=== PATIENT | male | born 1950 | race Caucasian/White ===

== ENCOUNTER → 2017-07-09 | Day surgery (SDC) | payer BC, MEDICARE ==
[2017-07-08 11:39] VITALS: BMI 29.1
[~2017-07-09] MED LIST: FLU VACC QS2017-18 36 mo. & older 0.5 ML SYRINGE IM ONE
[2017-07-09 10:12] LABS: #Basophils 0.1 thou/uL (0.0-0.2); #Monocytes 0.8 thou/uL (0.11-0.59); #Neutrophils 4.2 thou/uL (1.40-6.50); %Basophils 1.2 % (0.0-1.0); %Eosinophils 0.6 % (0.0-10.0); %Lymphocytes 15.6 % (21.0-51.0); %Monocytes 13.7 % (0.0-10.0); Hematocrit 40.1 % (42.0-52.0); Mean Platelet Volume 8.8 fL (7.4-10.4); Red Blood Cell (RBC) Count 4.39 mill/uL (4.70-6.10); White Blood Cell (WBC) Count 6.1 thou/uL (4.8-10.8)
[2017-07-09 10:17] LABS: Prothrombin Time 15.8 SEC (12.0-14.7)
[2017-07-09 10:18] LABS: PTT 50.3 SEC (22.9-36.1)
--- NOTE | 2017-07-09 11:54 | ULT ---
ULTRASOUND GUIDED PARACENTESIS: Date: 07-09-17 History: Symptomatic ascites. FINDINGS: Informed consent was obtained prior to the procedure. Pre-procedural imaging demonstrates irregular peripheral contour of the liver, suspicious for cirrho sis. There is significant ascites throughout the abdomen/pelvis. Skin overlying the mid right abdome n was prepped and draped in normal sterile fashion. With direct sonographic guidance, a 5 Icelandic Lila h catheter is advanced into the ascites and removal of the stylet yields clear yellow fluid. 5 L wer e removed. Significant fluid is seen within the abdomen and pelvis following removal of 5 L. The pat ient tolerated to procedure well. IMPRESSION: Successful ultrasound guided paracentesis. 5 L of clear/yellow ascites obtained. POS: [facility]
[2017-07-10 00:02] VITALS: TEMP 97.7
== END | disposition home or self-care (01) ==
LOC: ULT 08:30
PROVIDERS: ATTEND Internal Medicine
PROC: BW40ZZZ Ultrasonography of Abdomen (ICD-10-PCS; principal; 2017-07-09)
PROC: 0W9G3ZZ Drainage of Peritoneal Cavity, Percutaneous Approach (ICD-10-PCS; principal; 2017-07-09)
DX: R18.8 Other ascites (principal); F17.210 Nicotine dependence, cigarettes, uncomplicated; E78.5 Hyperlipidemia, unspecified; I10 Essential (primary) hypertension; Z79.82 Long term (current) use of aspirin; Z79.899 Other long term (current) drug therapy; Z91.041 Radiographic dye allergy status; Z88.5 Allergy status to narcotic agent; Z98.890 Other specified postprocedural states; Z80.0 Family history of malignant neoplasm of digestive organs
CPT/HCPCS: 36415; 49083; 85025; 85610; 85730; 90471; 90682; G0008; Q2036

== ENCOUNTER 2017-08-07 10:56 | Day surgery (SDC) | payer BC, MEDICARE ==
[2017-08-06 10:10] VITALS: BMI 29.0
[~2017-08-07 10:56] MED LIST changes: -FLU VACC QS2017-18 36 mo. & older 0.5 ML SYRINGE IM ONE; +FLU VACC TS2017-18 (>65YR) 0.5 ML SYRINGE IM ONE
[2017-08-07] MEDS ORDERED: Albumin 25% 200 ML ONE (11:10)
[2017-08-07] MEDS ORDERED: Sodium Chloride 0.9% 10 ML ONE (11:11)
[2017-08-07 12:58] VITALS: BP 138/79; TEMP 97.8
--- NOTE | 2017-08-07 13:41 | ULT ---
SONOGRAPHIC GUIDED PARACENTESIS: HISTORY: Recurrent ascites. FINDINGS: After explaining the procedure and answering all questions, the right lower quadrant was prepped and draped in the usual sterile fashion. Sterile technique, buffered local anesthesia, sonographic raisa nce, and an anterior right lower quadrant approach were used to carefully advance the tip of a 19-gau Mebelrama needle and catheter into the free fluid. The catheter was left to drain a total volume of 6. 0 L clear yellow liquid. The catheter was removed. Postprocedure imaging shows improvement but a mo derate amount of residual liquid. The patient tolerated the procedure well and was dismissed in good condition. IMPRESSION: Technically successful sonographic-guided paracentesis. [facility]: [facility]
== END 2017-08-07 12:00 | disposition home or self-care (01) ==
LOC: ULT 10:56
PROVIDERS: ATTEND Internal Medicine
PROC: BW40ZZZ Ultrasonography of Abdomen (ICD-10-PCS; principal; 2017-08-07)
PROC: 0W9G3ZZ Drainage of Peritoneal Cavity, Percutaneous Approach (ICD-10-PCS; principal; 2017-08-07)
DX: R18.8 Other ascites (principal); K76.6 Portal hypertension; K74.60 Unspecified cirrhosis of liver; I10 Essential (primary) hypertension; E78.5 Hyperlipidemia, unspecified; F17.210 Nicotine dependence, cigarettes, uncomplicated; Z88.5 Allergy status to narcotic agent; Z79.899 Other long term (current) drug therapy; Z98.890 Other specified postprocedural states; Z79.82 Long term (current) use of aspirin; Z88.8 Allergy status to other drugs, medicaments and biological substances
CPT/HCPCS: 49083; A4216; P9047

== ENCOUNTER 2017-08-28 12:11 | Day surgery (SDC) | payer BC, MEDICARE ==
[2017-08-28 11:17] VITALS: BMI 28.3
[2017-08-28 12:27] LABS: #Basophils 0.1 thou/uL (0.0-0.2); #Lymphocytes 0.8 thou/uL (1.20-3.40); #Monocytes 0.7 thou/uL (0.11-0.59); #Neutrophils 5.4 thou/uL (1.40-6.50); %Eosinophils 0.5 % (0.0-10.0); %Lymphocytes 11.5 % (21.0-51.0); %Monocytes 10.5 % (0.0-10.0); Hematocrit 40.1 % (42.0-52.0); Mean Platelet Volume 8.5 fL (7.4-10.4); Red Blood Cell (RBC) Count 4.42 mill/uL (4.70-6.10)
[2017-08-28 12:50] LABS: PTT 40.2 SEC (22.9-36.1); Prothrombin Time 15.7 SEC (12.0-14.7)
[2017-08-28] MEDS ORDERED: Lidocaine 1% PF 5 ML VIAL ONE (13:24)
--- NOTE | 2017-08-28 16:03 | ULT ---
ULTRASOUND GUIDED PARACENTESIS: Date: 08-28-17 History: Ascites. Technique: Informed consent was obtained. The patient was placed on the sonography table in the supine position. Patient was administered albumin intravenously (75 grams) as requested. Limited sonographic evaluati on of the abdomen was performed. An area in the mid axillary line right upper quadrant was marked and then meticulously prepped and draped in the usual sterile fashion. Skin and subcutaneous tissues were infiltrated with buffered 1% Lidocaine for local anesthesia. A sma ll skin incision was made. Utilizing concurrent real-time ultrasound guidance, a 19 gauge Yueh needle with 5 Czech sheath was advanced into the abdomen. After the return of fluid, the sheath was advanc ed and needle was removed. Approximately 8 L of clear straw colored fluid was aspirated. Introducer sheath was removed and hemostatis was achieved with direct pressure. Dry sterile dressing was placed. Patient tolerated procedure well and without immediate complication. Patient was briefly monitored in Radiology Nurses Holding Area prior to discharged. IMPRESSION: Technically successful ultrasound guided paracentesis. [facility]: [facility]
[2017-08-28 16:19] VITALS: BP 128/89; TEMP 98.2
== END 2017-08-28 15:00 | disposition home or self-care (01) ==
LOC: ULT 12:11
PROVIDERS: ATTEND Internal Medicine
PROC: BW40ZZZ Ultrasonography of Abdomen (ICD-10-PCS; principal; 2017-08-28)
PROC: 0W9G3ZX Drainage of Peritoneal Cavity, Percutaneous Approach, Diagnostic (ICD-10-PCS; principal; 2017-08-28)
DX: K74.60 Unspecified cirrhosis of liver (principal); R18.8 Other ascites; I10 Essential (primary) hypertension; E78.5 Hyperlipidemia, unspecified; F17.210 Nicotine dependence, cigarettes, uncomplicated; Z88.5 Allergy status to narcotic agent; Z91.041 Radiographic dye allergy status; Z79.899 Other long term (current) drug therapy; Z80.0 Family history of malignant neoplasm of digestive organs
CPT/HCPCS: 36415; 49083; 85025; 85610; 85730; J2001; P9047

== ENCOUNTER → 2017-09-19 | Day surgery (SDC) | payer BC, MEDICARE ==
[2017-09-18 08:59] VITALS: BMI 30.4
[~2017-09-19] MED LIST changes: +Sodium Chloride 0.9% 10 ML ONE
--- NOTE | 2017-09-19 15:24 | ULT ---
ULTRASOUND GUIDED PARACENTESIS: Date: 09-19-17 History: 67-year-old male with symptomatic ascites. FINDINGS: Informed consent was obtained prior to the procedure. Pre procedural ultrasound demonstrates significant ascites throughout the abdomen/pelvis. The lateral aspect of the mid right abdomen is prepped and draped in normal sterile fashion and anest hetized with 1% buffered Lidocaine. With direct sonographic guidance, a 5 Turks And Caicos Islander [employer]h catheter was advanced into the ascites and removal of the stylet yields yellow fluid. 8 L were removed. The patient tolerated the procedure well. IMPRESSION: Successful ultrasound guided paracentesis yielding 8 L of yellow fluid. POS: [facility]
== END ==
LOC: ULT 12:37
PROVIDERS: ATTEND Internal Medicine
PROC: 0W9G3ZX Drainage of Peritoneal Cavity, Percutaneous Approach, Diagnostic (ICD-10-PCS; principal; 2017-09-19)
DX: K74.60 Unspecified cirrhosis of liver (principal); R18.8 Other ascites; E78.5 Hyperlipidemia, unspecified; I10 Essential (primary) hypertension; F17.200 Nicotine dependence, unspecified, uncomplicated; Z88.5 Allergy status to narcotic agent; Z91.041 Radiographic dye allergy status; Z79.899 Other long term (current) drug therapy
CPT/HCPCS: 49083; A4216; P9047

== ENCOUNTER 2017-10-03 08:06 | Day surgery (SDC) | payer BC, MEDICARE ==
[2017-10-02 10:50] VITALS: BMI 30.4
[~2017-10-03 08:06] MED LIST changes: -Sodium Chloride 0.9% 10 ML ONE
[2017-10-03] MEDS ORDERED: Sodium Bicarbonate 2.4 MEQ/5 ML ONE (08:11)
[2017-10-03 08:35] LABS: #Lymphocytes 0.6 thou/uL (1.20-3.40); #Monocytes 0.7 thou/uL (0.11-0.59); #Neutrophils 5.1 thou/uL (1.40-6.50); %Basophils 0.5 % (0.0-1.0); %Eosinophils 0.7 % (0.0-10.0); %Lymphocytes 9.6 % (21.0-51.0); %Monocytes 10.7 % (0.0-10.0); %Neutrophils 78.5 % (42.0-75.0); Mean Corpuscular Hemoglobin 27.7 pg (27.0-31.0); Mean Corpuscular Volume 86.6 fl (80.0-94.0); Mean Platelet Volume 8.5 fL (7.4-10.4); Platelet Count 145 thou/uL (130-400); RBC Distribution Width 13.8 % (11.5-14.5); Red Blood Cell (RBC) Count 4.68 mill/uL (4.70-6.10); White Blood Cell (WBC) Count 6.5 thou/uL (4.8-10.8)
[2017-10-03 08:36] LABS: INR-International Normal Ratio 1.2; PTT 41.4 SEC (22.9-36.1); Prothrombin Time 15.8 SEC (12.0-14.7)
[2017-10-03 10:43] VITALS: BP 130/74; TEMP 98
--- NOTE | 2017-10-03 11:40 | ULT ---
ULTRASOUND-GUIDED PARACENTESIS: CLINICAL INDICATION: Ascites. PROCEDURE: After informed consent had been obtained, the patient was escorted to the ultrasound suite and placed in a supine position. The abdomen was imaged which revealed adequate ascites for the procedure. Th e skin of the abdomen was then prepped and draped in the standard sterile fashion and the skin surfac e, subcutaneous tissues, and peritoneal lining of the abdomen were anesthetized with 1% Lidocaine buf fered with sodium bicarbonate. A right lower quadrant approach was selected. A small skin incision was made at the site of topical anesthesia. Subsequently, under real-time ultrasound guidance a VHX catheter was advanced through the incision site into the peritoneal cavity. Ascites was present at the catheter hub. The catheter was then secured to vacuum sealed sterile containers, via sterile tub ing and subsequently 10 L of clear yellow ascites was drained from the patient. The patient was then removed from the patient. The patient tolerated the procedure well without evidence of complication . Postprocedure imaging revealed no complication and interval reduction in volume of ascites. The p atient was monitored by a radiology nurse and was stable in condition. IMPRESSION: Technically successful ultrasound-guided paracentesis, as above. POS: [facility]
== END 2017-10-03 10:18 | disposition home or self-care (01) ==
LOC: ULT 08:06
PROVIDERS: ATTEND Internal Medicine
PROC: 0W9G3ZX Drainage of Peritoneal Cavity, Percutaneous Approach, Diagnostic (ICD-10-PCS; principal; 2017-10-03)
DX: K74.60 Unspecified cirrhosis of liver (principal); R18.8 Other ascites; F17.200 Nicotine dependence, unspecified, uncomplicated; Z88.5 Allergy status to narcotic agent; Z91.041 Radiographic dye allergy status; Z79.899 Other long term (current) drug therapy
CPT/HCPCS: 36415; 49083; 85025; 85610; 85730; P9047

== ENCOUNTER 2017-10-24 10:09 | Day surgery (SDC) | payer BC, MEDICARE ==
[2017-10-24] MEDS ORDERED: Sodium Bicarbonate 2.4 MEQ/5 ML ONE (11:16)
[2017-10-24 12:56] VITALS: BMI 22.9
[2017-10-24 12:57] VITALS: BP 130/75; TEMP 98
--- NOTE | 2017-10-24 13:51 | ULT ---
EXAM: ULTRASOUND GUIDED PARACENTESIS: COMPARISON: 10/03/17. HISTORY: Ascites. FINDINGS: Technically successful ultrasound-guided paracentesis. A total of 10 L of yellow-color ascites was a spirated. Post procedure image does demonstrate ascites to still be present. TECHNIQUE: Consent is perform an ultrasound-guided paracentesis. The patient's right lower quadrant was deemed appropriate. The skin was prepped and draped in sterile fashion. 1% Lidocaine, buffered with sodium bicarbonate was used for local anesthesia. Under ultrasound guidance, a 5 Bulgarian 7 cm [employer]eh catheter was advanced into the peritoneal space. Via vacuum bottles, a total 10 L of yellow-color ascites wa s aspirated. The patient tolerated the procedure well. No immediate or post procedure complication. IMPRESSION: Technically successful ultrasound-guided paracentesis. POS: [facility]
== END 2017-10-24 12:15 | disposition home or self-care (01) ==
LOC: ULT 10:09
PROVIDERS: ATTEND Internal Medicine
PROC: 0W9G3ZX Drainage of Peritoneal Cavity, Percutaneous Approach, Diagnostic (ICD-10-PCS; principal; 2017-10-24)
DX: K74.60 Unspecified cirrhosis of liver (principal); R18.8 Other ascites; F17.200 Nicotine dependence, unspecified, uncomplicated; Z88.5 Allergy status to narcotic agent; Z91.041 Radiographic dye allergy status
CPT/HCPCS: 49083; P9047

== ENCOUNTER 2017-10-30 18:25 | Emergency (ER) | payer BC, MEDICARE ==
[2017-10-30 18:54] LABS: #Lymphocytes 0.6 thou/uL (1.20-3.40); #Monocytes 0.6 thou/uL (0.11-0.59); #Neutrophils 4.8 thou/uL (1.40-6.50); %Basophils 0.6 % (0.0-1.0); %Eosinophils 0.4 % (0.0-10.0); %Lymphocytes 9.2 % (21.0-51.0); %Monocytes 9.4 % (0.0-10.0); %Neutrophils 80.4 % (42.0-75.0); Hemoglobin 12.8 g/dL (14.0-18.0); Mean Corpuscular Hemoglobin 28.5 pg (27.0-31.0); Mean Corpuscular Volume 86.2 fl (80.0-94.0); Mean Platelet Volume 8.9 fL (7.4-10.4); Platelet Count 130 thou/uL (130-400); RBC Distribution Width 15.4 % (11.5-14.5); Red Blood Cell (RBC) Count 4.49 mill/uL (4.70-6.10)
[2017-10-30 19:15] LABS: ALT (SGPT) 21 U/L (8-55); AST (SGOT) 29 U/L (5-34); Albumin 3.9 g/dL (3.4-4.8); Alkaline Phosphatase 224 U/L (40-150); Anion Gap 13 mmol/L (10-20); BUN (Urea Nitrogen) 48 mg/dL (8.4-25.7); Bilirubin, Total 0.6 mg/dL (0.2-1.2); Calc. Creatinine Clearance 0 mL/min (70-130); Calcium 9.6 mg/dL (7.8-10.44); Carbon Dioxide 24 mmol/L (23-31); Chloride 103 mmol/L (98-107); Estimated GFR-MDRD 40; Globulin 3.1 g/dL (2.4-3.5); Glucose 86 mg/dL (80-115); Potassium 4.5 mmol/L (3.5-5.1); Sodium 135 mmol/L (136-145)
[2017-10-30 19:51] LABS: INR-International Normal Ratio 1.3; PTT 38.4 SEC (22.9-36.1); Prothrombin Time 16.5 SEC (12.0-14.7)
[2017-10-30 21:59] LABS: Bilirubin Negative (Negative); Blood, Urine Negative (Negative); Clarity CLEAR (Clear); Glucose, Urine (Dipstick) Negative (Negative); Leukocyte Negative (Negative); Nitrite Negative (Negative); Protein, Urine (Dipstick) Negative (Neg-Trace); Specific Gravity, Urine 1.011 (1.002-1.036); Urobilinogen 0.2 mg/dL (0.2-1.0)
--- NOTE | 2017-10-30 23:09 | CT ---
CT ABDOMEN AND PELVIS WITHOUT IV CONTRAST 10/30/17 HISTORY: Alcoholic cirrhosis. Abdominal distention and penile edema. Patient complains of right lower quadrant tenderness to touch. COMPARISON: None available. FINDINGS: There is atelectasis at the left lung base. The right lung base is clear. Vascular calcifications are seen in the abdominal aorta and iliac arteries. There is a moderate amount of intraperitoneal free fluid. Liver demonstrates a nodular peripheral contour suggesting cirrhosis. The spleen is enlarged measurin g 17 cm in craniocaudal dimensions. A 2 cm left adrenal nodule is seen which does not demonstrate an attenuation coefficient consistent with an adrenal adenoma. The pancreas right adrenal gland, bilateral kidneys, and urinary bladder demonstrate a normal CT appe arance. The opacified small bowel is normal in caliber. The appendix is visualized and normal in caliber. Colonic diverticulosis is noted. There is edema within the mesentery. The main portal vein is mildly dilated measuring 1.8 cm suggesting element of portal hypertension. There is subcutaneous edema present. Degenerative changes are noted in the spine. IMPRESSION: 1. Cirrhosis and splenomegaly with findings suggestive of an element of portal hypertension. 2. Moderate amount of ascites. 3. Left adrenal nodule which cannot be characterized as an adrenal adenoma. 4. Colonic diverticulosis. 5. Small fat containing left inguinal hernia. 6. Vascular calcifications. 7. The appendix is visualized and surrounded by intraperitoneal free fluid, but the appendix is partially opacified and filled with gas and is normal in caliber. No definitive findings are seen to suggest appendicitis. POS: [facility]
[2017-10-31 01:05] LABS: BF Color Yellow; Body Fluid Source PARACENTESIS FLD; Clarity Hazy (Clear); Tube # 1
[2017-10-31 01:06] LABS: RBC Background Count 0.003
[2017-10-31 01:11] LABS: BF RBC Count - Manual 723 /cumm; BF WBC/Nonhematics Ct. - Manua 5 /cumm
== END 2017-10-31 01:50 | disposition home or self-care (01) ==
LOC: ERS 18:25
DX: R18.8 Other ascites (principal); F17.210 Nicotine dependence, cigarettes, uncomplicated
CPT/HCPCS: 36415; 49082; 74176; 80053; 81003; 83605; 83690; 85025; 85610; 85730; 89051

== ENCOUNTER 2017-11-14 10:05 | Day surgery (SDC) | payer BC, MEDICARE ==
[2017-11-13 09:35] VITALS: BMI 30.4
[2017-11-14 11:56] VITALS: TEMP 98.4
[2017-11-14 11:59] VITALS: BP 140/80
--- NOTE | 2017-11-14 13:51 | ULT ---
ULTRASOUND GUIDED PARACENTESIS: 11/14/2017 HISTORY: Cirrhosis and ascites. TECHNIQUE: After informed consent was obtained, the patient was placed on the sonography table in the supine pos ition. An appropriate access site was determined with ultrasound guidance. An area in the mid axill khloe line, right upper quadrant, was marked and then meticulously prepped and draped in the usual ster ile fashion. The skin and subcutaneous tissues were infiltrated with buffered 1% Lidocaine for local anesthesia. A small skin incision was made. Utilizing concurrent real-time ultrasound guidance, a 19 gauge needle with 5 Northern Irish sheath was advanc ed into the abdomen. Approximately 10 L of clear, straw-colored fluid was aspirated. The introducer sheath was removed, and hemostasis was achieved with direct pressure. A dry, sterile dressing was p laced. Albumin was administered intravenously during the procedure, as requested. The patient tolerated the procedure well and without immediate complication. IMPRESSION: Technically successful ultrasound guided paracentesis. POS: [facility]
== END 2017-11-14 11:45 | disposition home or self-care (01) ==
LOC: ULT 10:05
PROVIDERS: ATTEND Internal Medicine
PROC: BW40ZZZ Ultrasonography of Abdomen (ICD-10-PCS; principal; 2017-11-14)
PROC: 0W9G3ZZ Drainage of Peritoneal Cavity, Percutaneous Approach (ICD-10-PCS; principal; 2017-11-14)
DX: R18.8 Other ascites (principal); K74.60 Unspecified cirrhosis of liver; I10 Essential (primary) hypertension; E78.5 Hyperlipidemia, unspecified; F17.210 Nicotine dependence, cigarettes, uncomplicated; Z88.5 Allergy status to narcotic agent; Z91.041 Radiographic dye allergy status; Z79.82 Long term (current) use of aspirin; Z79.899 Other long term (current) drug therapy
CPT/HCPCS: 49083

== ENCOUNTER 2017-12-05 09:47 | Day surgery (SDC) | payer MEDICARE, BC ==
[2017-12-04 13:05] VITALS: BMI 30.4
[2017-12-05 10:12] LABS: #Lymphocytes 0.6 thou/uL (1.20-3.40); #Monocytes 0.7 thou/uL (0.11-0.59); #Neutrophils 4.9 thou/uL (1.40-6.50); %Eosinophils 0.5 % (0.0-10.0); %Lymphocytes 9.9 % (21.0-51.0); %Monocytes 10.6 % (0.0-10.0); Hemoglobin 13.6 g/dL (14.0-18.0); Mean Corpuscular HGB CONC 32.9 g/dL (32.0-36.0); Mean Corpuscular Hemoglobin 27.9 pg (27.0-31.0); Mean Platelet Volume 8.7 fL (7.4-10.4); Platelet Count 119 thou/uL (130-400); RBC Distribution Width 15.8 % (11.5-14.5); Red Blood Cell (RBC) Count 4.86 mill/uL (4.70-6.10); White Blood Cell (WBC) Count 6.1 thou/uL (4.8-10.8)
[2017-12-05 10:15] LABS: INR-International Normal Ratio 1.3; PTT 37.7 SEC (22.9-36.1)
[2017-12-05] MEDS ORDERED: Sodium Chloride 0.9% 20 ML ONE (11:08)
[2017-12-05 12:42] VITALS: BP 125/63; TEMP 98.3
--- NOTE | 2017-12-05 15:38 | ULT ---
ULTRASOUND GUIDED PARACENTESIS 12/05/17 Informed consent was obtained from the patient. A large pocket of fluid was localized in the right mi d abdomen. The overlying skin was prepped and draped in the usual sterile manner. A 1% lidocaine solu tion was used to anesthetize overlying soft tissues. A small dermatotomy was made. A 5 Moroccan Yueh ne edle was placed at the peritoneal cavity after localization by sonography. A total of 10 liters of pe ritoneal fluid was removed without difficulty. Some fluid remained after the 10 liters was obtained. IMPRESSION: Successful ultrasound guided paracentesis. POS: [facility]
== END 2017-12-05 12:25 | disposition home or self-care (01) ==
LOC: ULT 09:47
PROVIDERS: ATTEND Internal Medicine
PROC: 0W9G3ZZ Drainage of Peritoneal Cavity, Percutaneous Approach (ICD-10-PCS; principal; 2017-12-05)
DX: R18.8 Other ascites (principal); K74.60 Unspecified cirrhosis of liver; I10 Essential (primary) hypertension; E78.5 Hyperlipidemia, unspecified; F17.210 Nicotine dependence, cigarettes, uncomplicated; Z79.82 Long term (current) use of aspirin; Z79.899 Other long term (current) drug therapy; Z88.5 Allergy status to narcotic agent; Z91.041 Radiographic dye allergy status
CPT/HCPCS: 49083; 85025; 85610; 85730; P9047; 36415; A4216

== ENCOUNTER 2017-12-26 09:50 | Day surgery (SDC) | payer MEDICARE, BC ==
[2017-12-25 13:40] VITALS: BMI 30.4
[2017-12-26] MEDS ORDERED: Lidocaine 1% PF 5 ML VIAL ONE (10:05)
[2017-12-26] MEDS ORDERED: Sodium Bicarbonate 2.5 MEQ/5 ML VIAL ONE (10:05)
[2017-12-26] MEDS ORDERED: Albumin 25% 0 ML ONE (10:05)
[2017-12-26] MEDS ORDERED: Albumin 25% 200 ML ONE ×2 (10:19→10:48)
[2017-12-26 11:57] VITALS: BP 133/87; TEMP 98.6
--- NOTE | 2017-12-26 12:35 | ULT ---
PROCEDURE NOTE: PREPROCEDURE DIAGNOSIS: Ascites. POSTPROCEDURE DIAGNOSIS: Ascites. PROCEDURE: Ultrasound-guided paracentesis. DITCH TENDER: Dr. Rahman. COMMPLIATIONS: None. SPECIMEN: 10 liters of straw-colored fluid. TECHNIQUE: Prior to the procedure, the risks and benefits of an ultrasound-guided paracentesis were explained wi th the patient and he consented fully to the procedure. The area of largest fluid collection in the right lower quadrant of the abdomen was identified. This area of the abdominal wall was prepped and draped in the usual sterile fashion. Lidocaine was used to anesthetize the skin and soft tissues down towards the peritoneal cavity. A [place] eh needle and catheter were placed using ultrasound guidance into the peritoneal cavity. The needle was removed and the catheter left in place. This was connected to multiple vacutainer bottles. A to tyra of 10 liters of fluid was removed. After removal of the fluid, there was a moderate amount of re sidual fluid in the abdomen. IMPRESSION: Status post successful ultrasound-guided paracentesis. POS: [facility]
== END 2017-12-26 11:35 | disposition home or self-care (01) ==
LOC: ULT 09:50
PROVIDERS: ATTEND Internal Medicine
PROC: 0W9G3ZX Drainage of Peritoneal Cavity, Percutaneous Approach, Diagnostic (ICD-10-PCS; principal; 2017-12-26)
PROC: BW40ZZZ Ultrasonography of Abdomen (ICD-10-PCS; 2017-12-26)
DX: K74.60 Unspecified cirrhosis of liver (principal); R18.8 Other ascites; I10 Essential (primary) hypertension; E78.5 Hyperlipidemia, unspecified; F17.210 Nicotine dependence, cigarettes, uncomplicated; Z88.5 Allergy status to narcotic agent; Z91.041 Radiographic dye allergy status; Z79.899 Other long term (current) drug therapy; Z72.89 Other problems related to lifestyle; Z98.890 Other specified postprocedural states; Z80.0 Family history of malignant neoplasm of digestive organs
CPT/HCPCS: 49083; P9047; J2001

== ENCOUNTER 2018-01-16 09:29 | Day surgery (SDC) | payer MEDICARE, BC ==
[2018-01-16 09:50] LABS: #Lymphocytes 0.6 thou/uL (1.20-3.40); #Monocytes 0.5 thou/uL (0.11-0.59); %Basophils 0.8 % (0.0-1.0); %Eosinophils 0.4 % (0.0-10.0); %Lymphocytes 8.9 % (21.0-51.0); %Monocytes 8.1 % (0.0-10.0); %Neutrophils 81.8 % (42.0-75.0); Hemoglobin 12.8 g/dL (14.0-18.0); Mean Corpuscular HGB CONC 33.9 g/dL (32.0-36.0); Mean Corpuscular Hemoglobin 28.8 pg (27.0-31.0); Mean Corpuscular Volume 84.9 fl (80.0-94.0); Mean Platelet Volume 9.1 fL (7.4-10.4); Platelet Count 120 thou/uL (130-400); RBC Distribution Width 14.7 % (11.5-14.5); Red Blood Cell (RBC) Count 4.46 mill/uL (4.70-6.10); White Blood Cell (WBC) Count 6.2 thou/uL (4.8-10.8)
[2018-01-16] MEDS ORDERED: Sodium Bicarbonate 2.5 MEQ/5 ML VIAL ONE (09:56)
[2018-01-16 09:57] LABS: INR-International Normal Ratio 1.3; Prothrombin Time 16.4 SEC (12.0-14.7)
[2018-01-16 09:58] LABS: PTT 33.4 SEC (22.9-36.1)
--- NOTE | 2018-01-16 12:44 | ULT ---
SONOGRAPHIC GUIDED PARACENTESIS: History: Recurrent ascites. FINDINGS: After explaining the procedure and answering all questions, sonographic survey of the abdomen shows a large amount of free fluid. Sterile technique, buffered local anesthesia, sonographic guidance and a n anterior right lower quadrant approach were used to carefully advance a 19 gauge Yueh needle and ca theter into the free fluid. Catheter was left to drain a total volume of 10.0 L clear yellow liquid. Post procedure imaging shows a small amount of residual fluid. The patient tolerated the procedure we ll and was eventually discharged in good condition. IMPRESSION: Technically successful sonographic guided paracentesis. POS: [facility]
[2018-01-16 13:00] VITALS: BP 95/41; TEMP 97.7
== END 2018-01-16 11:45 | disposition home or self-care (01) ==
LOC: ULT 09:29
PROVIDERS: ATTEND Internal Medicine
PROC: 0W9G3ZZ Drainage of Peritoneal Cavity, Percutaneous Approach (ICD-10-PCS; principal; 2018-01-16)
PROC: BW40ZZZ Ultrasonography of Abdomen (ICD-10-PCS; 2018-01-16)
DX: R18.8 Other ascites (principal); K74.60 Unspecified cirrhosis of liver; I10 Essential (primary) hypertension; E78.5 Hyperlipidemia, unspecified; F17.210 Nicotine dependence, cigarettes, uncomplicated; Z79.82 Long term (current) use of aspirin; Z79.899 Other long term (current) drug therapy; Z88.5 Allergy status to narcotic agent; Z91.041 Radiographic dye allergy status
CPT/HCPCS: 49083; 85025; 85610; 85730; P9047; 36415

== ENCOUNTER 2018-02-06 10:11 | Day surgery (SDC) | payer MEDICARE, BC ==
[2018-02-05 11:44] VITALS: BMI 30.4
[2018-02-06 13:04] VITALS: BP 136/79; TEMP 97.9
--- NOTE | 2018-02-06 15:55 | ULT ---
ULTRASOUND GUIDED PARACENTESIS: HISTORY: Ascites. COMPARISON: 01/16/2018 FINDINGS: Successful ultrasound guided paracentesis. A total of 10 L of yellow-colored ascites was aspirated. There were no immediate or post procedure complications. TECHNIQUE: Consent obtained to perform an ultrasound guided paracentesis. The right lower quadrant was deemed a ppropriate. The skin was prepped and draped in a sterile fashion, and 1% Lidocaine, buffered with so dium bicarbonate, was used for local anesthesia. Under ultrasound guidance, a 5 Algerian, 7 cm cathete r was advanced into the peritoneal space. Via vacuum bottles, a total of 10 L of yellow-colored asci valdemar was aspirated. There were no immediate or post procedure complications. IMPRESSION: Technically successful ultrasound guided paracentesis. POS: [facility]
== END 2018-02-06 11:55 | disposition home or self-care (01) ==
LOC: ULT 10:11
PROVIDERS: ATTEND Internal Medicine
PROC: 0W9G3ZZ Drainage of Peritoneal Cavity, Percutaneous Approach (ICD-10-PCS; principal; 2018-02-06)
DX: R18.8 Other ascites (principal); K74.60 Unspecified cirrhosis of liver
CPT/HCPCS: 49083

== ENCOUNTER 2018-02-27 09:57 | Day surgery (SDC) | payer MEDICARE, BC ==
[2018-02-26 12:29] VITALS: BMI 24.1
[2018-02-27 10:18] LABS: #Lymphocytes 0.6 thou/uL (1.20-3.40); #Monocytes 0.6 thou/uL (0.11-0.59); #Neutrophils 5.1 thou/uL (1.40-6.50); %Basophils 0.4 % (0.0-1.0); %Eosinophils 0.3 % (0.0-10.0); %Lymphocytes 8.9 % (21.0-51.0); %Monocytes 9.5 % (0.0-10.0); %Neutrophils 80.9 % (42.0-75.0); Hemoglobin 12.4 g/dL (14.0-18.0); Mean Corpuscular HGB CONC 32.3 g/dL (32.0-36.0); Mean Corpuscular Hemoglobin 27.7 pg (27.0-31.0); Mean Corpuscular Volume 85.7 fl (80.0-94.0); Mean Platelet Volume 8.4 fL (7.4-10.4); Platelet Count 105 thou/uL (130-400); Red Blood Cell (RBC) Count 4.47 mill/uL (4.70-6.10); White Blood Cell (WBC) Count 6.3 thou/uL (4.8-10.8)
[2018-02-27 10:20] LABS: INR-International Normal Ratio 1.3; PTT 41.8 SEC (22.9-36.1); Prothrombin Time 16.5 SEC (12.0-14.7)
[2018-02-27] MEDS ORDERED: Sodium Chloride 0.9% 20 ML ONE (11:04)
[2018-02-27 12:24] VITALS: BP 107/60; TEMP 98.2
--- NOTE | 2018-02-27 13:12 | ULT ---
ULTRASOUND GUIDED PARACENTESIS: DATE: 02/27/18. COMPARISON: None. HISTORY: A 68-year-old male with symptomatic ascites. FINDINGS: Informed consent obtained prior to the procedure. Preprocedural imaging demonstrates large-volume ascites throughout the abdomen/pelvis. Mid right abdomen is prepped and draped in normal sterile fashion and the skin is anesthetized with 1 % buffered Lidocaine. With direct sonographic guidance, a 5 Cymro ArQuleeh catheter is advanced into th e ascites and removal of stylette yields yellow fluid. Ten liters were removed. The patient tolerat ed the procedure well. Significant ascites is left following removal of 10 liters. IMPRESSION: Successful ultrasound-guided paracentesis as above. POS: [facility]
== END 2018-02-27 12:00 | disposition home or self-care (01) ==
LOC: ULT 09:57
PROVIDERS: ATTEND Internal Medicine
PROC: 0W9G3ZZ Drainage of Peritoneal Cavity, Percutaneous Approach (ICD-10-PCS; principal; 2018-02-27)
DX: R18.8 Other ascites (principal); F17.200 Nicotine dependence, unspecified, uncomplicated; K74.60 Unspecified cirrhosis of liver; I10 Essential (primary) hypertension; K21.9 Gastro-esophageal reflux disease without esophagitis; D64.9 Anemia, unspecified; Z88.5 Allergy status to narcotic agent; Z79.899 Other long term (current) drug therapy; Z91.041 Radiographic dye allergy status
CPT/HCPCS: 49083; 85025; 85610; 85730; P9047; 36415; A4216

== ENCOUNTER 2018-03-13 12:39 | Day surgery (SDC) | payer MEDICARE, BC ==
[2018-03-12 14:14] VITALS: BMI 16.2
[2018-03-13] MEDS ORDERED: Sodium Chloride 0.9% 20 ML ONE (13:28)
[2018-03-13 15:58] VITALS: BP 119/49; TEMP 98.2
== END 2018-03-13 14:15 | disposition home or self-care (01) ==
LOC: ULT 12:39
PROVIDERS: ATTEND Internal Medicine
PROC: 0W9G3ZZ Drainage of Peritoneal Cavity, Percutaneous Approach (ICD-10-PCS; principal; 2018-03-13)
DX: K70.31 Alcoholic cirrhosis of liver with ascites (principal); I10 Essential (primary) hypertension; E78.5 Hyperlipidemia, unspecified; F17.210 Nicotine dependence, cigarettes, uncomplicated; Z79.899 Other long term (current) drug therapy; Z88.5 Allergy status to narcotic agent; Z91.041 Radiographic dye allergy status
CPT/HCPCS: 49083; P9047; A4216

== ENCOUNTER 2018-03-27 10:35 | Day surgery (SDC) | payer MEDICARE, BC ==
[2018-03-27 11:26] LABS: #Lymphocytes 0.5 thou/uL (1.20-3.40); #Monocytes 0.5 thou/uL (0.11-0.59); #Neutrophils 5.5 thou/uL (1.40-6.50); %Basophils 0.4 % (0.0-1.0); %Eosinophils 0.3 % (0.0-10.0); %Lymphocytes 7.2 % (21.0-51.0); %Monocytes 8.2 % (0.0-10.0); %Neutrophils 83.8 % (42.0-75.0); Mean Corpuscular HGB CONC 33.5 g/dL (32.0-36.0); Mean Corpuscular Volume 83.5 fL (78.0-98.0); Mean Platelet Volume 8.3 fL (7.4-10.4); Platelet Count 139 thou/uL (130-400); RBC Distribution Width 14.8 % (11.5-14.5); White Blood Cell (WBC) Count 6.5 thou/uL (4.8-10.8)
[2018-03-27 11:31] LABS: INR-International Normal Ratio 1.3; PTT 39.8 SEC (22.9-36.1)
[2018-03-27 11:46] LABS: ALT (SGPT) 17 U/L (8-55); AST (SGOT) 18 U/L (5-34); Albumin 4.1 g/dL (3.4-4.8); Alkaline Phosphatase 252 U/L (40-150); Anion Gap 15 mmol/L (10-20); BUN (Urea Nitrogen) 37 mg/dL (8.4-25.7); Bilirubin, Total 0.6 mg/dL (0.2-1.2); Calc. Creatinine Clearance 47 mL/min (70-130); Calcium 9.4 mg/dL (7.8-10.44); Carbon Dioxide 20 mmol/L (23-31); Chloride 104 mmol/L (98-107); Estimated GFR-MDRD 41; Globulin 2.9 g/dL (2.4-3.5); Glucose 87 mg/dL (80-115); Potassium 4.3 mmol/L (3.5-5.1); Sodium 135 mmol/L (136-145)
[2018-03-27 12:39] VITALS: BP 136/67; TEMP 98.1; BMI 27.3
--- NOTE | 2018-03-27 14:49 | ULT ---
ULTRASOUND GUIDED PARACENTESIS: HISTORY: Ascites. COMPARISON: 03/13/2018 TECHNIQUE: Consent obtained for an ultrasound guided paracentesis. The right lower quadrant was deemed appropri ate. The skin was prepped and draped in a sterile fashion, and 1% Lidocaine, buffered with sodium bi carbonate, was used for local anesthesia. Under sonographic guidance, a 5 Welsh, 7 cm Yueh catheter was advanced into the peritoneal space. Via vacuum bottles, a total of 10 L of yellow-colored ascit es was aspirated. The patient tolerated the procedure well. No immediate or post procedure complica tions. FINDINGS: Technically successful ultrasound guided paracentesis. A total of 10 L of yellow colored ascites was aspirated. There were no immediate post procedure complications. Post procedure images demonstrate ascites to still be present. IMPRESSION: Successful ultrasound-guided paracentesis. POS: [facility]
== END 2018-03-27 12:25 | disposition home or self-care (01) ==
LOC: ULT 10:35
PROVIDERS: ATTEND Internal Medicine
PROC: 0W9G3ZZ Drainage of Peritoneal Cavity, Percutaneous Approach (ICD-10-PCS; principal; 2018-03-27)
DX: R18.8 Other ascites (principal); K74.60 Unspecified cirrhosis of liver; I10 Essential (primary) hypertension; F17.200 Nicotine dependence, unspecified, uncomplicated; D64.9 Anemia, unspecified; K21.9 Gastro-esophageal reflux disease without esophagitis; E78.00 Pure hypercholesterolemia, unspecified; Z79.899 Other long term (current) drug therapy; Z88.5 Allergy status to narcotic agent; Z91.041 Radiographic dye allergy status
CPT/HCPCS: 49083; 80053; 85025; 85610; 85730

== ENCOUNTER 2018-04-10 09:56 | Day surgery (SDC) | payer MEDICARE, BC ==
[2018-04-10] MEDS ORDERED: Lidocaine 1% PF 5 ML VIAL ONE (10:04)
[2018-04-10] MEDS ORDERED: Sodium Bicarbonate 2.5 MEQ/5 ML VIAL ONE (10:04)
[2018-04-10] MEDS ORDERED: Sodium Chloride 0.9% 10 ML ONE (10:04)
[2018-04-10] MEDS ORDERED: Albumin 25% 100 ML ONE (10:25)
[2018-04-10 11:38] VITALS: BP 125/69; TEMP 98.6
--- NOTE | 2018-04-10 12:34 | ULT ---
ULTRASOUND GUIDED PARACENTESIS: 04/10/2018 HISTORY: Cirrhosis and recurrent ascites. TECHNIQUE: After informed consent was obtained, the patient as placed on the angiography table in the supine pos ition. Limited sonographic evaluation of the abdomen was performed. An area in the mid axillary mara e right upper quadrant was marked and then meticulously prepped and draped in the usual sterile fashi on. The skin and subcutaneous tissues were infiltrated with buffered 1% Lidocaine for local anesthes ia, at the intended puncture site. A small skin incision was made. Utilizing concurrent real-time ultrasound guidance, a 19 gauge V[employer] needle with a 5 Vincentian sheath was advanced into the abdomen. After the return of fluid, the catheter was advanced and the needle was removed. Approximately 10 L of clear, straw-colored fluid was aspir ated. Albumin 100 g was administered intravenously during the procedure, as requested. After 10 L of fluid was aspirated, the catheter was removed, and hemostasis was achieved with direct pressure. Follow-up sonogram demonstrates a small to moderate amount of intraperitoneal free fluid r emaining within the abdomen. A dry, sterile dressing was placed at the puncture site. The patient tolerated the procedure well an d without immediate complication. IMPRESSION: Technically successful ultrasound guided paracentesis. POS: [facility]
== END 2018-04-10 11:30 | disposition home or self-care (01) ==
LOC: ULT 09:56
PROVIDERS: ATTEND Internal Medicine
PROC: 0W9G3ZZ Drainage of Peritoneal Cavity, Percutaneous Approach (ICD-10-PCS; principal; 2018-04-10)
DX: R18.8 Other ascites (principal); K74.60 Unspecified cirrhosis of liver; F17.200 Nicotine dependence, unspecified, uncomplicated; I10 Essential (primary) hypertension; D64.9 Anemia, unspecified; K21.9 Gastro-esophageal reflux disease without esophagitis; Z88.5 Allergy status to narcotic agent; Z91.041 Radiographic dye allergy status; Z79.899 Other long term (current) drug therapy
CPT/HCPCS: 49083; P9047; A4216; J2001

== ENCOUNTER → 2018-04-24 | Day surgery (SDC) | payer MEDICARE, BC ==
[2018-04-23 12:44] VITALS: BMI 24.8
[~2018-04-24] MED LIST changes: -FLU VACC TS2017-18 (>65YR) 0.5 ML SYRINGE IM ONE; +Prevnar 13-Val Conj/PF 0.5 ML SYRINGE IM ONE
[2018-04-24 14:16] VITALS: TEMP 97.8
--- NOTE | 2018-04-24 14:21 | ULT ---
PROCEDURE ULTRASOUND GUIDED ABDOMINAL PARACENTESIS: Date: 04/24/18 INDICATION: Cirrhosis with recurrent ascites. FINDINGS: 10 liters of yellowish clear ascitic fluid remoted from the right lower quadrant. PROCEDURE NOTE: Four quadrant ultrasound shows large volume ascites in all quadrants. Right lower quadrant chosen for puncture. Overlying skin was prepped and draped in the sterile manner. Local anesthesia administered with lidocaine and bicarb. Tiny skin incision made with scalpel. A 5 Nepali Pulse catheter with needl e in place was inserted under ultrasound guidance into the ascites of the right lower quadrant. Ashley ter was advanced as needle was removed. The catheter was attached to suction drainage. 10 liters kaet orin. Postprocedure shows mild residual ascites. There were no problems or complications. POS: [facility]
== END ==
LOC: ULT 12:39
PROVIDERS: ATTEND Radiology Diagnostic Radiology
PROC: 0W9G3ZZ Drainage of Peritoneal Cavity, Percutaneous Approach (ICD-10-PCS; principal; 2018-04-24)
DX: R18.8 Other ascites (principal); K74.60 Unspecified cirrhosis of liver; R93.8 Abnormal findings on diagnostic imaging of other specified body structures
CPT/HCPCS: 49083; P9047

== ENCOUNTER 2018-05-08 09:56 | Day surgery (SDC) | payer MEDICARE, BC ==
[2018-05-07 13:14] VITALS: BMI 24.8
[2018-05-08 10:15] LABS: #Lymphocytes 0.5 thou/uL (1.20-3.40); #Monocytes 0.6 thou/uL (0.11-0.59); #Neutrophils 4.4 thou/uL (1.40-6.50); %Basophils 0.6 % (0.0-1.0); %Eosinophils 0.6 % (0.0-10.0); %Lymphocytes 9.5 % (21.0-51.0); %Monocytes 10.6 % (0.0-10.0); %Neutrophils 78.7 % (42.0-75.0); Hemoglobin 12.1 g/dL (14.0-18.0); Mean Corpuscular HGB CONC 31.6 g/dL (32.0-36.0); Mean Corpuscular Hemoglobin 26.8 pg (27.0-31.0); Mean Corpuscular Volume 84.7 fL (78.0-98.0); Mean Platelet Volume 9.5 fL (7.4-10.4); Platelet Count 112 thou/uL (130-400); RBC Distribution Width 15.5 % (11.5-14.5); Red Blood Cell (RBC) Count 4.54 mill/uL (4.70-6.10); White Blood Cell (WBC) Count 5.6 thou/uL (4.8-10.8)
[2018-05-08 10:22] LABS: INR-International Normal Ratio 1.2; PTT 40.1 SEC (22.9-36.1); Prothrombin Time 15.6 SEC (12.0-14.7)
[2018-05-08] MEDS ORDERED: Sodium Bicarbonate 2.5 MEQ/5 ML VIAL ONE (10:22)
[2018-05-08] MEDS ORDERED: Lidocaine 1% PF 5 ML VIAL ONE (10:23)
[2018-05-08 12:07] VITALS: BP 137/76; TEMP 98.1
--- NOTE | 2018-05-08 12:35 | ULT ---
ULTRASOUND GUIDED PARACENTESIS: Date: 05-08-18 History: Recurrent ascites in a patient with cirrhosis. Technique: After informed consent was obtained, patient was placed on the sonography table in the supine positio n. Limited sonographic evaluation of the abdomen was performed. An area in the midaxillary line right upper quadrant was marked and the area was meticulously prepped and draped in the usual sterile fash ion. Skin and subcutaneous tissues were infiltrated with buffered 1% Lidocaine for local anesthesia. Small skin incision was made. A 19 gauge [employer] needle with 5 Georgian catheter was advanced into the abdomen. After the return of fluid, the catheter was advanced and needle was removed. Approximately 10 L of c lear straw colored fluid was aspirated. Patient was administered of 100 grams of Albumin during the s tudy as requested. After 10 L of fluid was drained, follow up sonographic imaging demonstrates a mode rately large amount of intraperitoneal free fluid persisting in the abdomen. Dry sterile dressing was placed at the catheter entry site. Patient tolerated the procedure well and without immediate compli cation. IMPRESSION: Technically successful ultrasound guided paracentesis. [facility]: [facility]
== END 2018-05-08 11:55 | disposition home or self-care (01) ==
LOC: ULT 09:56
PROVIDERS: ATTEND Internal Medicine
PROC: 0W9G3ZZ Drainage of Peritoneal Cavity, Percutaneous Approach (ICD-10-PCS; principal; 2018-05-08)
DX: K74.60 Unspecified cirrhosis of liver (principal); R18.8 Other ascites; Z88.5 Allergy status to narcotic agent; Z91.041 Radiographic dye allergy status; Z79.82 Long term (current) use of aspirin; Z79.899 Other long term (current) drug therapy
CPT/HCPCS: 49083; 85025; 85610; 85730; P9047; 36415; J2001

== ENCOUNTER → 2018-05-22 | Day surgery (SDC) | payer MEDICARE, BC ==
[2018-05-21 12:43] VITALS: BMI 27.9
[~2018-05-22] MED LIST changes: +Lidocaine 1% PF 5 ML VIAL ONE
[2018-05-22 12:30] VITALS: TEMP 97.6
--- NOTE | 2018-05-22 14:44 | ULT ---
SONOGRAPHIC GUIDED PARACENTESIS: HISTORY: Recurrent ascites. FINDINGS: After explaining the procedure and answering all questions, sonographic survey shows a large amount o f free fluid. Sterile technique, buffered local anesthesia, sonographic guidance, and a right latera l approach were used to carefully advance a 19 gauge Yueh needle and catheter into the free fluid. T he catheter was left to drain a total volume of 10 L of clear yellow liquid. The catheter was remove d. A large amount of liquid remained within the abdomen. The patient tolerated the procedure well a nd was dismissed in good condition. IMPRESSION: Technically successful sonographic guided paracentesis. POS: [facility]
== END ==
LOC: ULT 10:38
PROVIDERS: ATTEND Internal Medicine
PROC: 0W9G3ZZ Drainage of Peritoneal Cavity, Percutaneous Approach (ICD-10-PCS; principal; 2018-05-22)
DX: R18.8 Other ascites (principal); K74.60 Unspecified cirrhosis of liver; Z88.5 Allergy status to narcotic agent; Z79.899 Other long term (current) drug therapy
CPT/HCPCS: 49083; J2001

== ENCOUNTER 2018-06-05 12:36 | Day surgery (SDC) | payer MEDICARE, BC ==
[2018-06-05 15:45] VITALS: BMI 27.9
[2018-06-05 15:55] VITALS: BP 129/71; TEMP 97.7
--- NOTE | 2018-06-05 15:55 | ULT ---
ULTRASOUND GUIDED PARACENTESIS: HISTORY: Ascites. COMPARISON: 05/22/18. FINDINGS: Technically successful ultrasound-guided paracentesis. A total of 10 L of yellow-color ascites was a spirated. The patient tolerated the procedure well. No immediate or postprocedure complications. TECHNIQUE: Consent was obtained to perform ultrasound-guided paracentesis. The patient's abdomen was evaluated. The right lower quadrant was deemed appropriate. The skin was prepped and draped in sterile fashio n. 1% Lidocaine, buffered with sodium bicarbonate, was used for local anesthesia. Under ultrasound guidance, a 5 Surinamese 7 cm Rundowneh catheter was advanced into the peritoneal space. Via vacuum bottles, a total of 10 L of dark yellow-colored ascites was aspirated. The patient tolerated the procedure we ll. No immediate or postprocedure complications. IMPRESSION: Technically successful ultrasound-guided paracentesis. POS: [facility]
== END 2018-06-05 14:20 | disposition home or self-care (01) ==
LOC: ULT 12:36
PROVIDERS: ATTEND Internal Medicine
PROC: 0W9G3ZZ Drainage of Peritoneal Cavity, Percutaneous Approach (ICD-10-PCS; principal; 2018-06-05)
DX: K70.31 Alcoholic cirrhosis of liver with ascites (principal); I10 Essential (primary) hypertension; E78.5 Hyperlipidemia, unspecified; F17.210 Nicotine dependence, cigarettes, uncomplicated; Z79.82 Long term (current) use of aspirin; Z79.899 Other long term (current) drug therapy; Z88.5 Allergy status to narcotic agent; Z91.041 Radiographic dye allergy status
CPT/HCPCS: 49083

== ENCOUNTER 2018-06-19 09:37 | Day surgery (SDC) | payer MEDICARE, BC ==
[2018-06-19 09:58] LABS: #Lymphocytes 0.6 thou/uL (1.20-3.40); #Monocytes 0.8 thou/uL (0.11-0.59); %Basophils 0.6 % (0.0-1.0); %Eosinophils 0.4 % (0.0-10.0); %Lymphocytes 11.4 % (21.0-51.0); %Neutrophils 73.6 % (42.0-75.0); Hemoglobin 12.8 g/dL (14.0-18.0); Mean Corpuscular HGB CONC 32.7 g/dL (32.0-36.0); Mean Corpuscular Hemoglobin 27.4 pg (27.0-31.0); Mean Corpuscular Volume 83.8 fL (78.0-98.0); Mean Platelet Volume 9.6 fL (7.4-10.4); Platelet Count 121 thou/uL (130-400); RBC Distribution Width 15.2 % (11.5-14.5); Red Blood Cell (RBC) Count 4.67 mill/uL (4.70-6.10); White Blood Cell (WBC) Count 5.4 thou/uL (4.8-10.8)
[2018-06-19] MEDS ORDERED: Lidocaine 1% PF 5 ML VIAL ONE (10:03)
[2018-06-19 10:04] LABS: INR-International Normal Ratio 1.3; PTT 40.6 SEC (22.9-36.1); Prothrombin Time 16.4 SEC (12.0-14.7)
[2018-06-19 10:15] LABS: ALT (SGPT) 12 U/L (8-55); AST (SGOT) 21 U/L (5-34); Albumin 3.8 g/dL (3.4-4.8); Alkaline Phosphatase 169 U/L (40-150); Anion Gap 11 mmol/L (10-20); BUN (Urea Nitrogen) 42 mg/dL (8.4-25.7); Bilirubin, Total 0.8 mg/dL (0.2-1.2); Calc. Creatinine Clearance 0 mL/min (70-130); Calcium 9.6 mg/dL (7.8-10.44); Carbon Dioxide 25 mmol/L (23-31); Chloride 102 mmol/L (98-107); Estimated GFR-MDRD 34; Globulin 3.2 g/dL (2.4-3.5); Glucose 90 mg/dL (80-115); Potassium 4.2 mmol/L (3.5-5.1); Sodium 134 mmol/L (136-145)
[2018-06-19 13:30] VITALS: BP 129/83; TEMP 98.6
--- NOTE | 2018-06-19 14:24 | ULT ---
ULTRASOUND GUIDED PARACENTESIS: COMPARISON: 06/13/2018. HISTORY: Ascites. FINDINGS: Successful ultrasound-guided paracentesis. A total of 10 liters of yellow-color ascites was aspirate d. No immediate or post-procedure complication. TECHNIQUE: Consent was obtained to perform an ultrasound-guided paracentesis. Right lower quadrant was deemed a ppropriate. The skin was prepped and draped in a sterile fashion. 1% Lidocaine, buffered with sodiu m bicarbonate, was used for local anesthesia. Under ultrasound guidance, a 7 cm 5 Malay Tweetwall cathet er was advanced into the peritoneal space. Via vacuum bottles, a total of 10 liters of yellow-colore d ascites was aspirated. The patient tolerated the procedure well. No immediate or post-procedure c omplication. IMPRESSION: Successful ultrasound-guided paracentesis. [facility]: [facility]
== END 2018-06-19 11:50 | disposition home or self-care (01) ==
LOC: ULT 09:37
PROVIDERS: ATTEND Internal Medicine
PROC: 0W9G3ZZ Drainage of Peritoneal Cavity, Percutaneous Approach (ICD-10-PCS; principal; 2018-06-19)
DX: R18.8 Other ascites (principal); K74.60 Unspecified cirrhosis of liver; Z91.041 Radiographic dye allergy status; Z88.5 Allergy status to narcotic agent; Z88.8 Allergy status to other drugs, medicaments and biological substances
CPT/HCPCS: 49083; 80053; 85025; 85610; 85730; P9047; 36415; J2001

== ENCOUNTER 2018-07-03 10:02 | Day surgery (SDC) | payer MEDICARE, BC ==
[2018-07-02 14:57] VITALS: BMI 27.9
[2018-07-03] MEDS ORDERED: Lidocaine 1% PF 5 ML VIAL ONE (10:28)
[2018-07-03] MEDS ORDERED: Sodium Bicarbonate 2.5 MEQ/5 ML VIAL ONE (10:28)
--- NOTE | 2018-07-03 13:16 | ULT ---
ULTRASOUND-GUIDED PARACENTESIS: CLINICAL INDICATION: Ascites. PROCEDURE: After informed consent had been obtained, the patient was escorted to the ultrasound suite and placed in a supine position. The abdomen was imaged which revealed adequate ascites for the procedure. Th e skin of the abdomen was then prepped and draped in the standard sterile fashion and the skin surfac e, subcutaneous tissues, and peritoneal lining of the abdomen were anesthetized with 1% Lidocaine buf fered with sodium bicarbonate. A right lower quadrant approach was selected. A small skin incision was made at the site of topical anesthesia. Subsequently, under real-time ultrasound guidance a [employer] catheter was advanced through the incision site into the peritoneal cavity. Ascites was present at the catheter hub. The catheter was then secured to vacuum sealed sterile containers, via sterile tub ing and subsequently 10 L of clear yellow ascites was drained from the patient. The patient was then removed from the patient. The patient tolerated the procedure well without evidence of complication . Post procedure imaging revealed no complication and interval reduction in volume of ascites. The patient was monitored by a radiology nurse and was stable in condition. IMPRESSION: Technically successful ultrasound-guided paracentesis, as above. POS: [facility]
[2018-07-03 13:35] VITALS: BP 134/77; TEMP 98.6
== END 2018-07-03 12:15 | disposition home or self-care (01) ==
LOC: ULT 10:02
PROVIDERS: ATTEND Internal Medicine
PROC: 0W9G3ZZ Drainage of Peritoneal Cavity, Percutaneous Approach (ICD-10-PCS; principal; 2018-07-03)
DX: R18.8 Other ascites (principal); K74.60 Unspecified cirrhosis of liver; Z88.5 Allergy status to narcotic agent; Z91.041 Radiographic dye allergy status; Z88.8 Allergy status to other drugs, medicaments and biological substances
CPT/HCPCS: 49083; P9047; J2001

== ENCOUNTER → 2018-07-11 | Day surgery (SDC) | payer MEDICARE, BC ==
[2018-07-10 12:07] VITALS: BMI 26.2
[~2018-07-11] MED LIST changes: -Lidocaine 1% PF 5 ML VIAL ONE
[2018-07-11 12:40] VITALS: BP 140/68; TEMP 96
--- NOTE | 2018-07-11 18:52 | ULT ---
DATE: 07/11/18 PROCEDURE: Ultrasound guided abdominal paracentesis. INDICATIONS: Cirrhosis with recurrent ascites. FINDINGS: 10 liters of yellowish clear ascitic fluid removed from the right lower quadrant. PROCEDURE NOTE: Four quadrant ultrasound showed large volume ascites. Right lower quadrant was chosen for puncture. The overlying skin was prepped and draped in the sterile manner. Local anesthesia was administered w ith lidocaine and bicarb. A 5 Malay [employer] catheter was introduced into the fluid in the right lower q uadrant under ultrasound guidance. The catheter was advanced as the needle was removed. The catheter was then attached to suction drainage. 10 liters of ascitic fluid removed. Postprocedure ultrasound r evealed residual small volume ascites. There were no problems or complications. POS: [facility]
== END ==
LOC: ULT 10:32
PROVIDERS: ATTEND Internal Medicine
PROC: 0W9G3ZZ Drainage of Peritoneal Cavity, Percutaneous Approach (ICD-10-PCS; principal; 2018-07-11)
DX: K70.31 Alcoholic cirrhosis of liver with ascites (principal); I10 Essential (primary) hypertension; E78.5 Hyperlipidemia, unspecified; F17.210 Nicotine dependence, cigarettes, uncomplicated; Z79.82 Long term (current) use of aspirin; Z79.899 Other long term (current) drug therapy; Z88.5 Allergy status to narcotic agent; Z91.041 Radiographic dye allergy status
CPT/HCPCS: 49083

== ENCOUNTER 2018-07-17 10:00 | Day surgery (SDC) | payer MEDICARE, BC ==
[2018-07-17] MEDS ORDERED: Lidocaine 1% PF 5 ML VIAL ONE (10:05)
[2018-07-17] MEDS ORDERED: Sodium Bicarbonate 2.5 MEQ/5 ML VIAL ONE (10:05)
[2018-07-17 12:15] VITALS: BP 145/75; TEMP 97.4
--- NOTE | 2018-07-17 13:34 | ULT ---
ULTRASOUND GUIDED PARACENTESIS: HISTORY: Ascites. TECHNIQUE: Informed consent was obtained from the patient. A large amount of intraperitoneal fluid was located in the right peritoneal cavity. The overlying skin was prepped and draped in the usual sterile yonis r. A 1% Lidocaine solution was used to anesthetize the overlying soft tissues. A small dermatotomy was made. A 5 Slovak Yueh needle was placed into the peritoneal cavity, and 7250 mL of peritoneal fl uid was removed without difficulty. IMPRESSION: Successful ultrasound guided paracentesis. [facility]: [facility]
== END 2018-07-17 11:45 | disposition home or self-care (01) ==
LOC: ULT 10:00
PROVIDERS: ATTEND Internal Medicine
PROC: 0W9G3ZZ Drainage of Peritoneal Cavity, Percutaneous Approach (ICD-10-PCS; principal; 2018-07-17)
DX: R18.8 Other ascites (principal); K74.60 Unspecified cirrhosis of liver
CPT/HCPCS: 49083; P9047; J2001

== ENCOUNTER 2018-07-24 09:29 | Day surgery (SDC) | payer MEDICARE, BC ==
[2018-07-23 13:09] VITALS: BMI 26.2
[2018-07-24 09:49] LABS: INR-International Normal Ratio 1.3; Prothrombin Time 15.8 SEC (12.0-14.7)
[2018-07-24 09:50] LABS: PTT 42.1 SEC (22.9-36.1)
[2018-07-24 09:56] LABS: #Lymphocytes 0.4 thou/uL (1.20-3.40); #Monocytes 0.6 thou/uL (0.11-0.59); %Basophils 0.6 % (0.0-1.0); %Eosinophils 0.4 % (0.0-10.0); %Lymphocytes 6.8 % (21.0-51.0); %Monocytes 9.4 % (0.0-10.0); %Neutrophils 82.8 % (42.0-75.0); Hemoglobin 12.2 g/dL (14.0-18.0); Mean Corpuscular HGB CONC 31.9 g/dL (32.0-36.0); Mean Corpuscular Hemoglobin 26.6 pg (27.0-31.0); Mean Corpuscular Volume 83.2 fL (78.0-98.0); Mean Platelet Volume 9.9 fL (7.4-10.4); Platelet Count 86 thou/uL (130-400); RBC Distribution Width 15.3 % (11.5-14.5); Red Blood Cell (RBC) Count 4.57 mill/uL (4.70-6.10); White Blood Cell (WBC) Count 6.1 thou/uL (4.8-10.8)
[2018-07-24] MEDS ORDERED: Albumin 25% 200 ML ONE (10:12)
[2018-07-24] MEDS ORDERED: Sodium Bicarbonate 2.5 MEQ/5 ML VIAL ONE (10:12)
[2018-07-24] MEDS ORDERED: Lidocaine 1% PF 5 ML VIAL ONE (10:13)
--- NOTE | 2018-07-24 16:47 | ULT ---
ULTRASOUND GUIDED PARACENTESIS: 07/24/18 HISTORY: Cirrhosis and refractory ascites. TECHNIQUE: After informed consent was obtained, the patient was placed on the sonography table in the supine pos ition. Appropriate access site was determined with ultrasound guidance. The area was meticulously pre pped and draped in the usual sterile fashion. Skin and subcutaneous tissues were infiltrated with buf fered 1% lidocaine for local anesthesia. Small skin incision was made. Utilizing concurrent real time ultrasound guidance, a 19 gauge Yueh needle with 5 Bengali sheath was advanced into the abdomen and m id axillary line right upper quadrant. After the return of fluid, the catheter was advanced and the n eedle was removed. Approximately 6.8 liters of clear straw color fluid was aspirated. Patient was ad ministered 50 mg of albumin intravenously during the exam as requested. After the needle was removed, hemostasis was achieved with direct pressure and dry sterile dressing was placed. IMPRESSION: Technically successful ultrasound guided paracentesis. POS: [facility]
== END 2018-07-24 11:50 | disposition home or self-care (01) ==
LOC: ULT 09:29
PROVIDERS: ATTEND Internal Medicine
PROC: 0W9G3ZZ Drainage of Peritoneal Cavity, Percutaneous Approach (ICD-10-PCS; principal; 2018-07-24)
DX: K70.31 Alcoholic cirrhosis of liver with ascites (principal)
CPT/HCPCS: 49083; 85025; 85610; 85730; P9047; 36415; J2001

== ENCOUNTER 2018-07-31 10:11 | Day surgery (SDC) | payer MEDICARE, BC ==
[2018-07-31] MEDS ORDERED: Albumin 25% 200 ML ONE (12:25)
[2018-07-31 13:21] VITALS: BMI 26.2
[2018-07-31 13:32] VITALS: BP 124/68; TEMP 97.9
--- NOTE | 2018-07-31 15:48 | ULT ---
ULTRASOUND GUIDED PARACENTESIS: INDICATION: Ascites. TECHNIQUE: Informed consent was obtained. Preprocedure ultrasound was performed. A site overlying the right lo wer quadrant was prepped and draped in the usual sterile fashion. Buffered 1% Lidocaine was administ ered to the overlying subcutaneous tissues. Under ultrasound guidance, a 5 Spanish Yueh catheter was guided down into the largest collection in the right lower quadrant. 8.3 liters of normal-appearing peritoneal fluid was removed. The patient tolerated the procedure without difficulty. No significan t residual was noted. IMPRESSION: Successful ultrasound-guided paracentesis removal of 8.3 liters of normal-appearing peritoneal fluid. POS: [facility]
== END 2018-07-31 12:20 | disposition home or self-care (01) ==
LOC: ULT 10:11
PROVIDERS: ATTEND Internal Medicine
PROC: 0W9G3ZZ Drainage of Peritoneal Cavity, Percutaneous Approach (ICD-10-PCS; principal; 2018-07-31)
DX: K70.31 Alcoholic cirrhosis of liver with ascites (principal)
CPT/HCPCS: 49083; P9047

== ENCOUNTER 2018-08-06 10:07 | Day surgery (SDC) | payer MEDICARE, BC ==
[2018-08-05 10:03] VITALS: BMI 26.2
[2018-08-06] MEDS ORDERED: Sodium Bicarbonate 2.5 MEQ/5 ML VIAL ONE (10:26)
[2018-08-06] MEDS ORDERED: Lidocaine 1% PF 5 ML VIAL ONE (10:26)
[2018-08-06 11:54] VITALS: BP 136/76; TEMP 98
--- NOTE | 2018-08-06 13:44 | ULT ---
SONOGRAPHIC GUIDED PARACENTESIS: HISTORY: Recurrent ascites. FINDINGS: After explaining the procedure and answering all questions, sonographic survey shows a large amount o f free fluid throughout the abdomen. Sterile technique, buffered local anesthesia, sonographic raisa nce, and a lateral right lower quadrant approach were used to carefully advance a 19-gauge Yueh needl e and catheter into the free fluid. The catheter was left to drain a total volume of 7.2 liter cloud y yellow liquid. The catheter was removed. Minimal fluid remained. The patient tolerated the proce dure well and was dismissed in good condition. IMPRESSION: Technically successful sonographic-guided paracentesis. POS: [facility]
== END 2018-08-06 11:36 | disposition home or self-care (01) ==
LOC: ULT 10:07
PROVIDERS: ATTEND Internal Medicine
PROC: 0W9G3ZZ Drainage of Peritoneal Cavity, Percutaneous Approach (ICD-10-PCS; principal; 2018-08-06)
DX: K70.31 Alcoholic cirrhosis of liver with ascites (principal); Z91.041 Radiographic dye allergy status; Z88.5 Allergy status to narcotic agent
CPT/HCPCS: 49083; J2001

== ENCOUNTER 2018-08-14 10:45 | Day surgery (SDC) | payer MEDICARE, BC ==
[2018-08-13 08:47] VITALS: BMI 26.2
[2018-08-14] MEDS ORDERED: Lidocaine 1% PF 5 ML VIAL ONE (11:06)
[2018-08-14] MEDS ORDERED: Sodium Bicarbonate 2.5 MEQ/5 ML VIAL ONE (11:06)
[2018-08-14] MEDS ORDERED: Sodium Chloride 0.9% 10 ML ONE (11:06)
--- NOTE | 2018-08-14 14:42 | ULT ---
ULTRASOUND GUIDED PARACENTESIS: Date: 08/14/18 HISTORY: Recurrent ascites. FINDINGS: After informed consent was obtained, the right lower quadrant was prepped and draped in the normal st erile fashion. Local anesthesia was obtained with 1% Xylocaine mixed with sodium bicarb. A small skin incision was made with a #11 scalpel blade. A 6 Dominican Yueh catheter was introduced under ultrasound guidance. 7.75 liters of typical straw-colored ascites were obtained. The patient tolerated the proc edure well. There were no immediate complications. IMPRESSION: Ultrasound guided paracentesis of 7.75 liters of fluid. No immediate complications of the procedure. POS: [facility]
== END 2018-08-14 12:30 | disposition home or self-care (01) ==
LOC: ULT 10:45
PROVIDERS: ATTEND Internal Medicine
PROC: 0W9G3ZZ Drainage of Peritoneal Cavity, Percutaneous Approach (ICD-10-PCS; principal; 2018-08-14)
DX: K70.31 Alcoholic cirrhosis of liver with ascites (principal)
CPT/HCPCS: 49083; J2001

== ENCOUNTER 2018-08-21 10:26 | Day surgery (SDC) | payer MEDICARE, BC ==
[2018-08-20 15:11] VITALS: BMI 26.2
[2018-08-21] MEDS ORDERED: Albumin 25% 200 ML ONE (10:43)
[2018-08-21] MEDS ORDERED: Sodium Bicarbonate 2.5 MEQ/5 ML VIAL ONE (10:43)
[2018-08-21 12:35] VITALS: BP 119/67; TEMP 98.4
--- NOTE | 2018-08-21 14:05 | ULT ---
ULTRASOUND GUIDED PARACENTESIS: Date: 08/21/18 COMPARISON: 08/14/18. HISTORY: Ascites. FINDINGS: Successful ultrasound guided paracentesis. A total of 8 liters of yellow-colored ascites was aspirate d. The patient tolerated the procedure well. No immediate or postprocedure complication. TECHNIQUE: Consent obtained to perform an ultrasound guided paracentesis. Right lower quadrant was deemed approp riate. Skin was prepped and draped in the sterile fashion. 1% lidocaine, buffered with sodium bicarbo lety, was used for local anesthesia. Under sonographic guidance, a 7 cm 5 Khmer OMGPOP catheter was ad vanced into the peritoneal space. Via a short tubing catheter, a total of 8 liters of yellow-colored ascites was aspirated. The patient tolerated the procedure well. No immediate or postprocedural comp lication. IMPRESSION: Successful ultrasound guided paracentesis. POS: [facility]
== END 2018-08-21 12:10 | disposition home or self-care (01) ==
LOC: ULT 10:26
PROVIDERS: ATTEND Internal Medicine
PROC: 0W9G3ZZ Drainage of Peritoneal Cavity, Percutaneous Approach (ICD-10-PCS; principal; 2018-08-21)
DX: R18.8 Other ascites (principal); K70.30 Alcoholic cirrhosis of liver without ascites
CPT/HCPCS: 49083; P9047

== ENCOUNTER 2018-08-28 10:17 | Day surgery (SDC) | payer MEDICARE, BC ==
[2018-08-27 09:08] VITALS: BMI 26.2
[2018-08-28 10:37] LABS: #Lymphocytes 0.4 thou/uL (1.20-3.40); #Monocytes 0.8 thou/uL (0.11-0.59); #Neutrophils 8.7 thou/uL (1.40-6.50); %Eosinophils 0.1 % (0.0-10.0); %Lymphocytes 3.7 % (21.0-51.0); %Monocytes 8.3 % (0.0-10.0); %Neutrophils 87.9 % (42.0-75.0); Hemoglobin 11.8 g/dL (14.0-18.0); Mean Corpuscular HGB CONC 32.9 g/dL (32.0-36.0); Mean Corpuscular Hemoglobin 27.2 pg (27.0-31.0); Mean Corpuscular Volume 82.6 fL (78.0-98.0); Mean Platelet Volume 9.4 fL (7.4-10.4); Platelet Count 104 thou/uL (130-400); RBC Distribution Width 15.8 % (11.5-14.5); Red Blood Cell (RBC) Count 4.32 mill/uL (4.70-6.10); White Blood Cell (WBC) Count 9.9 thou/uL (4.8-10.8)
[2018-08-28 10:40] LABS: INR-International Normal Ratio 1.3; Prothrombin Time 16.4 SEC (12.0-14.7)
[2018-08-28 10:41] LABS: PTT 38.7 SEC (22.9-36.1)
[2018-08-28] MEDS ORDERED: Albumin 25% 200 ML ONE (11:02)
[2018-08-28] MEDS ORDERED: Sodium Bicarbonate 2.5 MEQ/5 ML VIAL ONE (11:02)
--- NOTE | 2018-08-28 12:58 | ULT ---
SONOGRAPHIC GUIDED PARACENTESIS: HISTORY: Recurrent ascites. FINDINGS: After explaining the procedure and answering all questions, sonographic survey shows a large amount o f free fluid throughout the abdomen. Sterile technique, buffered local anesthesia, sonographic raisa nce, and a right lateral approach were used to carefully advance a 19 gauge Yueh needle and catheter into the free fluid. Catheter was left to drain a total volume of 7.9 liters dark yellow liquid. Th e catheter was removed with minimal fluid remaining. The patient tolerated the procedure well and wa s dismissed in good condition. IMPRESSION: Technically successful sonographic-guided paracentesis. POS: [facility]
[2018-08-28 13:00] VITALS: BP 139/84; TEMP 97.9
== END 2018-08-28 12:10 | disposition home or self-care (01) ==
LOC: ULT 10:17
PROVIDERS: ATTEND Internal Medicine
PROC: 0W9G3ZZ Drainage of Peritoneal Cavity, Percutaneous Approach (ICD-10-PCS; principal; 2018-08-28)
DX: K70.31 Alcoholic cirrhosis of liver with ascites (principal); F17.200 Nicotine dependence, unspecified, uncomplicated; Z79.899 Other long term (current) drug therapy; Z88.5 Allergy status to narcotic agent; Z91.041 Radiographic dye allergy status
CPT/HCPCS: 49083; 85025; 85610; 85730; P9047; 36415

== ENCOUNTER 2018-09-05 09:42 | Day surgery (SDC) | payer MEDICARE, BC ==
[2018-09-03 10:54] VITALS: BMI 26.2
[2018-09-05] MEDS ORDERED: Albumin 25% 200 ML ONE (09:47)
[2018-09-05] MEDS ORDERED: Sodium Bicarbonate 2.5 MEQ/5 ML VIAL ONE (09:47)
[2018-09-05 12:32] VITALS: BP 121/72; TEMP 97.9
--- NOTE | 2018-09-05 13:17 | ULT ---
ULTRASOUND GUIDED PARACENTESIS: HISTORY: Ascites. COMPARISON: 08/28/2018 TECHNIQUE: Consent obtained to perform an ultrasound guided paracentesis. The patient's abdomen was evaluated. The right lower quadrant was deemed appropriate. The skin was prepped and draped in a sterile fashi on. Lidocaine 1% buffered with sodium bicarbonate was used for local anesthesia. Under ultrasound g uidance, a 5 Czech Yueh catheter was advanced into the peritoneal space. Via vacuum bottles, a tota l of 10 L of yellow-colored ascites was aspirated. The patient tolerated the procedure well. No imm ediate or post procedure complications. FINDINGS: Technically successful ultrasound-guided paracentesis. A total of 10 L of yellow-colored ascites was aspirated. The patient tolerated the procedure well. No immediate or post procedure complications. IMPRESSION: Successful ultrasound-guided paracentesis. POS: [facility]
== END 2018-09-05 11:38 | disposition home or self-care (01) ==
LOC: ULT 09:42
PROVIDERS: ATTEND Radiology Diagnostic Radiology
PROC: 0W9G3ZZ Drainage of Peritoneal Cavity, Percutaneous Approach (ICD-10-PCS; principal; 2018-09-05)
DX: R18.8 Other ascites (principal); Z79.899 Other long term (current) drug therapy; Z88.5 Allergy status to narcotic agent; Z91.041 Radiographic dye allergy status
CPT/HCPCS: 49083; P9047

== ENCOUNTER 2018-09-11 10:14 | Day surgery (SDC) | payer MEDICARE, BC ==
[2018-09-11] MEDS ORDERED: Sodium Bicarbonate 2.5 MEQ/5 ML VIAL ONE (10:26)
[2018-09-11] MEDS ORDERED: Albumin 25% 200 ML ONE (10:26)
[2018-09-11 12:12] VITALS: BP 142/81; TEMP 98.1
--- NOTE | 2018-09-11 12:46 | ULT ---
SONOGRAPHIC GUIDED PARACENTESIS: HISTORY: Recurrent ascites. FINDINGS: After explaining the procedure and answering all questions, sonographic survey shows a large amount o f free fluid. Sterile technique, buffered local anesthesia, sonographic guidance, and a right lower quadrant lateral approach was used to carefully advance a 19 gauge Yueh needle and catheter into the free fluid. The catheter was left to drain a total volume of 9 L of slightly cloudy yellow liquid. Minimal fluid remained. The catheter was removed. The patient tolerated the procedure well and was dismissed in good condition. IMPRESSION: Technically successful sonographic guided paracentesis. POS: [facility]
== END 2018-09-11 12:00 | disposition home or self-care (01) ==
LOC: ULT 10:14
PROVIDERS: ATTEND Internal Medicine
PROC: 0W9G3ZZ Drainage of Peritoneal Cavity, Percutaneous Approach (ICD-10-PCS; principal; 2018-09-11)
PROC: BW40ZZZ Ultrasonography of Abdomen (ICD-10-PCS; 2018-09-11)
DX: K70.31 Alcoholic cirrhosis of liver with ascites (principal)
CPT/HCPCS: 49083; P9047

== ENCOUNTER 2018-09-18 11:04 | Day surgery (SDC) | payer MEDICARE, BC ==
[2018-09-18] MEDS ORDERED: Sodium Bicarbonate 2.5 MEQ/5 ML VIAL ONE (11:17)
[2018-09-18] MEDS ORDERED: Albumin 25% 100 ML ONE ×2 (11:17→11:36)
--- NOTE | 2018-09-18 14:29 | ULT ---
ULTRASOUND GUIDED PARACENTESIS: Date: 09-18-18 History: Cirrhosis and ascites. Technique: After informed consent was obtained, patient was placed on the angiography table in the supine positi on. Limited sonographic evaluation of the abdomen was performed. An area in the mid axillary line rig ht mid abdomen marked and the area of meticulously prepped and draped in usual sterile fashion. Skin and subcutaneous tissues were infiltrated with buffered 1% Lidocaine for local anesthesia. Small skin incision was made. Utilizing concurrent real-time ultrasound guidance a 19 gauge HipGeo needle wi th 5 English sheath was advanced into the abdomen. After return of fluid, the catheter was advanced an d the needle was removed. Approximately 9 L of cloudy, straw colored fluid was aspirated. Catheter wa s removed and hemostatis was achieved with direct pressure. Dry sterile dressing was placed. Follow u p sonographic imaging demonstrates only a tiny amount of remaining free fluid within the right abdome n. IMPRESSION: Technically successful ultrasound guided paracentesis. POS: [facility]
[2018-09-18 14:47] VITALS: BP 114/79; TEMP 98.1
== END 2018-09-18 12:50 | disposition home or self-care (01) ==
LOC: ULT 11:04
PROVIDERS: ATTEND Internal Medicine
PROC: 0W9G3ZZ Drainage of Peritoneal Cavity, Percutaneous Approach (ICD-10-PCS; principal; 2018-09-18)
DX: K70.31 Alcoholic cirrhosis of liver with ascites (principal); Z91.041 Radiographic dye allergy status
CPT/HCPCS: 49083; P9047

== ENCOUNTER 2018-09-25 10:21 | Day surgery (SDC) | payer MEDICARE, BC ==
[2018-09-24 12:28] VITALS: BMI 26.2
[2018-09-25] MEDS ORDERED: Lidocaine 1% PF 5 ML VIAL ONE (11:19)
[2018-09-25] MEDS ORDERED: Sodium Bicarbonate 2.5 MEQ/5 ML VIAL ONE (11:19)
[2018-09-25 14:17] VITALS: BP 126/68; TEMP 98
--- NOTE | 2018-09-25 14:27 | ULT ---
ULTRASOUND GUIDED PARACENTESIS: INDICATION: Ascites. TECHNIQUE: Informed consent was obtained. Preprocedural ultrasound images were performed. A site overlying the right lower quadrant was prepped and draped in the usual sterile fashion. The site overlying the ri t lower quadrant was anesthetized utilizing buffered 1% Lidocaine. Under ultrasound guidance, a 5 Croatian Loaded Pocketeh catheter was guided down into the collection in the right lower quadrant. There was kate alannah of 8900 cc of normal-appearing peritoneal fluid. The patient tolerated the procedure without dif ficulty. IMPRESSION: Successful ultrasound-guided paracentesis with removal of 8900 cc of normal-appearing peritoneal flui d. POS: [facility]
== END 2018-09-25 13:05 | disposition home or self-care (01) ==
LOC: ULT 10:21
PROVIDERS: ATTEND Internal Medicine
PROC: 0W9G3ZZ Drainage of Peritoneal Cavity, Percutaneous Approach (ICD-10-PCS; principal; 2018-09-25)
DX: R18.8 Other ascites (principal); Z88.5 Allergy status to narcotic agent; Z91.048 Other nonmedicinal substance allergy status
CPT/HCPCS: 49083; P9047; J2001

== ENCOUNTER 2018-10-02 10:14 | Day surgery (SDC) | payer MEDICARE, BC ==
[2018-10-02] MEDS ORDERED: Sodium Bicarbonate 2.5 MEQ/5 ML VIAL ONE (10:43)
[2018-10-02 13:53] VITALS: BP 109/64; TEMP 98.2; BMI 25.1
--- NOTE | 2018-10-02 13:59 | ULT ---
SONOGRAPHIC GUIDED PARACENTESIS: History: Recurrent ascites. FINDINGS: After explaining the procedure and answering all questions, sonographic survey shows a large amount o f free fluid. Sterile technique, buffered local anesthesia, sonographic guidance and a right lateral approach were used to carefully advance a 19 gauge Yueh needle and catheter into the free fluid. Cath eter was left to drain a total volume of 9.0 L cloudy yellow liquid. Catheter was removed. A small am ount of free fluid remains. Patient tolerated the procedure well and was dismissed in good condition. IMPRESSION: Technically successful sonographic guided paracentesis. POS: [facility]
== END 2018-10-02 12:20 | disposition home or self-care (01) ==
LOC: ULT 10:14
PROVIDERS: ATTEND Family Medicine
PROC: 0W9G3ZZ Drainage of Peritoneal Cavity, Percutaneous Approach (ICD-10-PCS; principal; 2018-10-02)
DX: K70.31 Alcoholic cirrhosis of liver with ascites (principal); F17.200 Nicotine dependence, unspecified, uncomplicated; K40.90 Unilateral inguinal hernia, without obstruction or gangrene, not specified as recurrent; E78.00 Pure hypercholesterolemia, unspecified; I10 Essential (primary) hypertension; Z79.899 Other long term (current) drug therapy; Z88.5 Allergy status to narcotic agent; Z91.041 Radiographic dye allergy status
CPT/HCPCS: 49083; P9047

== ENCOUNTER 2018-10-14 10:37 | Day surgery (SDC) | payer MEDICARE, BC ==
[2018-10-14] MEDS ORDERED: Sodium Bicarbonate 2.5 MEQ/5 ML VIAL ONE (10:39)
[2018-10-14] MEDS ORDERED: Lidocaine 1% PF 5 ML VIAL ONE (11:06)
[2018-10-14 12:14] VITALS: BMI 25.8
[2018-10-14 12:16] VITALS: BP 129/83; TEMP 97.8
--- NOTE | 2018-10-14 13:39 | ULT ---
ULTRASOUND GUIDED PARACENTESIS: Date: 10/14/18 HISTORY: Cirrhosis and refractory large volume ascites. TECHNIQUE: The procedure, including risks and complications, were explained to the patient and informed consent was obtained. The patient was placed on the sonography table in the supine position. An area in the m id axillary line right upper quadrant was marked and the area was meticulously prepped and draped in the usual sterile fashion. Skin and subcutaneous tissues were infiltrated with buffered 1% lidocaine for local anesthesia at the intended puncture site. A small skin incision was made. Utilizing [facility] ent real-time ultrasound guidance, a 19 gauge Yueh needle with 5 Sami sheath was advanced into the abdomen utilizing concurrent real-time ultrasound guidance. A total of 5 liters of cloudy, yellow-col ored fluid was aspirated. The patient was administered albumin during the exam intravenously as reque sted. After 5 liters of fluid was aspirated, the introducer sheath was removed, and hemostasis was achieved with direct pressure. Follow-up imaging demonstrated a large amount of intraperitoneal free fluid wi thin the abdomen, only 5 liters of fluid was requested to be withdrawn. The patient tolerated the procedure well and without immediate complication. The patient was briefly monitored in the radiology nurse's holding area prior to discharge. IMPRESSION: Technically successful ultrasound guided paracentesis. POS: [facility]
== END 2018-10-14 11:40 | disposition home or self-care (01) ==
LOC: ULT 10:37
PROVIDERS: ATTEND Internal Medicine
PROC: 0W9G3ZZ Drainage of Peritoneal Cavity, Percutaneous Approach (ICD-10-PCS; principal; 2018-10-14)
DX: K70.31 Alcoholic cirrhosis of liver with ascites (principal); K40.90 Unilateral inguinal hernia, without obstruction or gangrene, not specified as recurrent; E78.00 Pure hypercholesterolemia, unspecified; F17.200 Nicotine dependence, unspecified, uncomplicated; I10 Essential (primary) hypertension; Z79.899 Other long term (current) drug therapy; Z88.5 Allergy status to narcotic agent; Z91.041 Radiographic dye allergy status
CPT/HCPCS: 49083; P9047; J2001

== ENCOUNTER 2018-10-23 10:22 | Day surgery (SDC) | payer MEDICARE, BC ==
[2018-10-22 10:56] VITALS: BMI 26.9
[2018-10-23] MEDS ORDERED: Albumin 25% 200 ML ONE (12:17)
[2018-10-23 13:28] VITALS: BP 130/81; TEMP 98.6
--- NOTE | 2018-10-23 13:56 | ULT ---
ULTRASOUND GUIDED PARACENTESIS: COMPARISON: 10/14/2018. HISTORY: Ascites. FINDINGS: Successful ultrasound-guided paracentesis. A total of 5 liters of yellow-colored ascites was aspirat ed. There are no immediate or postprocedure complications. TECHNIQUE: Consent was obtained to perform an ultrasound-guided paracentesis. The patient's abdomen was evaluat ed. Right lower quadrant was deemed appropriate. The skin was prepped and draped in sterile fashion . 1% Lidocaine, buffered with sodium bicarbonate, was used for local anesthesia. Under ultrasound gu idance, a 5 Portuguese Yueh catheter was advanced into the peritoneal space. A total of 5 liters of yell ow-colored ascites was aspirated. There are no immediate or postprocedure complications. There is s till ascites present. Additional volume was not removed as per the ordering doctor's request. IMPRESSION: Successful ultrasound-guided paracentesis. POS: [facility]
[2018-10-23 14:25] LABS: BF Color Yellow; BF RBC Count - Manual 4 /cumm; BF WBC/Nonhematics Ct. - Manua 29 /cumm; Body Fluid Source Ascites Body Fluid; Clarity Hazy (Clear); Tube # EDTA
[2018-10-23 14:52] LABS: Cell Count Non Hematic 81 %; Lymphocytes 19 %
== END 2018-10-23 12:00 | disposition home or self-care (01) ==
LOC: ULT 10:22
PROVIDERS: ATTEND Internal Medicine
PROC: 0W9G3ZX Drainage of Peritoneal Cavity, Percutaneous Approach, Diagnostic (ICD-10-PCS; principal; 2018-10-23)
DX: K70.31 Alcoholic cirrhosis of liver with ascites (principal); E78.00 Pure hypercholesterolemia, unspecified; I10 Essential (primary) hypertension; F17.200 Nicotine dependence, unspecified, uncomplicated; Z79.899 Other long term (current) drug therapy; Z88.5 Allergy status to narcotic agent; Z91.041 Radiographic dye allergy status
CPT/HCPCS: 49083; 84157; 87070; 87205; 89051; P9047; 85060

== ENCOUNTER 2018-10-30 10:25 | Day surgery (SDC) | payer MEDICARE, BC ==
[2018-10-29 12:34] VITALS: BMI 26.9
[2018-10-30] MEDS ORDERED: Sodium Bicarbonate 2.5 MEQ/5 ML VIAL ONE (10:31)
[2018-10-30] MEDS ORDERED: Lidocaine 1% PF 5 ML VIAL ONE (10:31)
--- NOTE | 2018-10-30 14:18 | ULT ---
ULTRASOUND GUIDED PARACENTESIS: DATE: 10/30/2018. HISTORY: Cirrhosis and refractory ascites. TECHNIQUE: The procedure including the risks and complications were explained to the patient and informed consen t was obtained. The patient was placed on the sonography table in the supine position. Limited sono graphic evaluation of the abdomen was performed. An area in the mid axillary line right upper quadra nt was marked, and the area was then meticulously prepped and draped in the usual sterile fashion. The skin and subcutaneous tissues were infiltrated with buffered 1% Lidocaine for local anesthesia at the intended puncture site. A small skin incision was made. Utilizing concurrent real-time ultrasound guidance, a 19-gauge needle Uni-Power Groupeh needle with a 5 Guinean she ath was advanced into the abdomen. After the return of fluid, the catheter advanced, and the needle was removed. Approximately 5 liters of cloudy yellow fluid was aspirated. The patient was administe red 62.5 gm of albumin during the exam as requested. The patient tolerated the procedure well and without immediate complication. The patient was briefly monitored in the radiology nurse's holding area prior to discharge. IMPRESSION: Technically successful ultrasound-guided paracentesis with 5 liters of fluid aspirated as requested. A large amount of intraperitoneal free fluid persists after paracentesis. POS: [facility]
[2018-10-30 15:32] VITALS: BP 137/71; TEMP 97.8
== END 2018-10-30 11:50 | disposition home or self-care (01) ==
LOC: ULT 10:25
PROVIDERS: ATTEND Internal Medicine
PROC: 0W9G3ZZ Drainage of Peritoneal Cavity, Percutaneous Approach (ICD-10-PCS; principal; 2018-10-30)
DX: K70.31 Alcoholic cirrhosis of liver with ascites (principal); M10.9 Gout, unspecified; K21.9 Gastro-esophageal reflux disease without esophagitis; I10 Essential (primary) hypertension; F17.200 Nicotine dependence, unspecified, uncomplicated; Z79.899 Other long term (current) drug therapy; Z88.5 Allergy status to narcotic agent; Z91.041 Radiographic dye allergy status
CPT/HCPCS: 49083; P9047; 51102; 77002; C2627; J2001

== ENCOUNTER 2018-11-05 13:08 | Day surgery (SDC) | payer MEDICARE, BC ==
[2018-11-05 15:02] VITALS: BMI 29.8
[2018-11-05] MEDS ORDERED: Lidocaine 1% PF 5 ML VIAL ONE (15:05)
[2018-11-05] MEDS ORDERED: Sodium Bicarbonate 2.5 MEQ/5 ML VIAL ONE (15:05)
[2018-11-05 15:16] VITALS: BP 130/76; TEMP 97.5
--- NOTE | 2018-11-05 16:11 | ULT ---
ULTRASOUND GUIDED PARACENTESIS: 11/05/18 COMPARISON: 10/30/18. HISTORY: Ascites. FINDINGS: Successful ultrasound guided paracentesis. A total of five liters of yellow colored ascites was aspir ated. No immediate or postprocedure complication. TECHNIQUE: Consent obtained to perform an ultrasound guided paracentesis. Right lower quadrant is deemed appropr iate. The skin was prepped and draped in the sterile fashion. 1% lidocaine, buffered with sodium bica rbonate used for local anesthesia. Under ultrasound guidance, a 7 cm 5 Mosotho Sovicelleh catheter was advan ricco into the peritoneal space. Total of 5 liters of yellow colored ascites was aspirated. The patien t tolerated the procedure well. No immediate or postprocedure complications. IMPRESSION: Successful ultrasound guided paracentesis. POS: [facility]
[2018-11-05 16:15] LABS: BF Color Yellow; BF RBC Count - Manual 9 /cumm; BF WBC/Nonhematics Ct. - Manua 36 /cumm; Body Fluid Source Ascites Body Fluid; Clarity Hazy (Clear); Tube # EDTA
[2018-11-05 16:16] LABS: BF Segmented Neutrophils 1 %; Cell Count Non Hematic 91 %; Lymphocytes 8 %
== END 2018-11-05 14:55 | disposition home or self-care (01) ==
LOC: ULT 13:08
PROVIDERS: ATTEND Internal Medicine
PROC: 0W9G3ZZ Drainage of Peritoneal Cavity, Percutaneous Approach (ICD-10-PCS; principal; 2018-11-05)
DX: K70.31 Alcoholic cirrhosis of liver with ascites (principal); K21.9 Gastro-esophageal reflux disease without esophagitis; I10 Essential (primary) hypertension; M10.9 Gout, unspecified; F17.210 Nicotine dependence, cigarettes, uncomplicated; Z79.899 Other long term (current) drug therapy; Z88.5 Allergy status to narcotic agent; Z91.041 Radiographic dye allergy status
CPT/HCPCS: 49083; 84157; 87070; 87205; 89051; P9047; 85060; J2001

== ENCOUNTER 2018-11-20 10:56 | Day surgery (SDC) | payer MEDICARE, BC ==
[2018-11-19 13:26] VITALS: BMI 26.9
[2018-11-20] MEDS ORDERED: Sodium Bicarbonate 2.5 MEQ/5 ML VIAL ONE (11:13)
[2018-11-20] MEDS ORDERED: Albumin 25% 200 ML ONE (11:13)
[2018-11-20 13:36] VITALS: BP 124/62; TEMP 97.7
[2018-11-20 13:41] LABS: Body Fluid Source Ascites Body Fluid
[2018-11-20 13:42] LABS: BF Color Yellow; BF RBC Count - Manual 894 /cumm; BF WBC/Nonhematics Ct. - Manua 53 /cumm; Clarity Hazy (Clear); Tube # EDTA
[2018-11-20 13:56] LABS: BF Segmented Neutrophils 4 %; Cell Count Non Hematic 78 %; Lymphocytes 18 %
--- NOTE | 2018-11-20 14:16 | ULT ---
ULTRASOUND GUIDED PARACENTESIS: Date: 11-20-18 History: Ascites. Technique: Multiple longitudinal and transverse images of the abdomen obtained. FINDINGS: A large amount of ascites was noted. The right upper quadrant was localized using ultrasound guidance . The overlying skin was prepped and draped in the usual sterile manner. A 1% Lidocaine solution was used to anesthetize the overlying soft tissues. A small dermatotomy was made. A Lao Yueh needle wa s placed into the peritoneal cavity. A total of 4 L of peritoneal fluid was removed without difficult y. IMPRESSION: Successful ultrasound guided paracentesis. POS: [facility]
== END 2018-11-20 12:35 | disposition home or self-care (01) ==
LOC: ULT 10:56
PROVIDERS: ATTEND Internal Medicine
PROC: 0W9G3ZZ Drainage of Peritoneal Cavity, Percutaneous Approach (ICD-10-PCS; principal; 2018-11-20)
DX: K74.60 Unspecified cirrhosis of liver (principal); R18.8 Other ascites; I10 Essential (primary) hypertension; F10.10 Alcohol abuse, uncomplicated; K21.9 Gastro-esophageal reflux disease without esophagitis; E78.00 Pure hypercholesterolemia, unspecified; F17.200 Nicotine dependence, unspecified, uncomplicated; Z88.5 Allergy status to narcotic agent; Z91.041 Radiographic dye allergy status; Z79.82 Long term (current) use of aspirin
CPT/HCPCS: 49083; 84155; 87070; 87205; 89051; P9047; 85060

== ENCOUNTER 2018-11-27 10:17 | Day surgery (SDC) | payer MEDICARE, BC ==
[2018-11-26 12:09] VITALS: BMI 27.1
[2018-11-27] MEDS ORDERED: Albumin 25% 200 ML ONE (13:16)
[2018-11-27] MEDS ORDERED: Sodium Bicarbonate 2.5 MEQ/5 ML VIAL ONE (13:16)
[2018-11-27] MEDS ORDERED: Lidocaine 1% PF 5 ML VIAL ONE (13:16)
[2018-11-27 13:38] VITALS: BP 124/66; TEMP 98.4
--- NOTE | 2018-11-27 13:48 | ULT ---
ULTRASOUND-GUIDED PARACENTESIS: CLINICAL INDICATION: Ascites. PROCEDURE: After informed consent had been obtained, the patient was escorted to the ultrasound suite and placed in a supine position. The abdomen was imaged which revealed adequate ascites for the procedure. Th e skin of the abdomen was then prepped and draped in the standard sterile fashion and the skin surfac e, subcutaneous tissues, and peritoneal lining of the abdomen were anesthetized with 1% Lidocaine buf fered with sodium bicarbonate. A right lower quadrant approach was selected. A small skin incision was made at the site of topical anesthesia. Subsequently, under real-time ultrasound guidance a OOTU catheter was advanced through the incision site into the peritoneal cavity. Ascites was present at the catheter hub. The catheter was then secured to vacuum sealed sterile containers, via sterile tub ing and subsequently 4 L of clear yellow ascites was drained from the patient. The patient was then removed from the patient. The patient tolerated the procedure well without evidence of complication. Postprocedure imaging revealed no complication and interval reduction in volume of ascites. The pa tient was monitored by a radiology nurse and was stable in condition. IMPRESSION: Technically successful ultrasound-guided paracentesis, as above. POS: [facility]
[2018-11-27 14:03] LABS: BF Color Yellow; Body Fluid Source Peritoneal Fluid; Clarity Hazy (Clear); RBC Background Count 0.006; Tube # EDTA; WBC Background Count 0.01; WBC/NonHematic-Auto 211 /cumm
[2018-11-27 14:04] LABS: BF RBC Count - Manual 218 /cumm
[2018-11-27 15:02] LABS: Cell Count Non Hematic 94 %; Lymphocytes 6 %
== END 2018-11-27 12:15 | disposition home or self-care (01) ==
LOC: ULT 10:17
PROVIDERS: ATTEND Internal Medicine
PROC: 0W9G3ZZ Drainage of Peritoneal Cavity, Percutaneous Approach (ICD-10-PCS; principal; 2018-11-27)
DX: K70.31 Alcoholic cirrhosis of liver with ascites (principal); K21.9 Gastro-esophageal reflux disease without esophagitis; E78.00 Pure hypercholesterolemia, unspecified; I10 Essential (primary) hypertension; F10.10 Alcohol abuse, uncomplicated; F17.210 Nicotine dependence, cigarettes, uncomplicated; M10.9 Gout, unspecified; Z79.899 Other long term (current) drug therapy; Z88.5 Allergy status to narcotic agent; Z91.041 Radiographic dye allergy status
CPT/HCPCS: 49083; 84157; 87070; 87205; 89051; P9047; 85060; J2001

== ENCOUNTER 2018-12-04 10:47 | Day surgery (SDC) | payer MEDICARE, BC ==
[2018-12-03 13:59] VITALS: BMI 26.9
[2018-12-04] MEDS ORDERED: Sodium Bicarbonate 2.5 MEQ/5 ML VIAL ONE (10:56)
[2018-12-04] MEDS ORDERED: Albumin 25% 200 ML ONE (10:56)
[2018-12-04 11:15] LABS: INR-International Normal Ratio 1.4; PTT 38.7 SEC (22.9-36.1); Prothrombin Time 17.7 SEC (12.0-14.7)
[2018-12-04] MEDS ORDERED: Albumin 25% 100 ML ONE (12:02)
--- NOTE | 2018-12-04 14:16 | ULT ---
SONOGRAPHIC GUIDED PARACENTESIS: HISTORY: Recurrent ascites. FINDINGS: After explaining the procedure and answering all questions, a sonographic survey showed a large amoun t of free fluid throughout the abdomen. Sterile technique, buffered local anesthesia, sonographic gu idance, and a right lateral approach were used to carefully advance a 19 gauge Yueh needle and cathet er into the free fluid. The catheter was left to drain a total volume of 5 L of dark yellow cloudy l iquid. The catheter was removed with a moderate to large amount of fluid remaining. The patient farrah erated the procedure well and was dismissed in good condition. IMPRESSION: Technically successful sonographic guided paracentesis. POS: [facility]
[2018-12-04 14:56] LABS: BF Color Yellow; Body Fluid Source Peritoneal Fluid; Clarity Hazy (Clear); Tube # EDTA
[2018-12-04 15:09] LABS: BF RBC Count - Manual 54 /cumm; BF WBC/Nonhematics Ct. - Manua 44 /cumm
[2018-12-04 15:14] LABS: BF Segmented Neutrophils 2 %; Cell Count Non Hematic 78 %; Lymphocytes 20 %
== END 2018-12-04 12:35 | disposition home or self-care (01) ==
LOC: ULT 10:47
PROVIDERS: ATTEND Internal Medicine
PROC: 0W9G3ZZ Drainage of Peritoneal Cavity, Percutaneous Approach (ICD-10-PCS; principal; 2018-12-04)
DX: K70.31 Alcoholic cirrhosis of liver with ascites (principal); K72.90 Hepatic failure, unspecified without coma; F17.200 Nicotine dependence, unspecified, uncomplicated; I10 Essential (primary) hypertension; M10.9 Gout, unspecified; F10.10 Alcohol abuse, uncomplicated; Z79.899 Other long term (current) drug therapy; Z88.5 Allergy status to narcotic agent; Z91.041 Radiographic dye allergy status
CPT/HCPCS: 49083; 84157; 85610; 85730; 87070; 87205; 89051; P9047; 84155; 85060

== ENCOUNTER 2018-12-11 10:41 | Day surgery (SDC) | payer MEDICARE, BC ==
[2018-12-11 12:43] VITALS: BP 135/66; TEMP 98.1; BMI 27.9
--- NOTE | 2018-12-11 13:50 | ULT ---
FUltrasound-guided therapeutic paracentesis: 12/11/2018 HISTORY: 68-year-old male with abdominal distention due to ascites. TECHNIQUE: Signed informed consent obtained. Four-quadrant ultrasound survey of the abdominal cavity. Right lowe r quadrant selected. Overlying skin prepared and draped in usual sterile fashion. 25-gauge needle use d to apply buffered lidocaine. A 5 North Korean Yueh catheter advanced into right lower quadrant pocket of free fluid. Stylette removed. 5 North Korean Yueh catheter connected to a series of evacuated bottles via p lastic tubing. After drainage, catheter was removed. Patient tolerated the procedure well. No complic ations. FINDINGS: Prior to the procedure, images demonstrated large volume of free fluid. A total of 5000 mL of nonhemo rrhagic ascites fluid was drained. 5 L is the maximum allowed drainage for this patient. Post procedu re image of right lower quadrant was taken by the hand filer balance wheel, but was lost due to technical issues. IMPRESSION: Successful therapeutic paracentesis, with drainage of 5 L of ascites fluid, the maximum allowed for t his patient.
[2018-12-11 14:38] LABS: BF Color Yellow; BF RBC Count - Manual 43 /cumm; BF WBC/Nonhematics Ct. - Manua 38 /cumm; Body Fluid Source Ascites Body Fluid; Clarity Hazy (Clear); Tube # EDTA
[2018-12-11 14:40] LABS: Cell Count Non Hematic 85 %; Lymphocytes 15 %
== END 2018-12-11 12:30 | disposition home or self-care (01) ==
LOC: ULT 10:41
PROVIDERS: ATTEND Radiology Neuroradiology
PROC: 0W9G3ZZ Drainage of Peritoneal Cavity, Percutaneous Approach (ICD-10-PCS; principal; 2018-12-11)
DX: K70.31 Alcoholic cirrhosis of liver with ascites (principal); K72.90 Hepatic failure, unspecified without coma; I10 Essential (primary) hypertension; E78.00 Pure hypercholesterolemia, unspecified; M10.9 Gout, unspecified; K21.9 Gastro-esophageal reflux disease without esophagitis; K29.70 Gastritis, unspecified, without bleeding; Z88.5 Allergy status to narcotic agent; Z91.041 Radiographic dye allergy status; Z79.899 Other long term (current) drug therapy; Z98.890 Other specified postprocedural states
CPT/HCPCS: 49083; 84157; 87070; 87205; 89051; P9047; 85060

== ENCOUNTER 2018-12-18 10:37 | Day surgery (SDC) | payer MEDICARE, BC ==
[2018-12-17 09:41] VITALS: BMI 26.6
--- NOTE | 2018-12-18 12:45 | ULT ---
FExam: Ultrasound guided paracentesis HISTORY: Ascites COMPARISON: December 11, 2018 FINDINGS: Successful ultrasound-guided paracentesis. Total of 5 L of normal-appearingascites was aspi rated. TECHNIQUE: Consent obtained reformatory ultrasound-guided paracentesis. Right lower quadrant was deem ed appropriate. Skin was prepped and draped in a sterile fashion. 1% lidocaine, buffered with sodium bicarbonate was used for local anesthesia. Under ultrasound guidance, a 5 [place] Islander 7 cm DropThoughteh catheter i s advanced in the peritoneal space. A total of 5 L of normal-appearingascites was aspirated. No immed iate or postprocedural complications IMPRESSION: Successful ultrasound-guided paracentesis.
[2018-12-18 13:28] LABS: BF Color Yellow; BF RBC Count - Manual 138 /cumm; BF WBC/Nonhematics Ct. - Manua 61 /cumm; Body Fluid Source Ascites Body Fluid; Clarity Hazy (Clear); Tube # EDTA
[2018-12-18 13:34] LABS: BF Segmented Neutrophils 5 %; Cell Count Non Hematic 79 %; Lymphocytes 16 %
[2018-12-18 13:37] VITALS: BP 133/73; TEMP 97.9
== END 2018-12-18 12:25 | disposition home or self-care (01) ==
LOC: ULT 10:37
PROVIDERS: ATTEND Internal Medicine
PROC: 0W9G3ZX Drainage of Peritoneal Cavity, Percutaneous Approach, Diagnostic (ICD-10-PCS; principal; 2018-12-18)
DX: K74.60 Unspecified cirrhosis of liver (principal); R18.8 Other ascites; K21.9 Gastro-esophageal reflux disease without esophagitis; K72.90 Hepatic failure, unspecified without coma; M10.9 Gout, unspecified; I10 Essential (primary) hypertension; E78.00 Pure hypercholesterolemia, unspecified; Z79.899 Other long term (current) drug therapy; Z88.5 Allergy status to narcotic agent; Z91.041 Radiographic dye allergy status
CPT/HCPCS: 49083; 84157; 87070; 87205; 89051; P9047; 85060

== ENCOUNTER 2018-12-25 10:42 | Day surgery (SDC) | payer MEDICARE, BC ==
[2018-12-25] MEDS ORDERED: Lidocaine 1% PF 5 ML VIAL ONE (10:52)
[2018-12-25] MEDS ORDERED: Sodium Bicarbonate 2.5 MEQ/5 ML VIAL ONE (10:52)
[2018-12-25] MEDS ORDERED: Albumin 25% 200 ML ONE (10:52)
--- NOTE | 2018-12-25 13:06 | ULT ---
Ultrasound-guided paracentesis: 12/25/2018 HISTORY: Symptomatic ascites FINDINGS: Informed consent obtained prior to the procedure. Preprocedural imaging demonstrated signif icant ascites throughout the abdomen and pelvis. Right lower quadrant prepped and draped in normal sterile fashion and anesthetized with 1% buffered l idocaine. With direct sonographic guidance, 5 [place] Yueh catheter is advanced into the ascites and removal of the stylet yielded yellow fluid. 5 L were removed. The patient tolerated the procedure well. No postprocedural complications. IMPRESSION: Successful ultrasound-guided paracentesis yielding 5 L of yellow fluid.
[2018-12-25 13:10] VITALS: BP 149/59; TEMP 98.6
[2018-12-25 14:36] LABS: BF Color Yellow; BF RBC Count - Manual 493 /cumm; BF WBC/Nonhematics Ct. - Manua 38 /cumm; Body Fluid Source Ascites Body Fluid; Clarity Hazy (Clear); Tube # EDTA
[2018-12-25 14:38] LABS: Cell Count Non Hematic 100 %
== END 2018-12-25 12:30 | disposition home or self-care (01) ==
LOC: ULT 10:42
PROVIDERS: ATTEND Internal Medicine
PROC: 0W9G3ZX Drainage of Peritoneal Cavity, Percutaneous Approach, Diagnostic (ICD-10-PCS; principal; 2018-12-25)
DX: K74.60 Unspecified cirrhosis of liver (principal); R18.8 Other ascites; I10 Essential (primary) hypertension; E78.00 Pure hypercholesterolemia, unspecified; K72.90 Hepatic failure, unspecified without coma; M10.9 Gout, unspecified; Z79.899 Other long term (current) drug therapy; Z88.5 Allergy status to narcotic agent; Z91.041 Radiographic dye allergy status
CPT/HCPCS: 49083; 84157; 87070; 87205; 89051; P9047; 85060; J2001

== ENCOUNTER 2019-01-01 08:37 | Day surgery (SDC) | payer MEDICARE, BC ==
[2018-12-31 11:56] VITALS: BMI 27.2
[2019-01-01] MEDS ORDERED: Albumin 25% 200 ML ONE (08:54)
[2019-01-01] MEDS ORDERED: Sodium Bicarbonate 2.5 MEQ/5 ML VIAL ONE (08:54)
--- NOTE | 2019-01-01 11:35 | ULT ---
Exam: Ultrasound guided paracentesis HISTORY: Ascites COMPARISON: Prior exam dated December 25, 2018 FINDINGS: Successful ultrasound-guided paracentesis. Total of 5 L of normal-appearingascites was aspi rated. TECHNIQUE: Consent obtained reformatory ultrasound-guided paracentesis. Right lower quadrant was deem ed appropriate. Skin was prepped and draped in a sterile fashion. 1% lidocaine, buffered with sodium bicarbonate was used for local anesthesia. Under ultrasound guidance, a 5 Estonian 7 cm Yueh cat heter is advanced in the peritoneal space. A total of 5 L of normal-appearingascites was aspirated. No immediate or postprocedural complications IMPRESSION: Successful ultrasound-guided paracentesis.
[2019-01-01 11:52] LABS: BF Color Yellow; Body Fluid Source Ascites Body Fluid; Clarity Hazy (Clear); Tube # EDTA
[2019-01-01 12:06] LABS: BF RBC Count - Manual 2050 /cumm; BF WBC/Nonhematics Ct. - Manua 11 /cumm
[2019-01-01 12:34] LABS: BF Segmented Neutrophils 1 %; Cell Count Non Hematic 91 %; Lymphocytes 8 %
[2019-01-01 14:33] VITALS: BP 130/72; TEMP 98.6
== END 2019-01-01 10:20 | disposition home or self-care (01) ==
LOC: ULT 08:37
PROVIDERS: ATTEND Internal Medicine
PROC: 0W9G3ZX Drainage of Peritoneal Cavity, Percutaneous Approach, Diagnostic (ICD-10-PCS; principal; 2019-01-01)
DX: K70.31 Alcoholic cirrhosis of liver with ascites (principal); K72.90 Hepatic failure, unspecified without coma; I10 Essential (primary) hypertension; E78.00 Pure hypercholesterolemia, unspecified; F17.200 Nicotine dependence, unspecified, uncomplicated; K21.9 Gastro-esophageal reflux disease without esophagitis; F10.10 Alcohol abuse, uncomplicated; M10.9 Gout, unspecified; Z79.899 Other long term (current) drug therapy; Z88.5 Allergy status to narcotic agent; Z91.041 Radiographic dye allergy status
CPT/HCPCS: 49083; 84157; 87070; 87205; 89051; 90670; G0009; P9047; 85060; 90471

== ENCOUNTER 2019-01-08 10:43 | Day surgery (SDC) | payer MEDICARE, BC ==
[2019-01-08] MEDS ORDERED: Albumin 25% 200 ML ONE (11:17)
[2019-01-08] MEDS ORDERED: Sodium Bicarbonate 2.5 MEQ/5 ML VIAL ONE (11:17)
[2019-01-08] MEDS ORDERED: Albumin 25% 100 ML ONE (11:36)
[2019-01-08 13:14] VITALS: BP 143/65; TEMP 97.8; BMI 30.4
--- NOTE | 2019-01-08 13:30 | ULT ---
Ultrasound-guided paracentesis: HISTORY: Recurrent ascites post TIPS procedure. FINDINGS: Informed consent obtained prior to the procedure. Preprocedural imaging demonstrated intrap eritoneal free fluid. An area was marked in the midaxillary line right mid abdomen, and then meticulously prepped and drape d in normal sterile fashion and anesthetized with 1% buffered lidocaine. With direct sonographic guidance, a 19-gauge needle and 5 Nigerien Yueh catheter were advanced into the abdomen. After the return of fluid, the catheter was advanced, and the needle was removed. Approximately 5 L of brownish cloudy fluid was aspirated. The patient tolerated the procedure well an d without immediate complication. IMPRESSION: Technically successful ultrasound-guided paracentesis.
[2019-01-08 14:05] LABS: BF Color Yellow; Body Fluid Source Ascites Body Fluid; Clarity Hazy (Clear); Tube # EDTA
[2019-01-08 14:50] LABS: BF RBC Count - Manual 3809 /cumm; BF WBC/Nonhematics Ct. - Manua 38 /cumm
[2019-01-08 14:54] LABS: Cell Count Non Hematic 100 %
== END 2019-01-08 12:30 | disposition home or self-care (01) ==
LOC: ULT 10:43
PROVIDERS: ATTEND Internal Medicine
PROC: 0W9G3ZZ Drainage of Peritoneal Cavity, Percutaneous Approach (ICD-10-PCS; principal; 2019-01-08)
DX: R18.8 Other ascites (principal); K74.60 Unspecified cirrhosis of liver; I10 Essential (primary) hypertension; E78.00 Pure hypercholesterolemia, unspecified; K21.9 Gastro-esophageal reflux disease without esophagitis; F17.200 Nicotine dependence, unspecified, uncomplicated; Z88.5 Allergy status to narcotic agent; Z91.041 Radiographic dye allergy status
CPT/HCPCS: 49083; 84157; 87070; 87205; 89051; P9047; 85060

== ENCOUNTER 2019-01-15 09:28 | Day surgery (SDC) | payer MEDICARE, BC ==
[2019-01-14 11:35] VITALS: BMI 31.5
[2019-01-15] MEDS ORDERED: Sodium Bicarbonate 2.5 MEQ/5 ML VIAL ONE (09:35)
--- NOTE | 2019-01-15 11:34 | ULT ---
ULTRASOUND GUIDED PARACENTESIS: Date: 01/15/19 HISTORY: Recurrent ascites. TECHNIQUE/FINDINGS: After informed consent was obtained, the patient was prepped and draped in the normal sterile fashion . Local anesthesia obtained with 1% Xylocaine mixed with sodium bicarb. A small skin incision was mad e with a #11 scalpel blade. A 6 Luxembourger Yueh catheter was introduced into the largest fluid collection , which was in the right lower quadrant. 5 liters of typical straw-colored ascites was obtained. No i mmediate complications of the procedure. IMPRESSION: Ultrasound guided paracentesis of 5 liters of fluid. POS: [facility]
[2019-01-15 11:57] VITALS: BP 131/63; TEMP 98.3
[2019-01-15 13:33] LABS: BF Color Yellow; BF RBC Count - Manual 1050 /cumm; BF WBC/Nonhematics Ct. - Manua 38 /cumm; Body Fluid Source Ascites Body Fluid; Clarity Hazy (Clear); Tube # EDTA
[2019-01-15 15:04] LABS: BF Segmented Neutrophils 5 %; Cell Count Non Hematic 84 %; Lymphocytes 11 %
== END 2019-01-15 11:00 | disposition home or self-care (01) ==
LOC: ULT 09:28
PROVIDERS: ATTEND Internal Medicine
PROC: 0W9G3ZZ Drainage of Peritoneal Cavity, Percutaneous Approach (ICD-10-PCS; principal; 2019-01-15)
DX: K74.60 Unspecified cirrhosis of liver (principal); R18.8 Other ascites; K21.9 Gastro-esophageal reflux disease without esophagitis; I10 Essential (primary) hypertension; E78.00 Pure hypercholesterolemia, unspecified; F17.200 Nicotine dependence, unspecified, uncomplicated; Z79.899 Other long term (current) drug therapy; Z88.5 Allergy status to narcotic agent; Z91.041 Radiographic dye allergy status
CPT/HCPCS: 49083; 84157; 87070; 87205; 89051; P9047; 85060

== ENCOUNTER 2019-01-22 10:38 | Day surgery (SDC) | payer MEDICARE, BC ==
[2019-01-22] MEDS ORDERED: Lidocaine 1% PF 5 ML VIAL ONE (10:40)
[2019-01-22] MEDS ORDERED: Sodium Bicarbonate 2.5 MEQ/5 ML VIAL ONE (10:40)
[2019-01-22 12:16] VITALS: BMI 25.8
[2019-01-22 13:27] VITALS: BP 131/59; TEMP 98.1
--- NOTE | 2019-01-22 13:31 | ULT ---
Sonographic guided paracentesis HISTORY: Recurrent ascites. FINDINGS: After explaining the procedure and answering all questions, sonographic survey shows large amount of free fluid throughout the abdomen. Sterile technique, buffered local anesthesia, sonographic guidance, and the right lower quadrant approach were used to carefully advance a 19-gauge Yueh needle and catheter into the free fluid. Catheter was left to drain a total volume of 5.0 L slightly cloudy yellow liquid. Catheter was removed. Moderate amount of free fluid remains. Patient t olerated the procedure well and was dismissed in good condition. IMPRESSION: Technically successful sonographic guided paracentesis.
[2019-01-22 15:32] LABS: BF Color Yellow; BF RBC Count - Manual 173 /cumm; BF WBC/Nonhematics Ct. - Manua 15 /cumm; Body Fluid Source Ascites Body Fluid; Clarity Hazy (Clear); Tube # EDTA
[2019-01-22 15:33] LABS: Cell Count Non Hematic 88 %; Lymphocytes 12 %
== END 2019-01-22 11:50 | disposition home or self-care (01) ==
LOC: ULT 10:38
PROVIDERS: ATTEND Internal Medicine
PROC: 0W9G3ZZ Drainage of Peritoneal Cavity, Percutaneous Approach (ICD-10-PCS; principal; 2019-01-22)
DX: K74.60 Unspecified cirrhosis of liver (principal); R18.8 Other ascites; K72.90 Hepatic failure, unspecified without coma; F17.200 Nicotine dependence, unspecified, uncomplicated; I10 Essential (primary) hypertension; E78.00 Pure hypercholesterolemia, unspecified; K21.9 Gastro-esophageal reflux disease without esophagitis; Z88.5 Allergy status to narcotic agent; Z91.041 Radiographic dye allergy status; Z79.2 Long term (current) use of antibiotics
CPT/HCPCS: 49083; 87070; 87205; 89051; P9047; 85060; J2001

== ENCOUNTER 2019-01-29 10:53 | Day surgery (SDC) | payer MEDICARE, BC ==
[2019-01-28 08:37] VITALS: BMI 25.8
[~2019-01-29 10:53] MED LIST changes: +Albumin 25% 25 GM/100 ML BOT ONE; -Prevnar 13-Val Conj/PF 0.5 ML SYRINGE IM ONE
[2019-01-29] MEDS ORDERED: Sodium Chloride 0.9% 20 ML ONE (11:41)
[2019-01-29 12:49] VITALS: BP 118/63; TEMP 97.2
[2019-01-29 13:07] LABS: BF Color Yellow; Body Fluid Source Ascites Body Fluid; Clarity Hazy (Clear); Tube # EDTA
[2019-01-29 13:08] LABS: BF RBC Count - Manual 2575 /cumm; BF WBC/Nonhematics Ct. - Manua 46 /cumm
[2019-01-29 13:11] LABS: BF Segmented Neutrophils 1 %; Cell Count Non Hematic 89 %; Lymphocytes 10 %
--- NOTE | 2019-01-29 14:10 | ULT ---
Ultrasound-guided paracentesis: HISTORY: Symptomatic ascites FINDINGS: Informed consent obtained prior to the procedure. Preprocedural imaging demonstrated intrap eritoneal free fluid. An area was marked in the left lower quadrant, and then meticulously prepped and draped in normal sarah rile fashion and anesthetized with 1% buffered lidocaine. With direct sonographic guidance, a 19-gauge needle and 5 Peruvian Yueh catheter were advanced into the abdomen. After the return of fluid, the catheter was advanced, and the needle was removed. Approximately 5 L of orange cloudy fluid was aspirated. The patient tolerated the procedure well and without immediate complication. IMPRESSION: Technically successful ultrasound-guided paracentesis.
== END 2019-01-29 12:25 | disposition home or self-care (01) ==
LOC: ULT 10:53
PROVIDERS: ATTEND Internal Medicine
PROC: 0W9G3ZZ Drainage of Peritoneal Cavity, Percutaneous Approach (ICD-10-PCS; principal; 2019-01-29)
DX: K70.31 Alcoholic cirrhosis of liver with ascites (principal); K72.90 Hepatic failure, unspecified without coma; R79.89 Other specified abnormal findings of blood chemistry; F17.200 Nicotine dependence, unspecified, uncomplicated; I10 Essential (primary) hypertension; K21.9 Gastro-esophageal reflux disease without esophagitis; E78.00 Pure hypercholesterolemia, unspecified; Z96.89 Presence of other specified functional implants; Z88.5 Allergy status to narcotic agent; Z88.8 Allergy status to other drugs, medicaments and biological substances; Z79.2 Long term (current) use of antibiotics; Z79.899 Other long term (current) drug therapy
CPT/HCPCS: 49083; 84157; 87070; 87205; 89051; P9047; 85060

== ENCOUNTER 2019-02-05 10:39 | Day surgery (SDC) | payer MEDICARE, BC ==
[2019-02-05] MEDS ORDERED: Sodium Bicarbonate 2.5 MEQ/5 ML VIAL ONE (11:04)
--- NOTE | 2019-02-05 12:23 | ULT ---
Ultrasound-guided paracentesis: HISTORY: Symptomatic ascites FINDINGS: Informed consent obtained prior to the procedure. Preprocedural imaging demonstrated intrap eritoneal free fluid. An area was marked in the left lower quadrant, and then meticulously prepped and draped in normal sarah rile fashion and anesthetized with 1% buffered lidocaine. With direct sonographic guidance, a 19-gauge needle and 5 Macanese Yueh catheter were advanced into the abdomen. After the return of fluid, the catheter was advanced, and the needle was removed. Approximately 5 L of cloudy yellow-colored fluid was aspirated. The patient tolerated the procedure w ell and without immediate complication. IMPRESSION: Technically successful ultrasound-guided paracentesis.
[2019-02-05 13:01] VITALS: BMI 25.8
[2019-02-05 13:04] VITALS: BP 127/60; TEMP 98.3
[2019-02-05 14:25] LABS: BF Color Yellow; BF RBC Count - Manual 490 /cumm; BF WBC/Nonhematics Ct. - Manua 29 /cumm; Body Fluid Source Ascites Body Fluid; Clarity Cloudy/Turbid (Clear); Tube # EDTA
[2019-02-05 14:26] LABS: Cell Count Non Hematic 92 %; Lymphocytes 8 %
== END 2019-02-05 12:15 | disposition home or self-care (01) ==
LOC: ULT 10:39
PROVIDERS: ATTEND Internal Medicine
DX: K74.60 Unspecified cirrhosis of liver (principal); R18.8 Other ascites; I10 Essential (primary) hypertension; E78.00 Pure hypercholesterolemia, unspecified; K21.9 Gastro-esophageal reflux disease without esophagitis; F17.200 Nicotine dependence, unspecified, uncomplicated; Z79.899 Other long term (current) drug therapy; Z91.041 Radiographic dye allergy status; Z88.5 Allergy status to narcotic agent
CPT/HCPCS: 49083; 87070; 87205; 89051; P9047; 85060

== ENCOUNTER 2019-02-12 10:34 | Day surgery (SDC) | payer MEDICARE, BC ==
[~2019-02-12 10:34] MED LIST changes: -Albumin 25% 25 GM/100 ML BOT ONE; +Prevnar 13-Val Conj/PF 0.5 ML SYRINGE IM ONE
[2019-02-12] MEDS ORDERED: Sodium Bicarbonate 2.5 MEQ/5 ML VIAL ONE (10:45)
[2019-02-12 13:42] LABS: BF Color Yellow; BF RBC Count - Manual 171 /cumm; BF WBC/Nonhematics Ct. - Manua 68 /cumm; Body Fluid Source Ascites Body Fluid; Clarity Hazy (Clear); Tube # EDTA
[2019-02-12 13:58] LABS: BF Segmented Neutrophils 9 %; Cell Count Non Hematic 75 %; Lymphocytes 15 %
--- NOTE | 2019-02-12 15:20 | ULT ---
ULTRASOUND GUIDED PARACENTESIS: COMPARISON: 02/05/2019. HISTORY: Ascites. FINDINGS: Successful ultrasound-guided paracentesis. A total of 4,900 mL of yellow-colored ascites was aspirat ed. No immediate or postprocedure complication. TECHNIQUE: Consent was obtained to perform an ultrasound-guided paracentesis. The patient's abdomen was evaluat ed. The right lower quadrant was deemed appropriate. The skin was prepped and draped in sterile fas hion. 1% Lidocaine, buffered with sodium bicarbonate was used for local anesthesia. Under ultrasoun d guidance, a 5 Portuguese 7 cm Yueh catheter was advanced into the peritoneal space. A total of 4,900 m L of yellow-colored ascites was aspirated. No immediate or postprocedure complication. IMPRESSION: Successful ultrasound-guided paracentesis. POS: OFF
[2019-02-12 16:42] VITALS: BP 142/66; TEMP 98.6
== END 2019-02-12 12:30 | disposition home or self-care (01) ==
LOC: ULT 10:34
PROVIDERS: ATTEND Internal Medicine
PROC: 0W9G3ZX Drainage of Peritoneal Cavity, Percutaneous Approach, Diagnostic (ICD-10-PCS; principal; 2019-02-12)
DX: K70.31 Alcoholic cirrhosis of liver with ascites (principal); K72.90 Hepatic failure, unspecified without coma; I10 Essential (primary) hypertension; E78.00 Pure hypercholesterolemia, unspecified; K21.9 Gastro-esophageal reflux disease without esophagitis; F17.200 Nicotine dependence, unspecified, uncomplicated; F10.11 Alcohol abuse, in remission; Z88.5 Allergy status to narcotic agent; Z91.041 Radiographic dye allergy status
CPT/HCPCS: 49083; 84157; 87070; 87205; 89051; P9047; 85060

== ENCOUNTER 2019-02-19 10:33 | Day surgery (SDC) | payer MEDICARE, BC ==
[2019-02-19 12:46] VITALS: BP 129/73; TEMP 98.1
--- NOTE | 2019-02-19 14:30 | ULT ---
Exam: Ultrasound guided paracentesis HISTORY: Ascites COMPARISON: 02/12/2019 FINDINGS: Successful ultrasound-guided paracentesis. Total of 4900 mL of yellow color ascites was asp irated. TECHNIQUE: Consent obtained reformatory ultrasound-guided paracentesis. Left lower quadrantwas deemed appropriate. Skin was prepped and draped in a sterile fashion. 1% lidocaine, buffered with sodium bicarbonate was used for local anesthesia. Under ultrasound guidance, a 5 English 7 cm Optisenseeh catheter i s advanced in the peritoneal space. A total of 4900 mL of yellow color ascites was aspirated. No immediate or postprocedural complications IMPRESSION: Successful ultrasound-guided paracentesis.
== END 2019-02-19 12:25 | disposition home or self-care (01) ==
LOC: ULT 10:33
PROVIDERS: ATTEND Internal Medicine
DX: K74.60 Unspecified cirrhosis of liver (principal); R18.8 Other ascites; I10 Essential (primary) hypertension; E78.00 Pure hypercholesterolemia, unspecified; F17.200 Nicotine dependence, unspecified, uncomplicated; K21.9 Gastro-esophageal reflux disease without esophagitis; K76.6 Portal hypertension; R79.89 Other specified abnormal findings of blood chemistry; Z79.899 Other long term (current) drug therapy; Z88.6 Allergy status to analgesic agent; Z91.041 Radiographic dye allergy status
CPT/HCPCS: 49083

== ENCOUNTER 2019-03-02 22:57 | Inpatient (IN) | payer MEDICARE, BC ==
[~2019-03-02 22:57] MED LIST changes: +ISOVUE-370 76%-LOCM 1 ML ONE; -Prevnar 13-Val Conj/PF 0.5 ML SYRINGE IM ONE
[2019-03-02] MEDS ORDERED: methylPREDNISolone Sod Succ/PF 125 MG/2 ML VIAL ONE (23:45)
[2019-03-02] MEDS ORDERED: Furosemide 40 MG/4 ML VIAL ONE (23:45)
[2019-03-02] MEDS ORDERED: Famotidine/PF 20 mg/2ml Vial ONE (23:45)
[2019-03-02] MEDS ORDERED: diphenhydrAMINE 50 MG/ML VIAL ONE (23:45)
--- NOTE | 2019-03-02 23:47 | RAD ---
XR Chest 1 View Portable HISTORY: Shortness of breath COMPARISON: None. FINDINGS: There are bibasilar lung changes and findings that would suggest a left-sided effusion and a smaller right effusion. The changes could represent bibasilar atelectasis versus infiltrate. The heart size appears borderline no interstitial edema change seen. IMPRESSION: Bibasilar pleural and parenchymal lung changes greater within the left base suggestive of the presence of effusions with bibasilar atelectasis versus infiltrate
[2019-03-02 23:55] LABS: ALT (SGPT) 12 U/L (8-55); AST (SGOT) 24 U/L (5-34); Albumin 2.8 g/dL (3.4-4.8); Alkaline Phosphatase 176 U/L (40-150); Anion Gap 11 mmol/L (10-20); BUN (Urea Nitrogen) 16 mg/dL (8.4-25.7); Bilirubin, Total 1.6 mg/dL (0.2-1.2); Calc. Creatinine Clearance 0 mL/min (70-130); Calcium 8.4 mg/dL (7.8-10.44); Carbon Dioxide 21 mmol/L (23-31); Chloride 108 mmol/L (98-107); Estimated GFR-MDRD 55; Globulin 2.3 g/dL (2.4-3.5); Glucose 101 mg/dL (80-115); Potassium 3.4 mmol/L (3.5-5.1); Protein, Total 5.1 g/dL (5.8-8.1); Sodium 137 mmol/L (136-145)
[2019-03-03 00:17] LABS: CKMB 2.2 ng/mL (0-6.6)
[2019-03-03] MEDS ORDERED: Aspirin Chewable 81 MG TAB ONE (01:38)
[2019-03-03 03:24] VITALS: BMI 29.8
[2019-03-03 03:51] LABS: Troponin I 0.072 ng/mL (< 0.028)
[2019-03-03 06:29] LABS: Troponin I 0.054 ng/mL (< 0.028)
--- NOTE | 2019-03-03 07:43 | CT ---
PRELIMINARY REPORTS/[facility]/AFTER HOURS PROCEDURE EXAM: CT Angiography Chest With Contrast EXAM DATE/TIME: 03/03/2019 12:25 AM CLINICAL HISTORY: 69 years old, male; Signs and symptoms; Shortness of breath; Patient HX: 69 yo m presents to ED with C/O SOB. PT reports sudden onset SOB that started earlier tonight after laying down for bed, with some associated left upper chest pain. PT also reports gradually worsening cough with clear sputum and wheezing that started Saturday night. PT admits to smoking x1 pack/day but denies HX copd. PT reports HX of cirrhosis. PT currently receives paracentesis every week. TECHNIQUE: Imaging protocol: Axial computed tomographic angiography images of the chest with intravenous contrast using CT angiography protocol. 3D rendering: MIP reconstructed images were created and reviewed. COMPARISON: No relevant prior studies available. FINDINGS: Pulmonary arteries: No evidence of pulmonary embolism. Aorta: Atherosclerotic calcifications and plaques of the aorta and branches. No aortic aneurysm or dissection. Lungs: Bilateral large pleural effusions and adjacent atelectasis. Right upper lobe 6 mm pulmonary nodule. Pleural space: See above. No pneumothorax. Heart: No cardiomegaly. Coronary calcifications. Mild aortic valve calcifications. Trace pericardial effusion. Upper abdomen: Partially visualized cirrhotic liver and splenomegaly. Ascites. TIPS in place. Left adrenal nodule measuring about 2 cm; the density of this nodule does not allow definitive diagnosis o f a benign adrenal adenoma on this CTA chest. Lymph nodes: No significant adenopathy. Bones/joints: No acute fracture. Soft tissues: Gynecomastia. IMPRESSION: 1. No evidence of pulmonary embolism. 2. Bilateral large pleural effusions and adjacent atelectasis. 3. Indeterminate right upper lobe pulmonary nodule. Recommend clinical correlation, comparison with prior studies if available and followup as indicated. 4. Cirrhotic liver. 5. Splenomegaly. 6. Ascites. 7. Left adrenal nodule and other findings above. Thank you for allowing us to participate in the care of your patient. Dictated and Authenticated by: Alec Godinez MD 03/03/2019 1:10 AM Central Time ([place] & [place]) FINAL REPORT EMERGENCY AFTER HOURS CT ANGIOGRAM THORAX WITH IV CONTRAST AND 3D RECONSTRUCTIONS: HISTORY: Shortness of breath. Left upper chest pain. Worsening cough. COMPARISON: None available. IMPRESSION: 1. No CT evidence of a pulmonary embolus. 2. Vascular calcifications in the coronary arteries as well as involving the thoracic aorta and visu alized upper abdominal aorta. 3. Large bilateral pleural effusions and associated passive atelectasis. 4. Approximately 6 mm right upper lobe pulmonary nodule. 5. Left adrenal nodule, measuring 2.3 cm. This cannot be further characterized on this CTA examinat ion of the chest. This nodule was seen on prior noncontrasted CT abdomen on 10/30/2017 as well as noncontrasted study in 2017. 6. Cirrhotic morphology of the liver with portal systemic shunt (TIPS) in place. The visualized patrizia n portal vein, as well as splenic vein, do appear dilated. 7. Splenomegaly. 8. Evidence of ascites in the visualized upper abdomen. 9. Trace pericardial effusion. 10. Evidence of gynecomastia. 11. Findings are in agreement with the preliminary report by [facility]. Transcribed Date/Time: 03/03/2019 9:04 AM
[2019-03-03] MEDS ORDERED: Lactulose 10 GM/15 ML Oral Solution PO SCH (09:00)
[2019-03-03] MEDS ORDERED: traMADol HCl 50 MG TAB PO PRN (09:00)
[2019-03-03] MEDS ORDERED: Furosemide 40 MG/4 ML VIAL SLOW IVP SCH ×2 (09:00→09:15)
[2019-03-03] MEDS: Cetirizine HCl 10 MG TAB PO SCH (09:10)
[2019-03-03] MEDS: Multivit, Therapeutic 1 TAB PO SCH (09:10)
[2019-03-03] MEDS: Allopurinol 300 MG TAB PO SCH (09:10)
[2019-03-03] MEDS: Pantoprazole 40 MG GRANULES PACKET PO SCH (09:11)
[2019-03-03] MEDS: Lisinopril 5 MG TAB PO SCH (09:11)
--- NOTE | 2019-03-03 09:26 | PDOC.CTH ---
Cardiology Progress Note - Objective Vital Signs Temp Pulse Resp BP BP Pulse Ox 03/03/19 09:11 87 03/03/19 07:33 97.9 F 87 24 H 129/66 90 L 03/03/19 02:44 98.1 F 101 H 20 147/76 H 97 Admit Weight 94.393 kg Weight 94.393 kg 03/02/19 03/03/19 03/04/19 06:59 06:59 06:59 Output Total 425 300 Balance -425 -300 - Labs Result Diagrams: 03/02/19 Unknown Troponin/CKMB CK-MB (CK-2) 2.2 ng/mL (0-6.6) 03/02/19 Unknown Troponin I 0.054 ng/mL (< 0.028) H 03/03/19 05:52 - Assessment/Plan Cardiology Consult Note PCP: Dr. Edmar Koch HPI: This is a 69 yo M with end-stage liver disease who comes in for shortness of breath getting progressively worse over the last 4-5 days. He states he coughs and feels short of breath whenever he lies down in bed or on the cough. He is coughing up clear phlegm, no blood. He denies fevers, chills, or sweats. He states the swelling in his legs has been getting progressively worse over the last few months. He has some chest pain associated with coughing but not related to exertion. He has no chest pain this AM. He states his weight has been stable for the last 2 months. Patient has paracentesis every . He is being evaluated for liver transplant and had a heart cath in September related to this evaluation. Per patient and report they were told it was a clean cath. PMH: HTN off meds since August 17 low BP, end stage liver disease PSH: hernia, bursa L elbow Meds: toresmide 20mg every other day, lactulose, allopurinol, levofloxacin, amlodipine- patient says he has not been taking this, panoprazole Allergies: codeine, hydrocodone, iodine Soc Hx: drank 12-15 beers daily for 50 years, no alcohol for 2 years, smokes 1 ppd, 2ppd at most for 30 years, no illicit drugs Fm Hx: denies CV history REVIEW OF SYSTEMS: Gen: no fever, chills, or sweats Neuro: denies headache Eyes: no visual changes ENT: no hearing changes, no sore throat, no congestion Resp: +cough, sob Card: chest pain associated with cough, no palpitations GI: no N/V/D, no abdominal pain MSK: no myalgias, no joint pain/stiffness Heme: no easy bruising/bleeding, no blood thinners Skin: no rash, no erythema Vitals: T: 98.1 R: 24 BP: 129/66 P:87 Sat: 98% on RA Wt: 94kg PHYSICAL EXAMINATION: General: NAD, alert and oriented x3 HEENT: PERRLA, EOMI, normal sclera, oropharynx without erythema or exudate Neck: Supple. Full ROM. Heart/Cardiovascular System: RRR, Cap refill < 3 seconds, no rub, no murmur Lungs/Respiratory System: decreased breath sounds at bases bilaterally, no resp distress Abdomen/Gastro-Intestinal System: no abdominal tenderness, normal bowel sounds, mild fluid wave Extremities: Warm extremities. No cyanosis , +2 pitting edema bilaterally Neuro: No gross deficits appreciated. CN 2-12 grossly intact Psychiatry: Awake, Alert and cooperative with exam Skin: No lesions, rashes, or ulcers Musculoskeletal: Full ROM A/P: # Suspected new onset CHF - echo taken this AM, BNP 1800 no baseline - increased Lasix to 40mg BID, fluid restrict to 1800ml - added Lisinopril 5mg, consider BB pending echo results and response to ESTELA-i - HF clinic consulted - confirm patient has stopped amlodipine upon d/c - will monitor pleural effusions # Type II WV 2/2 demand/supply imbalance - trop 0.06-> 0.072 -> 0.054 - likely 2/2 increased demand, fluid overload - clean cath in September do not anticipate another cath this stay # Paroxysmal Ventricular Tachycardia - x2 run of 6 beats of multifocal ventricular tachycardia - patient asymptomatic and resolved spontaneously - monitor, may need anti-arrhythmic agent in the future # Potential for Hepatorenal syndrome - will monitor Cr closely as we hany - Cr 1.29 today, this appears to be his baseline -See Dr. Flores recommendations to follow
--- NOTE | 2019-03-03 11:43 | CON ---
DATE OF CONSULTATION: 03/03/2019 REASON FOR CONSULTATION: Cirrhosis. HISTORY OF PRESENT ILLNESS: Abraham Collier is a 69-year-old gentleman, whom I have been following for the past couple of years for his end-stage liver disease. He has cirrhosis secondary to prior alcohol abuse, but has been abstinent for alcohol for the past 2 years now. He does still smoke. His primary manifestation of cirrhosis is severe, portal hypertension and chronic ascites. This has been quite difficult to manage due to tenuous renal function and inability to go up high on the diuretic doses. He is also followed by Nephrology. He has also established to the [facility] and sees Dr. Cam Navas there. Mr. Collier undergoes paracentesis of approximately 5 L every week for his refractory ascites. He had a TIPS placed last year. Just about 3 weeks ago, he was found to have some degree of stenosis of his TIPS and so he underwent TIPS revision on 02/11/2019. I do not have those records available, but evidently this was a good result. His transhepatic pressure gradient fell down to 8. His MELD score fell from 17 to 15. He was continued on torsemide 20 mg every other day. Mr. Collier feels his ascites has improved in fact, there were only able to get 3.5 L of his abdomen the week before last and last week, he was able to skip a week for the first time. He still does have some abdominal distention. However, now he is hospitalized with worsening shortness of breath, particularly when lying down and cough productive of clear phlegm. Upon presentation, he was found to have worsening lower extremity edema as well as bilateral pleural effusions. He has been getting IV Lasix here. Today, he says his breathing is quite a bit better, still worse when he lies flat. Echocardiogram is planned. He does have some stable mild troponin elevation, which is thought to be due to demand ischemia. He has no other complaints. 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 OUTPATIENT MEDICATIONS: 1. Torsemide 20 mg every other day. 2. Lactulose. 3. Allopurinol. 4. Levofloxacin weekly. ALLERGIES: CODEINE, HYDROCODONE, AND IODINE. SOCIAL HISTORY: He drinks 12 to 15 beers daily for 50 years. He quit 2 years ago. He still smokes 1 pack per day for the past 30 years. No drug use. FAMILY HISTORY: Noncontributory. REVIEW OF SYSTEMS: Full review of systems including constitutional; head, eyes, ears, nose, throat; GI; ; cardiovascular; respiratory; musculoskeletal; neurologic systems are negative except as noted in the HPI. PHYSICAL EXAMINATION: VITAL SIGNS: Temperature 97.9, pulse 87, blood pressure 129/66, and 90% oxygen saturation on room air. GENERAL: A 69-year-old man, sitting on the edge of the bed comfortably, in no distress. MENTAL: Alert and fully oriented. Pleasant, conversational. SKIN: No jaundice. No rashes were palpable. He has some bruising to the upper extremities bilaterally. HEENT: Eyes, no scleral icterus. Extraocular movements intact. ENT, mucous membranes moist. No oral lesions. LYMPH: No submandibular or supraclavicular lymphadenopathy. Thyroid nontender to palpation. HEART: Regular rate and rhythm. LUNGS: Decreased breath sounds at the bases bilaterally. No wheezing. No respiratory distress. ABDOMEN: Distended with ascites. This is actually much less pronounced than I have seen in a long time. He has a large umbilical hernia, which is reducible. EXTREMITIES: 1 to 2+ bilateral lower extremity edema. LABORATORY STUDIES: D-dimer 2.65. Sodium 137, potassium 3.4, BUN 16, creatinine 1.29. Total bilirubin 1.6, alkaline phosphatase 176, AST 24, ALT 12. Troponin 0.054. BNP elevated to 1806.5 and albumin 2.8. IMAGING STUDIES: Chest x-ray showed bibasilar pleural and parenchymal lung changes suggestive of effusions with bibasilar atelectasis versus infiltrate. CT angiogram performed last night demonstrated no evidence of pulmonary embolus. He has bilateral large pleural effusions and adjacent atelectasis. There is a 6 mm pulmonary nodule in the right upper lobe. No cardiomegaly. He has trace pericardial effusion. Cirrhotic liver with splenomegaly and ascites, TIPS in place. ASSESSMENT AND PLAN: 1. Cirrhosis secondary to prior alcohol abuse, now abstinent for the past 2 years. 2. Chronic ascites, actually improved following recent TIPS revision in [place] on 02/11/2019. 3. New bilateral pleural effusions, worsening lower extremity edema. 4. Chronic kidney disease. I had a long discussion with the patient and his . I think what has happened is that following his TIPS revision, he has better offloading of portal pressure into the systemic venous circulation. This increased pressures probably what is driving the worsening of lower extremity edema and the new pleural effusions, even as his ascites has actually improved. The IV Lasix administration is certainly appropriate at this time. Agree with cardiac workup as planned including echocardiogram. Notably, his renal function appears to be as good as I have seen it for quite some time, but again, this has been quite tenuous in the past. I anticipate he is going to do well with diuresis here, but I expect that he is probably going to need more aggressive diuretics on hospital discharge, and appreciate Cardiology assistance as well as that of the primary team. In the end, the patient is going to need liver transplantation and is currently listed, though with MELD score only 15, this does not appear eminent. We will plan to follow renal function and other labs tomorrow to recalculate his MELD score. Continue with the IV diuresis. Low-sodium diet. Thank you for the consultation. Please call anytime with questions or concerns. Job ID: [id number]
[2019-03-03] MEDS: Furosemide 40 MG/4 ML VIAL SLOW IVP SCH (13:25)
--- NOTE | 2019-03-03 14:42 | PDOC.EVN ---
Event Note - Event Note Event Note: Echo shows EF 45%, Esvin-i started this AM, will monitor BP overnight consider starting nadolol in AM
--- NOTE | 2019-03-03 16:02 | HP ---
HISTORY OF PRESENT ILLNESS: This is a 69-year-old male with known history of cirrhosis associated with end-stage liver disease. He is currently undergoing paracentesis once a week. He has been accepted into the liver transplant program. The daughter noting in approximately last 2 to 3 days increasing shortness of breath. He noticed some left-sided chest pain last night. He was brought to the emergency room. In the emergency room, he was found to have some mildly elevated troponins with an elevated BNP, significant for a bilateral pleural effusions that seems to be worsening over time. He has no prior history of atherosclerotic coronary artery disease. As a matter of fact, as part of his liver workup for liver transplant, he had a cardiac cath in September, which was normal. At this time, he has received some Lasix. States he is feeling a little bit better. He has not noted any further chest pain. Mainly, he has been noting increasing shortness of breath, some cough. No fever. No nausea, vomiting, or diarrhea. He has noted he has a previous history of cirrhosis. He has undergone a TIPS procedure for his cirrhosis. He notes since his TIPS procedure, he has had a little bit more problem with fluid retention in his extremities, but the ascites maybe somewhat better. Otherwise, no other medical complaints are noted. PAST MEDICAL HISTORY: Significant for hypertension, end-stage liver disease, cirrhosis; previous history of alcohol abuse, now abstinent; portal hypertension. PAST SURGICAL HISTORY: Positive for the above noted TIPS procedure. CURRENT MEDICATIONS: 1. Torsemide 20 mg every other day. 2. Lactulose. 3. Allopurinol. 4. Levofloxacin weekly. ALLERGIES: ALLERGIC TO CODEINE, HYDROCODONE, AND IODINE. SOCIAL AND PERSONAL HISTORY: He has a previous history of alcohol use. He quit 2 years ago. He still smokes tobacco products approximately 1 pack per day. REVIEW OF SYSTEMS: GI: Negative. : Negative. CARDIOVASCULAR: Positive as above. NEUROLOGIC: Otherwise negative. PHYSICAL EXAMINATION: VITAL SIGNS: His temperature is 97.9, BP 129/66, weight 208 pounds. GENERAL: He is alert and active, in no acute distress. HEENT: Normocephalic and atraumatic. Sclerae and conjunctivae clear. NECK: Supple. Full range of motion. No masses. LUNGS: Diminished breath sounds bilaterally. HEART: Reveals a regular rate and rhythm without murmurs, gallops, or rubs. ABDOMEN: Distended with ascitic changes noted. There are not any palpable masses or lesions nor is any tenderness. EXTREMITIES: Show 2+ edema bilaterally, somewhat worse on the left than the right. NEUROLOGICAL: He is alert and oriented x3. Cranial nerves 2 through 12 are intact. LABORATORY DATA: Sodium 137, potassium 3.4, chloride 108, CO2 of 21, BUN 16, creatinine 1.29. BNP is elevated at 1806. Troponins are mildly elevated with no evidence of acute coronary syndrome, however, noted. CT scan of the chest shows no evidence of any acute findings of pulmonary embolic phenomenon. It is noted that he has a large pleural effusion with adjacent atelectasis and some splenomegaly. IMPRESSION: 1. This is a 69-year-old male with a history of cirrhosis. I believe he has probably developed new onset of congestive heart failure. This maybe related to his TIPS procedure. His cardiac history would not lend itself to be an acute coronary event. 2. History of cirrhosis, alcohol abuse. PLAN: 1. The patient will be diuresed at this time. 2. Cardiology consult. 3. Gastroenterology consult. Further workup will be dictated by Cardiology. 2D echocardiogram has been ordered. He will be continued on IV Lasix. Job ID: [id number]
--- NOTE | 2019-03-03 18:47 | CON ---
DATE OF CONSULTATION: REASON FOR CONSULTATION: CHF. Please see Dr. Darshan Saleem's full consultation for details. HISTORY OF PRESENT ILLNESS: Briefly, Mr. Collier is a very pleasant 69-year-old gentleman with history of cirrhosis. He gets weekly paracentesis. His recent TIPS was revascularized. He has developed increased swelling, shortness of breath and pleural effusion bilaterally after recent revascularization of the TIPS after discussing case with Dr. Abraham Chamberlain. From a CV standpoint, Mr. Collier states he underwent coronary angiography in September or October of this year. He was not found to have significant coronary artery disease. PHYSICAL EXAMINATION: GENERAL: Patient is a pleasant male who is in no acute distress. The patient appears their stated age. VITAL SIGNS: Blood pressure 129/60, pulse 88, temperature 97.8. NEUROLOGIC: The patient is alert and oriented x3 with no focal neurologic deficits. HEENT: Sclerae without icterus. Mouth has moist mucous membranes with normal pallor. NECK: No JVD. Carotid upstroke brisk. No bruits bilaterally. LUNGS: Clear to auscultation with unlabored respirations. BACK: No scoliosis or kyphosis. CARDIAC: Regular rate and rhythm with normal S1 and S2. No S3 or S4 noted. No significant rubs, murmurs, thrills, or gallops noted throughout the precordium. PMI is not displaced. There is no parasternal heave. ABDOMEN: Soft, nontender, nondistended. No peritoneal signs present. No hepatosplenomegaly. No abnormal striae. EXTREMITIES: 2+ femoral and 2+ dorsalis pedis pulses. No cyanosis, clubbing, or edema. SKIN: No gross abnormalities. PERTINENT LABORATORY DATA: D-dimer 2.6. Creatinine 1.29. Troponin 0.06. IMPRESSION: 1. Increased edema. 2. Mild cardiomyopathy. 3. Cirrhosis. 4. Nonsustained ventricular tachycardia. RECOMMENDATIONS: From a CV standpoint, Mr. Collier is stable. We will continue to diurese. After discussing the case with Dr. Abraham Chamberlain, he states that revascularization of TIPS, he likely had increase in his systemic fluid which likely overloaded patient after recent revision of TIPS. His LVEF does appear mildly diminished and may be from underlying condition. We will add low-dose Coreg at 3.125 one p.o. b.i.d. I did discuss adding nadolol with Dr. Abraham Chamberlain, but given that he has had relief of portal hypertension with TIPS, I would defer to Coreg. Job ID: [id number]
[2019-03-04 05:54] LABS: #Lymphocytes 0.4 thou/uL (1.20-3.40); #Monocytes 0.6 thou/uL (0.11-0.59); #Neutrophils 7.9 thou/uL (1.40-6.50); %Basophils 0.1 % (0.0-1.0); %Eosinophils 0.2 % (0.0-10.0); %Lymphocytes 4.3 % (21.0-51.0); %Monocytes 7.1 % (0.0-10.0); %Neutrophils 88.3 % (42.0-75.0); Hemoglobin 9.8 g/dL (14.0-18.0); INR-International Normal Ratio 1.6; Mean Corpuscular HGB CONC 31.2 g/dL (32.0-36.0); Mean Corpuscular Hemoglobin 24.4 pg (27.0-31.0); Mean Corpuscular Volume 78.4 fL (78.0-98.0); Platelet Count 92 thou/uL (130-400); Prothrombin Time 19.2 SEC (12.0-14.7); RBC Distribution Width 18.8 % (11.5-14.5); White Blood Cell (WBC) Count 8.9 thou/uL (4.8-10.8)
[2019-03-04] MEDS: Furosemide 40 MG/4 ML VIAL SLOW IVP SCH ×3 (06:03→20:29)
[2019-03-04 06:18] LABS: ALT (SGPT) 14 U/L (8-55); AST (SGOT) 24 U/L (5-34); Albumin 2.8 g/dL (3.4-4.8); Alkaline Phosphatase 154 U/L (40-150); Anion Gap 11 mmol/L (10-20); BUN (Urea Nitrogen) 23 mg/dL (8.4-25.7); Bilirubin, Total 1.4 mg/dL (0.2-1.2); Calc. Creatinine Clearance 65 mL/min (70-130); Calcium 8.6 mg/dL (7.8-10.44); Carbon Dioxide 24 mmol/L (23-31); Chloride 110 mmol/L (98-107); Estimated GFR-MDRD 49; Globulin 2.3 g/dL (2.4-3.5); Glucose 111 mg/dL (80-115); Potassium 3.8 mmol/L (3.5-5.1); Protein, Total 5.1 g/dL (5.8-8.1); Sodium 141 mmol/L (136-145)
--- NOTE | 2019-03-04 08:19 | PRG ---
DATE OF SERVICE: 03/04/2019 SUBJECTIVE: The patient is resting comfortably. Reports no further shortness of breath. No chest pain. OBJECTIVE: VITAL SIGNS: Blood pressure 116/60, O2 saturations 92% on room air, and temperature 98.4. His weight is 204, which is down 4 pounds. LUNGS: Bilateral breath sounds. HEART: Reveals a regular rate and rhythm without murmurs. LABORATORY DATA: Hemoglobin 9.8, hematocrit 31.3. INR is 1.6. Sodium 141, potassium 3.8, chloride 110, CO2 of 24, BUN 23, and creatinine 1.42. IMPRESSION: New-onset congestive heart failure. I believe this is a volume overload situation. PLAN: Continue diuresis today. We will have to adjust his outpatient medications. Hopefully, can discharge home tomorrow. Job ID: [id number]
[2019-03-04] MEDS ORDERED: Nadolol 40 MG TAB PO SCH (09:00)
[2019-03-04] MEDS: Carvedilol 3.125 MG TAB PO SCH ×2 (09:08→17:57)
[2019-03-04] MEDS: Lisinopril 5 MG TAB PO SCH (09:08)
[2019-03-04] MEDS: Allopurinol 300 MG TAB PO SCH (09:08)
[2019-03-04] MEDS: Cetirizine HCl 10 MG TAB PO SCH (09:08)
[2019-03-04] MEDS: Pantoprazole 40 MG GRANULES PACKET PO SCH (09:09)
[2019-03-04] MEDS: Multivit, Therapeutic 1 TAB PO SCH (09:09)
--- NOTE | 2019-03-04 14:34 | PRG ---
DATE OF SERVICE: 03/04/2019 SUBJECTIVE: Mr. Collier says he is feeling a lot better today. Weight went down 4 pounds. His lower extremity edema is improving. Shortness of breath has improved. He still has some orthopnea and cough whenever he lies flat. His echocardiogram showed ejection fraction of 40% to 45%. OBJECTIVE: VITAL SIGNS: Temperature 98.3, pulse 65, blood pressure 94/50, and 93% oxygen saturation on room air. GENERAL: No acute distress. HEART: Regular rate and rhythm. LUNGS: Bibasilar crackles. No tachypnea. No respiratory distress. ABDOMEN: Mild distention with ascites, significant improvement from prior exams. EXTREMITIES: 1+ bilateral lower extremity edema. LABORATORY STUDIES: Sodium 141, potassium 3.8, BUN 23, creatinine 1.42. Total bilirubin 1.4, alkaline phosphatase 154, AST 24, ALT 14, albumin 2.8. INR 1.6. WBC 8.9, hemoglobin 9.8, platelets 92. ASSESSMENT AND PLAN: 1. New onset congestive heart failure, exacerbated by recent TIPS revision. 2. Chronic ascites, improved following recent TIPS revision. 3. Chronic kidney disease. Mr. Collier seems to have responded very well to the IV Lasix for diuresis. He still has cough when lying supine. I agree that his outpatient diuretics are probably going to have to be titrated up. Previously, he was on torsemide 20 mg every other day. Could consider going to daily dosing on this. Dr. Klein has also recommended adding Coreg. No barriers to hospital discharge from a GI perspective tomorrow if the patient continues to feel well and renal function stable. We will plan to see him back in clinic in the next couple of weeks. Note, his MELD score is 16, which is pretty good for him. Job ID: [id number]
[2019-03-05] MEDS ORDERED: Furosemide 40 MG/4 ML VIAL ONE (05:43)
[2019-03-05] MEDS ORDERED: Carvedilol 3.125 MG TAB ONE (08:20)
[2019-03-05] MEDS ORDERED: Lisinopril 5 MG TAB ONE (08:21)
[2019-03-05] MEDS ORDERED: Multivitamin W/ Minerals 1 TAB ONE (08:21)
[2019-03-05] MEDS ORDERED: Allopurinol 300 MG TAB ONE (08:22)
[2019-03-05] MEDS ORDERED: Cetirizine HCl 10 MG TAB ONE (08:22)
[2019-03-05] MEDS: Furosemide 40 MG/4 ML VIAL SLOW IVP SCH ×2 (08:57→14:26)
[2019-03-05] MEDS ORDERED: Furosemide 100 MG/10 ML VIAL SLOW IVP SCH (09:15)
[2019-03-05] MEDS: Carvedilol 3.125 MG TAB PO SCH ×2 (09:21→16:54)
[2019-03-05] MEDS: Allopurinol 300 MG TAB PO SCH (09:25)
--- NOTE | 2019-03-05 09:25 | ULT ---
ULTRASOUND-GUIDED PARACENTESIS THERAPEUTIC: DATE: 03/05/2019 HISTORY: 69-year-old male with ascites. TECHNIQUE: Signed informed consent obtained. A four-quadrant survey of abdomen performed. Site selected for puncture: Overlying skin prepared and draped in usual sterile fashion. 25-gauge needle used to apply buffered lidocaine superficially and deeply. 5 Tajik Yueh catheter with stylette advanced into the pocket of free intraperitoneal fluid. After drainage, the Yueh catheter was removed. Patient tolerated the procedure well. No complications. FINDINGS: Site of puncture: Right lateral mid abdomen. Volume of ascites prior to procedure:moderate. Volume of ascites fluid in the drainage pocket after drainage:None. Volume of ascites fluid drained:3900 mL Appearance of ascites fluid: Nonhemorrhagic, translucent straw-colored. IMPRESSION: Successful therapeutic paracentesis, with drainage of 3.9 L of ascites fluid.
[2019-03-05] MEDS: Multivit, Therapeutic 1 TAB PO SCH (09:26)
[2019-03-05] MEDS: Cetirizine HCl 10 MG TAB PO SCH (09:26)
[2019-03-05] MEDS: Lisinopril 5 MG TAB PO SCH (09:26)
[2019-03-05] MEDS: Pantoprazole 40 MG GRANULES PACKET PO SCH (09:26)
--- NOTE | 2019-03-05 09:44 | PRG ---
DATE OF SERVICE: 03/04/2019 SUBJECTIVE: Mr. Collier is doing much better. He has less shortness of breath. No chest pain or pressure noted. He states his edema has also improved. He has lost 4 pounds over the last 24 hours. OBJECTIVE: VITAL SIGNS: Blood pressure 106/55, pulse 57, temperature 98.3. LUNGS: Clear to auscultation. HEART: Regular rate and rhythm. ABDOMEN: Soft, nontender, nondistended. EXTREMITIES: 1 to 2+ pitting edema. PERTINENT LABORATORY DATA: Hemoglobin 9.8. Creatinine 1.42. Troponin 0.06. IMPRESSION: 1. Combined diastolic and systolic dysfunction. 2. Cirrhosis. 3. Edema. RECOMMENDATIONS: Mr. Collier's status appears improved. I have added carvedilol 3.125 one p.o. b.i.d. His LVEF appears to be estimated at 40% to 45%. We will continue lisinopril. Nadolol has been discontinued. Recheck creatinine in a.m. Discharge likely tomorrow. Job ID: [id number]
--- NOTE | 2019-03-05 12:12 | RAD ---
SINGLE VIEW CHEST: HISTORY: CHF. COMPARISON: 03/02/2019 FINDINGS: A single view of the chest shows an enlarged but stable cardiomediastinal silhouette. There appear t o be small bilateral pleural effusions, left greater than, right adjacent atelectasis versus infiltra valdemar. No change has occurred compared to the prior exam. IMPRESSION: Stable examination. POS: [facility]
[2019-03-05 15:37] LABS: Anion Gap 14 mmol/L (10-20); BUN (Urea Nitrogen) 31 mg/dL (8.4-25.7); Calc. Creatinine Clearance 56 mL/min (70-130); Carbon Dioxide 25 mmol/L (23-31); Chloride 107 mmol/L (98-107); Estimated GFR-MDRD 42; Glucose 118 mg/dL (80-115); Potassium 3.6 mmol/L (3.5-5.1); Sodium 142 mmol/L (136-145)
--- NOTE | 2019-03-05 16:27 | PRG ---
DATE OF SERVICE: 03/05/2019 SUBJECTIVE: Mr. Collier today has increased shortness of breath. No chest pain or pressure noted. He has received diuretic therapy. His creatinine slightly increased from 1.4 to 1.6. He has had some diuresis, but continues with shortness of breath. OBJECTIVE: VITAL SIGNS: Blood pressure 119/57, pulse 61, and temperature 97.7. LUNGS: Decreased breath sounds noted bilaterally. HEART: Regular rate and rhythm. ABDOMEN: Distended. EXTREMITIES: 1+ pitting edema. PERTINENT LABORATORY DATA: Creatinine 1.65. Hemoglobin 9.8. IMPRESSION: 1. Acute on chronic systolic/diastolic heart failure. 2. Cirrhosis. 3. Recent transjugular intrahepatic portosystemic shunt procedure. RECOMMENDATIONS: Mr. Collier has received Lasix therapy. He continues to have issues with shortness of breath. This all began after recent revision of his TIPS. Transplant team at [facility] has requested transfer to [facility]. From a CV standpoint, I have no further recommendations. Job ID: [id number]
--- NOTE | 2019-03-05 16:36 | PRG ---
DATE OF SERVICE: 03/05/2019 SUBJECTIVE: Mr. Collier was resting comfortably yesterday, was relative asymptomatic last night, began having sudden further shortness of breath associated with some coughing. He does not noted any chest pain. No nausea, vomiting, or diarrhea. No fever was noted. He states this was very similar to his previous episodes, he have been responding well to IV Lasix. No further complaints were noted. OBJECTIVE: LUNGS: Reveal decreased breath sounds bilaterally. HEART: Reveals a regular rate and rhythm. No murmurs, gallops, or rubs. IMAGING DATA: Chest x-ray, bilateral pleural effusions, left greater than right. No active pneumonia was noted. IMPRESSION: Dyspnea of unknown etiology. Still this could represent some type of volume overload situation with his transjugular intrahepatic portosystemic shunt procedure. PLAN: The patient has informed me that he has talked with the transplant center, [facility] [place], [place]. They would like for him to be transferred there. We are in the process of transferring the patient at this time. I feel due to the fact he has had an O2 saturations in the 80s, he will need to be transferred on oxygen via ambulance rather than private car. Job ID: [id number]
[2019-03-05 19:45] LABS: %Lymphocytes 12.4 % (21.0-51.0); %Monocytes 11.8 % (0.0-10.0); %Neutrophils 75.2 % (42.0-75.0); Hemoglobin 9.5 g/dL (14.0-18.0); Mean Corpuscular HGB CONC 31.5 g/dL (32.0-36.0); Mean Corpuscular Hemoglobin 24.8 pg (27.0-31.0); Mean Corpuscular Volume 78.7 fL (78.0-98.0); Mean Platelet Volume 11.2 fL (7.4-10.4); Platelet Count 95 thou/uL (130-400); RBC Distribution Width 18.8 % (11.5-14.5); Red Blood Cell (RBC) Count 3.83 mill/uL (4.70-6.10); White Blood Cell (WBC) Count 6.2 thou/uL (4.8-10.8)
[2019-03-05 19:46] LABS: #Lymphocytes 0.8 thou/uL (1.20-3.40); #Monocytes 0.7 thou/uL (0.11-0.59); #Neutrophils 4.7 thou/uL (1.40-6.50); %Basophils 0.5 % (0.0-1.0); %Eosinophils 0.2 % (0.0-10.0)
[2019-03-05 19:47] LABS: Hypochromia SLIGHT = 6-15 cells (100X) (0-5/hpf); Microcytosis SLIGHT = 6-15 cells (100X) (0-5/hpf); Polychromasia SLIGHT = 2-3 cells (100X) (0-2/hpf)
[2019-03-05 19:48] LABS: Anion Gap 11 mmol/L (10-20); BUN (Urea Nitrogen) 31 mg/dL (8.4-25.7); Calc. Creatinine Clearance 55 mL/min (70-130); Carbon Dioxide 26 mmol/L (23-31); Chloride 109 mmol/L (98-107); Estimated GFR-MDRD 41; Glucose 78 mg/dL (80-115); INR-International Normal Ratio 1.7; Potassium 3.7 mmol/L (3.5-5.1); Prothrombin Time 19.8 SEC (12.0-14.7); Sodium 142 mmol/L (136-145)
[2019-03-05 19:49] LABS: ALT (SGPT) 14 U/L (8-55); AST (SGOT) 25 U/L (5-34); Albumin 2.9 g/dL (3.4-4.8); Alkaline Phosphatase 154 U/L (40-150); Bilirubin, Total 1.1 mg/dL (0.2-1.2); Calcium 8.1 mg/dL (7.8-10.44); Globulin 2.2 g/dL (2.4-3.5); Protein, Total 5.1 g/dL (5.8-8.1)
--- NOTE | 2019-03-05 21:09 | PRG ---
DATE OF SERVICE: 03/05/2019 SUBJECTIVE: Mr. Collier had worsening of shortness of breath and cough last night. He has had to remain on oxygen due to desaturations whenever it is taken off. He underwent paracentesis earlier today with 3.9 L of ascites drained. Evidently, arrangements have been made for transfer down to [facility], where his liver transplant team is, though still awaiting bed availability. OBJECTIVE: VITAL SIGNS: Temperature 97.7, pulse 87, blood pressure 119/57, 97% oxygen saturation on 2 L nasal cannula. GENERAL: No acute distress. HEART: Regular rate and rhythm. LUNGS: Bibasilar crackles. ABDOMEN: Mild distention, not tense. Bowel sounds present. Soft and nontender to palpation. EXTREMITIES: 1+ bilateral lower extremity edema. LABORATORY STUDIES: Sodium 142; potassium 3.6; BUN 31; creatinine 1.65, which is up from yesterday when it was 1.42; alkaline phosphatase 154; AST 25; ALT 14; total bilirubin 1.1. ASSESSMENT AND PLAN: 1. New onset congestive heart failure, exacerbated after recent TIPS revision. 2. Chronic ascites, improved following recent TIPS revision. 3. Chronic kidney disease. 4. Cirrhosis, secondary to alcohol, abstinent for the past 2 years now. Primary active issue at this point seems to be continued oxygen dependence secondary to fluid overload and pleural effusions. Arrangements have been made for transfer to [facility], where his liver transplant team is, and I agree with this. Continue with the IV Lasix for now. No other new recommendations from a GI perspective at this time. If Mr. Collier is not able to be transferred for some reason and remains inpatient, Dr. Conrad is covering for GI this weekend. Job ID: [id number]
[2019-03-06] MEDS: Furosemide 40 MG/4 ML VIAL SLOW IVP SCH (06:04)
[2019-03-06] MEDS: Pantoprazole 40 MG GRANULES PACKET PO SCH (09:05)
[2019-03-06] MEDS: Cetirizine HCl 10 MG TAB PO SCH (09:09)
[2019-03-06] MEDS: Multivit, Therapeutic 1 TAB PO SCH (09:09)
[2019-03-06] MEDS: Allopurinol 300 MG TAB PO SCH (09:09)
[2019-03-06] MEDS: Carvedilol 3.125 MG TAB PO SCH (09:09)
[2019-03-06] MEDS: Lisinopril 5 MG TAB PO SCH (09:10)
--- NOTE | 2019-03-06 10:12 | PRG ---
DATE OF SERVICE: 03/06/2019 SUBJECTIVE: Mr. Collier has not been transferred yet to [facility]. There has been some delay on their end to coordinate with us for transfer. The patient is comfortable today. Reports a little bit less shortness of breath. DuoNeb treatment seems to improve his breathing some. However, he notes having a DuoNeb, he was feeling well. Went to the bathroom and upon return from the bathroom, noted sudden onset of shortness of breath. OBJECTIVE: VITAL SIGNS: BP 115/63 and temperature 98.0. LUNGS: Reveal bilateral breath sounds. HEART: Reveals no murmur. LABORATORY DATA: His hemoglobin 9.5 and hematocrit 30.2. Sodium 142, potassium 3.7, chloride 109, CO2 is 26, and creatinine is 1.68. The patient underwent paracentesis yesterday 3.9 L. IMPRESSION: 1. Fluid overload syndrome, possibly related to his transjugular intrahepatic portosystemic shunt procedure. 2. Slightly depressed cardiac outputs of 40% to 45%. 3. Could be some chronic obstructive pulmonary disease issues as well. PLAN: At this point, it has been requested by his patient experience coordinator having transfer to [place], we are ready to go to transfer, they need accepting bed and physician. Job ID: [id number]
[2019-03-06 10:19] LABS: Platelet Morphology Comment Appears Decreased
[2019-03-06 12:02] VITALS: BP 125/59; TEMP 97.8
--- NOTE | 2019-03-07 12:26 | EKG ---
Test Reason : Blood Pressure : / mmHG Vent. Rate : 101 BPM Atrial Rate : 101 BPM P-R Int : 202 ms QRS Dur : 084 ms QT Int : 376 ms P-R-T Axes : 075 005 021 degrees QTc Int : 487 ms Sinus tachycardia with Premature atrial complexes with Abberant conduction Low voltage QRS Cannot rule out Anterior infarct , age undetermined Abnormal ECG Confirmed by CRISTOBAL MERCEDES ([id number]), food expeditor PAT GARCIA ([id number]) on 03/07/2019 12:26:26 PM Referred By: Confirmed By:CRISTOABL MERCEDES
== END 2019-03-06 12:38 | disposition short-term general hospital (02) | DRG 291 ==
LOC: ERS 22:57 → 2SW 03-03 02:45 → OBSVTOIN 03-05 11:59
PROVIDERS: ADMIT Family Medicine; ATTEND Family Medicine
PROC: 0W9G3ZZ Drainage of Peritoneal Cavity, Percutaneous Approach (ICD-10-PCS; principal; 2019-03-05)
PROC: BF4CZZZ Ultrasonography of Hepatobiliary System, All (ICD-10-PCS; 2019-03-05)
DX: I13.0 Hypertensive heart and chronic kidney disease with heart failure and stage 1 through stage 4 chronic kidney disease, or unspecified chronic kidney disease (principal); K76.7 Hepatorenal syndrome; I50.43 Acute on chronic combined systolic (congestive) and diastolic (congestive) heart failure; I47.2 Ventricular tachycardia; J90 Pleural effusion, not elsewhere classified; I24.8 Other forms of acute ischemic heart disease; I42.9 Cardiomyopathy, unspecified; K70.40 Alcoholic hepatic failure without coma; F10.10 Alcohol abuse, uncomplicated; J44.9 Chronic obstructive pulmonary disease, unspecified; F17.210 Nicotine dependence, cigarettes, uncomplicated; N18.9 Chronic kidney disease, unspecified; K70.31 Alcoholic cirrhosis of liver with ascites; Z90.49 Acquired absence of other specified parts of digestive tract; Z98.890 Other specified postprocedural states; Z88.5 Allergy status to narcotic agent
CPT/HCPCS: 36415; 49083; 71045; 71275; 80048; 80053; 82553; 83735; 83880; 84484; 85025; 85379; 85610; 93005; 93306; 96374; 96375; 99406; J1200; J1940; J2930; J7620; S0028

== ENCOUNTER 2019-03-18 13:22 | Day surgery (SDC) | payer MEDICARE, BC ==
[2019-03-17 13:30] VITALS: BMI 25.8
--- NOTE | 2019-03-18 13:55 | ULT ---
US Abdomen Limited History: Ascites Comparison: Paracentesis March 05, 2019 Findings: There is minimal fluid within the abdomen. There is not enough fluid to safely perform para centesis. This was agreeable with the patient. Impression: Not enough intraperitoneal fluid to justify a paracentesis.
[2019-03-18] MEDS ORDERED: Albumin 25% 100 ML ONE (14:21)
[2019-03-18 14:25] VITALS: BP 132/60; TEMP 98.2
== END 2019-03-18 14:00 | disposition home or self-care (01) ==
LOC: ULT 13:22
DX: R18.8 Other ascites (principal); Z88.5 Allergy status to narcotic agent; Z91.041 Radiographic dye allergy status; Z79.899 Other long term (current) drug therapy
CPT/HCPCS: 76705; P9047

== ENCOUNTER 2019-05-07 10:47 | Day surgery (SDC) | payer MEDICARE, BC ==
[2019-05-06 14:24] VITALS: BMI 27.3
--- NOTE | 2019-05-07 11:53 | ULT ---
EXAM: US Abdomen Limited CLINICAL HISTORY: Evaluate for ascites. Patient is scheduled for ultrasound-guided paracentesis.. COMPARISON: 03/18/2019 FINDINGS: No significant intra-abdominal free fluid to warrant paracentesis at this time. There is a small amou nt of free fluid in the right upper quadrant. IMPRESSION: No significant ascites to warrant paracentesis at this time
[2019-05-07 15:52] VITALS: BP 141/76; TEMP 97.8
== END 2019-05-07 11:30 | disposition home or self-care (01) ==
LOC: ULT 10:47
PROVIDERS: ATTEND Internal Medicine
DX: K74.60 Unspecified cirrhosis of liver (principal); R18.8 Other ascites; I10 Essential (primary) hypertension; K21.9 Gastro-esophageal reflux disease without esophagitis; E78.00 Pure hypercholesterolemia, unspecified; Z79.899 Other long term (current) drug therapy; Z88.5 Allergy status to narcotic agent; Z91.041 Radiographic dye allergy status
CPT/HCPCS: 76705

== ENCOUNTER 2019-05-27 08:10 | Outpatient (CLI) | payer MEDICARE, BC ==
--- NOTE | 2019-05-27 09:26 | RAD ---
TWO VIEWS CHEST: DATE: 05/27/2019. PROVIDED CLINICAL HISTORY: Cough. FINDINGS: Comparison 03/05/2019. The cardiac and mediastinal silhouette are somewhat obscured due to bibasilar pleural parenchymal opa cities. No evidence for pneumothorax. Prominence of the pulmonary vasculature persists. Blunting o f the posterior costophrenic angles compatible with bilateral pleural fluid. IMPRESSION: Prominence of the pulmonary vasculature and bibasilar pleural parenchymal opacities that may reflect pleural fluid with adjacent atelectasis or infiltrate. POS: OFF
== END 2019-05-27 08:11 | disposition home or self-care (01) ==
LOC: BICRAD 08:10
PROVIDERS: ATTEND Family Medicine
DX: J81.0 Acute pulmonary edema (principal); K74.60 Unspecified cirrhosis of liver; R91.8 Other nonspecific abnormal finding of lung field
CPT/HCPCS: 71046

== ENCOUNTER → 2019-06-01 | Day surgery (SDC) | payer MEDICARE, BC ==
--- NOTE | 2019-06-01 13:12 | ULT ---
Sonogram abdomen limited HISTORY: Recurrent ascites. FINDINGS: Sonographic evaluation shows minimal fluid within the abdomen. Not sufficient amount for th erapeutic paracentesis. Bilateral pleural fluid is apparent, large amount right and [id number] amount of the left. IMPRESSION: Very small amount of free abdominal fluid. Paracentesis not performed. Large amount right pleural fluid (small to moderate amount of left pleural fluid). Thoracentesis was discussed with the patient, although he expressed some concern based on recent conv ersation with hepatic transplant team. He will communicate with the hepatic transplant team in [place]. If he then desires, sonographic guided thoracentesis will be scheduled.
== END ==
LOC: ULT 10:30
PROVIDERS: ATTEND Family Medicine
DX: K74.60 Unspecified cirrhosis of liver (principal); R18.8 Other ascites; Z88.5 Allergy status to narcotic agent; Z91.041 Radiographic dye allergy status
CPT/HCPCS: 76705

== ENCOUNTER 2019-06-05 08:04 | Day surgery (SDC) | payer MEDICARE, BC ==
[2019-06-05 08:22] LABS: INR-International Normal Ratio 1.5; PTT 40.3 SEC (22.9-36.1); Prothrombin Time 18.1 SEC (12.0-14.7)
[2019-06-05] MEDS ORDERED: Sodium Bicarbonate 2.5 MEQ/5 ML VIAL ONE (08:31)
--- NOTE | 2019-06-05 09:38 | RAD ---
Inspiratory and expiratory views of chest COMPARISON: 03/05/2019 CLINICAL HISTORY: Status post right thoracentesis FINDINGS: Status post right thoracentesis, there is mild residual right pleural fluid. No significant pneumothorax. There is a moderate left pleural effusion. Cardiac silhouette and pulmonary vasculature are mildly prominent. IMPRESSION: Status post right thoracentesis, without a significant, postprocedural pneumothorax josuéa alexandro.
--- NOTE | 2019-06-05 09:59 | ULT ---
ULTRASOUND GUIDED RIGHT THORACENTESIS: CLINICAL HISTORY: Pleural fluid. PROCEDURE: Informed consent was obtained and the patient was escorted to the procedural suite. Utilizing ultraso und guidance, right pleural fluid collection was localized. The right back was then prepped and draped in the standard sterile fashion and topical anesthesia was achieved with buffered 1% lidocaine . A small skin incision was made, through which a Yueh needle was advanced into the pleural space. Clear yellow pleural fluid was obtained at the hub. Subsequently, 900 mL clear yellow pleural fluid w as drained from the right chest. All devices were removed from the patient. No significant complications. Patient was transferred to radiology holding for postprocedural monitoring in stable c ondition. IMPRESSION: Technically successful right thoracentesis under ultrasound guidance yielding 900 mL clear yellow ple ural fluid. Transcribed Date/Time: 06/05/2019 12:15 PM
[2019-06-05 10:11] VITALS: BP 115/59; TEMP 98
--- NOTE | 2019-06-05 11:53 | RAD ---
2 VIEW CHEST: Date: 06/05/19 PA views with inspiration and expiration obtained. INDICATION: Follow-up thoracentesis. Comparison made to films at 0922 hours. FINDINGS: Bilateral effusions, larger on the left. No evidence of pneumothorax. No interval change noted. IMPRESSION: Stable chest findings. POS: [facility]
== END 2019-06-05 10:45 | disposition home or self-care (01) ==
LOC: ULT 08:04
PROVIDERS: ATTEND Family Medicine
PROC: 0W993ZZ Drainage of Right Pleural Cavity, Percutaneous Approach (ICD-10-PCS; principal; 2019-06-05)
PROC: BB4BZZZ Ultrasonography of Pleura (ICD-10-PCS; 2019-06-05)
DX: J90 Pleural effusion, not elsewhere classified (principal); I11.0 Hypertensive heart disease with heart failure; I50.9 Heart failure, unspecified; F17.200 Nicotine dependence, unspecified, uncomplicated; K21.9 Gastro-esophageal reflux disease without esophagitis; K76.9 Liver disease, unspecified; Z88.5 Allergy status to narcotic agent; Z91.041 Radiographic dye allergy status
CPT/HCPCS: 36415; 71045; 76942; 85610; 85730

== ENCOUNTER 2019-06-12 08:32 | Day surgery (SDC) | payer MEDICARE, BC ==
[2019-06-12] MEDS ORDERED: Lidocaine 1% PF 5 ML VIAL ONE (08:35)
[2019-06-12] MEDS ORDERED: Sodium Bicarbonate 2.5 MEQ/5 ML VIAL ONE (08:35)
--- NOTE | 2019-06-12 09:53 | RAD ---
EXAM: XR Chest Insp/Exp PROVIDED CLINICAL HISTORY: Patient with bilateral pleural effusions. Patient is post left thoracentesis. COMPARISON: 06/05/2019. FINDINGS: A small right pleural effusion is again seen which is not significantly changed when compared to the prior exam. There has been interval decrease in the pleural and parenchymal changes left lung base related to recent left thoracentesis. A tiny left pleural effusion does persist with mild volume loss at the left lung base. No pneumothorax is seen. The cardiac silhouette is magnified by projection. The pulmonary vasculature is within normal limits. No other interval change. IMPRESSION: 1. Interval decrease in left pleural effusion related to recent thoracentesis and only a tiny left pl eural effusion and atelectasis persists. 2. Stable small right pleural effusion and atelectasis. 3. No pneumothorax visualized.
[2019-06-12 09:54] VITALS: BMI 28.5
[2019-06-12 09:59] VITALS: BP 134/63; TEMP 98.2
--- NOTE | 2019-06-12 10:43 | RAD ---
EXAM: XR Chest Insp/Exp PROVIDED CLINICAL HISTORY: Patient is post left thoracentesis. This is a follow-up chest x-ray. COMPARISON: 06/12/2016 at 0942 hours. FINDINGS: There is mild atelectasis at the left lung base, but the volume loss at the left lung base has improv ed from the recent study. A very tiny left pleural effusion persists. There is no pneumothorax. A small right pleural effusion and associated atelectasis is present. Cardiac silhouette and pulmonary vasculature are within normal limits. Vascular calcifications are se en in the thoracic aorta. No other interval change. IMPRESSION: 1. Small right and tiny left pleural effusions. No pneumothorax is present. There is mild volume loss at each lung base. Volume loss at the left lung base has improved. No pneumothorax is seen.
--- NOTE | 2019-06-12 15:00 | ULT ---
EXAM: US Thoracentesis PROVIDED CLINICAL HISTORY: Bilateral pleural effusions in patient with cirrhosis and history of prior TIPS procedure. COMPARISON: 06/05/2019 FINDINGS: The procedure including the risks and complications were explained to the patient, and informed conse nt was obtained. Limited sonographic evaluation of the chest was performed bilaterally demonstrating bilateral pleural effusions. Bilateral pleural effusions were also seen prior ultrasoun d of the chest on 06/05/2019. The previously seen right pleural effusion is smaller in size compared to prior exam likely due to interval thoracentesis. An area overlying the lower left chest was marked, and the area was meticulously prepped and draped i n usual sterile fashion. Skin and subcutaneous tissues were infiltrated with buffered 1% lidocaine for local anesthesia. Small skin incision was made. Utilizing concurrent real-time ultrasound guidanc e, a 19-gauge AdStageeh needle with 5 Ug[place]an sheath was advanced into the left pleural space. After the return of fluid and visualization of the tip of the needle within the pleural space, the sheath was a dvanced, and the needle was removed. Approximately 1625 mL of clear straw-colored fluid was aspirated. The sheath was removed, and hemostasis was achieved with direct pressure. A dry sterile dr essing was placed. Follow-up chest x-ray demonstrated no evidence of a pneumothorax. The patient tolerated the procedure well and without immediate complication. IMPRESSION: 1. Bilateral pleural effusions larger in size on the left. 2. Successful left thoracentesis. No pneumothorax is seen on post procedure chest x-ray or follow-up chest x-ray.
== END 2019-06-12 10:45 | disposition home or self-care (01) ==
LOC: ULT 08:32
PROVIDERS: ATTEND Family Medicine
PROC: 0W9B3ZZ Drainage of Left Pleural Cavity, Percutaneous Approach (ICD-10-PCS; principal; 2019-06-12)
DX: J90 Pleural effusion, not elsewhere classified (principal); J98.11 Atelectasis; K74.60 Unspecified cirrhosis of liver; I11.0 Hypertensive heart disease with heart failure; I50.9 Heart failure, unspecified; K21.9 Gastro-esophageal reflux disease without esophagitis; E78.00 Pure hypercholesterolemia, unspecified; F10.11 Alcohol abuse, in remission; F17.210 Nicotine dependence, cigarettes, uncomplicated; Z79.899 Other long term (current) drug therapy; Z88.5 Allergy status to narcotic agent; Z91.041 Radiographic dye allergy status
CPT/HCPCS: 71045; 76942; J2001

== ENCOUNTER 2019-06-23 11:10 | Outpatient (CLI) | payer MEDICARE, BC ==
--- NOTE | 2019-06-23 12:08 | RAD ---
PA AND LATERAL VIEWS CHEST: Date: 06/23/19 HISTORY: Cirrhosis, cough. FINDINGS/IMPRESSION: Comparison made with exam of 05/27/19. Heart size normal. There are bilateral pleural effusions with adjacent infiltrates. No pneumothoraces or prosper pulmonary edema seen. POS: OFF
== END 2019-06-23 11:11 | disposition home or self-care (01) ==
LOC: BICRAD 11:10
PROVIDERS: ATTEND Family Medicine
DX: K74.60 Unspecified cirrhosis of liver (principal); J90 Pleural effusion, not elsewhere classified; R91.8 Other nonspecific abnormal finding of lung field
CPT/HCPCS: 71046

== ENCOUNTER 2019-07-15 11:45 | Emergency (ER) | payer MEDICARE, BC ==
[2019-07-15 13:40] LABS: #Lymphocytes 0.7 thou/uL (1.20-3.40); #Monocytes 0.5 thou/uL (0.11-0.59); #Neutrophils 3.6 thou/uL (1.40-6.50); %Basophils 0.4 % (0.0-1.0); %Eosinophils 0.4 % (0.0-10.0); %Lymphocytes 14.7 % (21.0-51.0); %Monocytes 10.7 % (0.0-10.0); %Neutrophils 73.7 % (42.0-75.0); Hemoglobin 10.8 g/dL (14.0-18.0); Mean Corpuscular HGB CONC 31.1 g/dL (32.0-36.0); Mean Corpuscular Hemoglobin 23.2 pg (27.0-31.0); Mean Corpuscular Volume 74.7 fL (78.0-98.0); RBC Distribution Width 18.8 % (11.5-14.5); Red Blood Cell (RBC) Count 4.67 mill/uL (4.70-6.10); White Blood Cell (WBC) Count 4.9 thou/uL (4.8-10.8)
[2019-07-15 13:53] LABS: Lactic Acid 1.6 mmol/L (0.5-2.2)
[2019-07-15 13:57] LABS: ALT (SGPT) 16 U/L (8-55); AST (SGOT) 38 U/L (5-34); Albumin 3.1 g/dL (3.4-4.8); Alkaline Phosphatase 173 U/L (40-110); Anion Gap 12 mmol/L (10-20); BUN (Urea Nitrogen) 24 mg/dL (8.4-25.7); Bilirubin, Total 1.9 mg/dL (0.2-1.2); Calc. Creatinine Clearance 0 mL/min (70-130); Calcium 8.6 mg/dL (7.8-10.44); Carbon Dioxide 21 mmol/L (23-31); Chloride 106 mmol/L (98-107); Estimated GFR-MDRD 51; Globulin 3.1 g/dL (2.4-3.5); Glucose 76 mg/dL (80-115); Potassium 4.2 mmol/L (3.5-5.1); Protein, Total 6.2 g/dL (5.8-8.1); Sodium 135 mmol/L (136-145)
--- NOTE | 2019-07-15 14:01 | CT ---
EXAM: Abdomen and pelvic CT scan without contrast: HISTORY: Status post umbilical hernia reduction cirrhosis COMPARISON: 10/30/2017 FINDINGS: Moderate to large bilateral pleural effusions with some pleural-based parenchymal changes evidence fo r partial atelectasis. Liver: Small nodular liver evidence for cirrhosis. Portal caval shunt tube in place. Evidence for a i ntravascular wire remnant near the bridgett hepatis. Gallbladder:At least one gallstone without evidence for acute cholecystitis. Pancreas:Unremarkable Spleen:Splenomegaly up to 17 cm. Adrenal glands:Unremarkable. Kidneys:No renal calculus or acute obstruction. No solid or cystic renal mass. No evidence for bowel obstruction. No CT evidence for acute appendicitis. The urinary bladder is unremarkable. Reproductive system:Unremarkable Fairly extensive ascites throughout the abdomen and pelvis as well as some fluid extending into the l eft inguinal hernia without associated bowel involvement. Omental containing umbilical hernia, the herniated fat shows considerable fat stranding as well as so me thickening of the briscoe of the hernia could be related to history of recent umbilical hernia reduction and represent some mesenteric or omental fat contusion or injury. No evidence for bowel ext ension into the umbilical hernia. IMPRESSION: Persistent fat-containing umbilical hernia with considerable fat stranding within the herniated fat a nd adjacent mesenteric fat evidence for mesenteric fat contusion or injury but no evidence for bowel involvement within the hernia to suggest incarcerated bowel. Bilateral pleural effusions and evidence for ascites. Cholelithiasis without evidence for acute cholecystitis. Evidence for a cirrhotic appearing liver with portal caval shunt. Splenomegaly. Colonic diverticulosis without acute diverticulitis.
[2019-07-15 14:25] LABS: Elliptocytes SLIGHT = 2-5 cells (100X) (0-1/hpf); Hypochromia SLIGHT = 6-15 cells (100X) (0-5/hpf); MDiff Complete? YES; Mean Platelet Volume 8.5 fL (7.4-10.4); Microcytosis SLIGHT = 6-15 cells (100X) (0-5/hpf); Ovalocytes SLIGHT = 2-5 cells (100X) (0-1/hpf); Platelet Count 113 thou/uL (130-400); Platelet Morphology Comment Appears Decreased; Polychromasia SLIGHT = 2-3 cells (100X) (0-2/hpf); Schistocytes SLIGHT = 2-5 cells (100X) (0-1/hpf); Tear Drops SLIGHT = 2-5 cells (100X) (0-1/hpf)
== END 2019-07-15 14:19 | disposition home or self-care (01) ==
LOC: ERS 11:45
DX: K42.9 Umbilical hernia without obstruction or gangrene (principal); F17.210 Nicotine dependence, cigarettes, uncomplicated; I10 Essential (primary) hypertension
CPT/HCPCS: 74176; 80053; 83605

== ENCOUNTER → 2019-07-15 | Day surgery (SDC) | payer MEDICARE, BC ==
[2019-07-15 08:49] VITALS: BMI 25.1
[2019-07-15 10:50] LABS: INR-International Normal Ratio 1.4
[2019-07-15 11:06] LABS: Band 3 % (5-11); Elliptocytes SLIGHT = 2-5 cells (100X) (0-1/hpf); Hemoglobin 10.9 g/dL (14.0-18.0); Hypochromia SLIGHT = 6-15 cells (100X) (0-5/hpf); Lymphocytes 20 % (21-51); MDiff Complete? YES; Mean Corpuscular HGB CONC 30.7 g/dL (32.0-36.0); Mean Corpuscular Hemoglobin 23.3 pg (27.0-31.0); Mean Corpuscular Volume 75.9 fL (78.0-98.0); Mean Platelet Volume 6.8 fL (7.4-10.4); Microcytosis SLIGHT = 6-15 cells (100X) (0-5/hpf); Monocytes 17 % (0-10); Neutrophil 60 % (42-75); Ovalocytes SLIGHT = 2-5 cells (100X) (0-1/hpf); Platelet Count 113 thou/uL (130-400); Platelet Morphology Comment Appears Decreased; Polychromasia SLIGHT = 2-3 cells (100X) (0-2/hpf); RBC Distribution Width 18.6 % (11.5-14.5); Red Blood Cell (RBC) Count 4.66 mill/uL (4.70-6.10); Schistocytes SLIGHT = 2-5 cells (100X) (0-1/hpf); White Blood Cell (WBC) Count 6.2 thou/uL (4.8-10.8)
--- NOTE | 2019-07-15 11:44 | ULT ---
EXAM: 4 quadrant abdominal ultrasound: INDICATIONS: Recurrent ascites. Patient presents for paracentesis procedure. COMPARISON: None. FINDINGS: Four-quadrant ultrasound shows no significant ascites. Bilateral pleural effusions are note d. Patient has an umbilical hernia. Bowel is seen within this umbilical hernia. This bowel would not red uce and is tender. The findings are concerning for incarcerated umbilical hernia. IMPRESSION: 1. No significant ascites. Paracentesis procedure is deferred 2. Evidence of incarcerated umbilical hernia. Patient is transferred to the emergency department.
== END ==
LOC: ULT 10:12
PROVIDERS: ATTEND Internal Medicine
DX: K74.60 Unspecified cirrhosis of liver (principal); K42.0 Umbilical hernia with obstruction, without gangrene; J90 Pleural effusion, not elsewhere classified; F10.11 Alcohol abuse, in remission; I10 Essential (primary) hypertension; F17.200 Nicotine dependence, unspecified, uncomplicated; Z79.899 Other long term (current) drug therapy; Z88.5 Allergy status to narcotic agent; Z91.041 Radiographic dye allergy status
CPT/HCPCS: 36415; 49083; 74176; 80053; 83605; 85025; 85610; 85730

== ENCOUNTER 2019-08-12 11:09 | Emergency (ER) | payer MEDICARE, BC ==
[2019-08-12 11:44] LABS: #Lymphocytes 0.6 thou/uL (1.20-3.40); #Monocytes 0.6 thou/uL (0.11-0.59); #Neutrophils 3.7 thou/uL (1.40-6.50); %Basophils 0.8 % (0.0-1.0); %Eosinophils 0.5 % (0.0-10.0); %Lymphocytes 12.4 % (21.0-51.0); %Monocytes 12.3 % (0.0-10.0); Hemoglobin 10.4 g/dL (14.0-18.0); Mean Corpuscular HGB CONC 31.6 g/dL (32.0-36.0); Mean Corpuscular Hemoglobin 23.5 pg (27.0-31.0); Mean Corpuscular Volume 74.3 fL (78.0-98.0); Mean Platelet Volume 8.2 fL (7.4-10.4); Platelet Count 113 thou/uL (130-400); RBC Distribution Width 19.7 % (11.5-14.5); Red Blood Cell (RBC) Count 4.41 mill/uL (4.70-6.10)
[2019-08-12 12:00] LABS: ALT (SGPT) 14 U/L (8-55); AST (SGOT) 28 U/L (5-34); Alkaline Phosphatase 159 U/L (40-110); Anion Gap 12 mmol/L (10-20); BUN (Urea Nitrogen) 37 mg/dL (8.4-25.7); Bilirubin, Total 1.1 mg/dL (0.2-1.2); CK (CPK) 51 U/L (30-200); Calc. Creatinine Clearance 0 mL/min (70-130); Calcium 8.6 mg/dL (7.8-10.44); Carbon Dioxide 23 mmol/L (23-31); Chloride 105 mmol/L (98-107); Estimated GFR-MDRD 33; Globulin 3.1 g/dL (2.4-3.5); Glucose 96 mg/dL (80-115); Potassium 4.4 mmol/L (3.5-5.1); Protein, Total 6.1 g/dL (5.8-8.1); Sodium 136 mmol/L (136-145)
[2019-08-12 12:22] LABS: CKMB 3.2 ng/mL (0-6.6)
--- NOTE | 2019-08-12 12:26 | RAD ---
RADIOGRAPH CHEST 2 VIEWS: Date: 08/12/2019 Time: 12:59 p.m. HISTORY: A 69-year-old male with dyspnea, cough, chest pain. COMPARISON: 06/23/2019 FINDINGS: Bilateral pleural effusions, left greater than right, small to moderate in size on the left. Associat ed dense opacification of the bilateral lung bases. Greater degree of complete silhouetting of the ca rdiac shadow now compared to previous, perhaps because of shallower inspiration or positioning, today . No consolidation of upper lobes. No pneumothorax. IMPRESSION: Bilateral pleural effusions with underlying opacification of the lung bases. JN [] POS: [facility]
== END 2019-08-12 13:30 | disposition home or self-care (01) ==
LOC: ERS 11:09
DX: J90 Pleural effusion, not elsewhere classified (principal); R07.89 Other chest pain; I10 Essential (primary) hypertension; F17.210 Nicotine dependence, cigarettes, uncomplicated; Z79.899 Other long term (current) drug therapy
CPT/HCPCS: 71046; 80053; 82550; 82553; 83880; 84484; 85025; 87804; 93005; 94760

== ENCOUNTER 2019-11-13 20:50 | Inpatient (IN) | payer MEDICARE, BC ==
[2019-11-13 21:39] LABS: Hemoglobin 13.8 g/dL (14.0-18.0); Mean Corpuscular HGB CONC 31.2 g/dL (32.0-36.0); Mean Corpuscular Hemoglobin 24.6 pg (27.0-31.0); Mean Corpuscular Volume 78.9 fL (78.0-98.0); RBC Distribution Width 18.9 % (11.5-14.5)
[2019-11-13 21:48] LABS: ALT (SGPT) 22 U/L (8-55); AST (SGOT) 38 U/L (5-34); Albumin 2.8 g/dL (3.4-4.8); Alkaline Phosphatase 155 U/L (40-110); Anion Gap 15 mmol/L (10-20); BUN (Urea Nitrogen) 25 mg/dL (8.4-25.7); Bilirubin, Total 2.4 mg/dL (0.2-1.2); Calc. Creatinine Clearance 0 mL/min (70-130); Calcium 9.2 mg/dL (7.8-10.44); Carbon Dioxide 26 mmol/L (23-31); Chloride 107 mmol/L (98-107); Estimated GFR-MDRD 56; Globulin 3.2 g/dL (2.4-3.5); Glucose 118 mg/dL (80-115); Potassium 3.9 mmol/L (3.5-5.1); Sodium 144 mmol/L (136-145)
[2019-11-13 21:51] LABS: #Lymphocytes 0.8 thou/uL (1.20-3.40); #Monocytes 1.3 thou/uL (0.11-0.59); #Neutrophils 11.7 thou/uL (1.40-6.50); %Basophils 0.1 % (0.0-1.0); %Eosinophils 0.1 % (0.0-10.0); %Lymphocytes 5.4 % (21.0-51.0); %Monocytes 9.3 % (0.0-10.0); %Neutrophils 85.1 % (42.0-75.0); Elliptocytes SLIGHT = 2-5 cells (100X) (0-1/hpf); MDiff Complete? YES; Mean Platelet Volume 9.6 fL (7.4-10.4); Platelet Count 137 thou/uL (130-400); Platelet Morphology Comment Appears Adequate; White Blood Cell (WBC) Count 13.7 thou/uL (4.8-10.8)
[2019-11-13 21:59] LABS: CKMB 5.8 ng/mL (0-6.6)
[2019-11-13 22:52] LABS: INR-International Normal Ratio 1.8; PTT 36.5 SEC (22.9-36.1); Prothrombin Time 20.4 SEC (12.0-14.7)
--- NOTE | 2019-11-14 00:23 | HP ---
CHIEF COMPLAINT: Altered mental status. HISTORY OF PRESENT ILLNESS: Mr. Collier is a 69-year-old male with past medical history of liver cirrhosis, stage 3 renal failure, congestive heart failure, among others, was brought to the emergency room by his family for altered mental status. As per patient's , the patient was initially complaining of abdominal pain on Saturday night, but family thought this was most likely due to eating spicy soup on Saturday and Saturday. then stated that the patient was given antacid and he gagged in the bathroom, but did not vomit. reported that patient has been in bed all day for the past 2 days with altered mental status and unresponsiveness. stated that the patient at dinner, they found blood around the patient's mouth. In the emergency room, the patient's family requested DNR/DNI. Also, they mentioned that the patient does not want any tubes to be placed or nasogastric tubes placed. They only want comfort measures. The patient was found to have elevated ammonia level. Lactic acid elevated at 4.2, ammonia is 176. The patient is being admitted to the hospital for further management. PAST MEDICAL HISTORY: 1. Liver cirrhosis from alcohol abuse. 2. Hypertension. 3. Chronic kidney disease stage 3. PAST SURGICAL HISTORY: 1. Hernia repair. 2. Bursa sac removed from left elbow. SOCIAL HISTORY: History of alcohol use. The patient has smoked for 30 years. FAMILY HISTORY: Reviewed and noncontributory. HOME MEDICATIONS: Please see home medication reconciliation form for updated medications. ALLERGIES: ALLERGIC TO CODEINE, HYDROCODONE, IODINE. REVIEW OF SYSTEMS: Unable to obtain. The patient is unresponsive. PHYSICAL EXAMINATION: GENERAL: The patient is unresponsive. VITAL SIGNS: Blood pressure 154/70, pulse is 63, respiratory rate is 22, pulse oximetry 98% on room air. HEENT: Head and neck, normocephalic, atraumatic. NECK: Supple. No JVD. CHEST: Fair bilateral air entry. HEART: S1, S2. Regular. ABDOMEN: Distended. Bowel sounds hypoactive. NEUROLOGIC: Patient is unresponsive. Does not follow commands. PSYCHIATRIC: Unable to assess. EXTREMITIES: No clubbing or cyanosis. GENITOURINARY: No flank tenderness. No suprapubic tenderness. LABORATORY DATA: As mentioned above in history of present illness. ASSESSMENT AND PLAN: 1. Acute metabolic encephalopathy. 2. Hepatic encephalopathy. 3. Liver cirrhosis. 4. Lactic acidosis. 5. Coagulopathy. 6. Leukocytosis. PLAN: 1. Admit. 2. Keep n.p.o. 3. The patient is DNR/DNI as per family, also family does not want a nasogastric tube to be placed, also they requested not to consult GI, and they do not want endoscopy as per patient's wishes. 4. IV fluid hydration. 5. IV proton pump inhibitor. 6. Reconcile home medications. 7. DVT prophylaxis as appropriate. 8. Consider consulting hospice in a.m. for further recommendations. 9. Expected length of stay, 2 midnights or more. Job ID: [id number]
[2019-11-14] MEDS ORDERED: Pantoprazole 40 MG VIAL IVP SCH (00:30)
[2019-11-14 02:30] LABS: ALT (SGPT) 23 U/L (8-55); AST (SGOT) 43 U/L (5-34); Albumin 2.7 g/dL (3.4-4.8); Alkaline Phosphatase 156 U/L (40-110); Anion Gap 16 mmol/L (10-20); BUN (Urea Nitrogen) 30 mg/dL (8.4-25.7); Bilirubin, Total 2.6 mg/dL (0.2-1.2); Calc. Creatinine Clearance 0 mL/min (70-130); Carbon Dioxide 22 mmol/L (23-31); Chloride 108 mmol/L (98-107); Estimated GFR-MDRD 52; Globulin 3.3 g/dL (2.4-3.5); Glucose 135 mg/dL (80-115); Sodium 142 mmol/L (136-145)
[2019-11-14 02:38] LABS: Band 6 % (5-11); Hemoglobin 13.1 g/dL (14.0-18.0); Lymphocytes 5 % (21-51); MDiff Complete? YES; Mean Corpuscular HGB CONC 31.4 g/dL (32.0-36.0); Mean Corpuscular Hemoglobin 24.6 pg (27.0-31.0); Mean Corpuscular Volume 78.3 fL (78.0-98.0); Mean Platelet Volume 7.7 fL (7.4-10.4); Monocytes 10 % (0-10); Neutrophil 79 % (42-75); Ovalocytes SLIGHT = 2-5 cells (100X) (0-1/hpf); Platelet Count 126 thou/uL (130-400); Platelet Morphology Comment Appears Adequate; RBC Distribution Width 18.9 % (11.5-14.5); Red Blood Cell (RBC) Count 5.31 mill/uL (4.70-6.10); White Blood Cell (WBC) Count 19.1 thou/uL (4.8-10.8)
[2019-11-14 02:50] VITALS: BMI 33.9
[2019-11-14] MEDS ORDERED: Famotidine/PF 20 mg/2ml Vial SLOW IVP SCH (09:00)
[2019-11-14] MEDS ORDERED: Sodium Chloride 0.9% 1,000 ML IV SCH (10:45)
--- NOTE | 2019-11-14 21:14 | PDOC.HOSPP ---
- Subjective Encounter Date: 11/14/19 Encounter Time: 13:00 Subjective: no overnight events. This morning, family at bedside requests no further workups or treatments, transition to comfort care and hospice. Patient remains lethargic. - Objective Vital Signs & Weight: Vital Signs (12 hours) Temp Pulse Resp BP Pulse Ox 11/14/19 20:54 98.1 F 86 20 173/93 H 97 11/14/19 16:45 98.1 F 67 18 155/76 H 94 L 11/14/19 11:37 98 F 65 18 161/82 H 92 L Weight Admit Weight 250 lb 0.067 oz Weight 250 lb 0.067 oz Result Diagrams: 11/14/19 01:56 11/14/19 01:56 Hospitalist ROS - Review of Systems ROS unobtainable: due to mental status - Medication Medications: Active Medications Generic Name Dose Route Start Last Admin Trade Name Freq PRN Reason Stop Dose Admin Sodium Chloride 1,000 mls @ 50 mls/hr 11/14/19 10:45 11/14/19 12:26 Normal Saline 0.9% IV 1,000 mls .Q20H PEDRO Administration Sodium Chloride 10 ml 11/14/19 21:00 11/14/19 21:09 Flush - Normal Saline IVF Not Given Q12HR PEDRO - Exam General Appearance: ill appearing General - other findings: lethargic Eye: PERRL ENT: normocephalic atraumatic Neck: no JVD Heart: RRR, no murmur, no gallops, no rubs Respiratory: no wheezes, no rales, rhonchi Gastrointestinal: distended, diminished bowl sounds Gastrointestinal - other findings: rigid, periumbilical hernia that is nonreducible Extremities: 1+ LE edema Psychiatric: lethargic Hosp A/P - Plan #hepatic encephalopathy #nonreducible periumbilical hernia #CKD3 -transitioned to comfort care -hospice consulted -otherwise no change in management Disposition/PPx DNAR GI PPx : no Ix DVT PPx: SCDs
[2019-11-15] MEDS ORDERED: Dextrose 5 % And 0.9 % NaCl 1,000 ML IV SCH (02:00)
[2019-11-15] MEDS ORDERED: Pantoprazole 40 MG VIAL IVP SCH (09:00)
[2019-11-15 09:32] VITALS: BP 169/83; TEMP 98
[2019-11-15] MEDS ORDERED: Haloperidol Lactate 5 MG/ML VIAL SLOW IVP PRN (09:41)
[2019-11-15] MEDS: Morphine 2 MG/ML SYRINGE SLOW IVP PRN ×4 (10:42→13:49)
--- NOTE | 2019-11-16 14:54 | DIS ---
DATE OF ADMISSION: 11/14/2019 DATE OF DISCHARGE: 11/15/2019 HOSPITAL COURSE: Mr. Collier is a 69-year-old male with medical history of liver cirrhosis, stage 3 renal failure, congestive heart failure, who presented due to somnolence. He was initially complaining about abdominal pain and shortly afterwards became unresponsive. In the emergency room, the family requested that the patient's code status be changed to DNAR. The patient was diagnosed with hepatic encephalopathy due to liver cirrhosis. During his inpatient stay, the patient remained unresponsive. The day following admission, the family had a discussion with Palliative Care and it was decided to transition the patient to comfort care considering severe comorbidities and poor prognosis due to liver cirrhosis. The patient was transitioned to hospice care to provide continued comfort care for the patient. PHYSICAL EXAMINATION: GENERAL: On exam, the patient was ill appearing and unresponsive. EYES: PERRL. ENT: Normocephalic and atraumatic. NECK: No JVD. HEART: Regular rate and rhythm. No murmur. No gallops. No rubs. RESPIRATORY: Tachypneic, shallow breathing. No wheezes, rales, or rhonchi. GASTROINTESTINAL: Distended. Diminished bowel sounds with the rigid periumbilical hernia that is nonreducible. EXTREMITIES: +1 lower extremity edema. ASSESSMENT AND PLAN: Mr. Collier is a 69-year-old male with a medical history of liver cirrhosis, who presented with hepatic encephalopathy and nonreducible periumbilical hernia. Per the patient's previous wishes, which were conveyed by the family, the patient was transitioned into comfort care and was discharged for hospice, which continued to provide the patient with comfort care. Job ID: [id number]
--- NOTE | 2019-11-17 20:26 | PQF ---
LIBBY DOUGLASS, CARMEN [id number] CLINICAL DOCUMENTATION CLARIFICATION FORM: POST DISCHARGE Addendum to original discharge summary date: ____ Late entry note date: __ DATE:11/17/2019 ATTN:CARMEN TAPIA Please exercise your independent, professional judgment in responding to the clarification form. Clinical indicators are provided on the bottom of this form for your review Please check appropriate box(s): [ x ] Hepatic encephalopathy due to alcohol abuse [ ] Hepatic encephalopathy not due to alcohol abuse [ ] Other diagnosis [ ] Unable to determine For continuity of documentation, please document condition throughout progress notes and discharge summary. Thank You. CLINICAL INDICATORS - SIGNS / SYMPTOMS / LABS Altered mental status-Documented in H&p on by Lamar Benitez MD PMH:Liver cirrhosis from alcohol abuse-Documented in H&p on by Lamar Benitez MD Social history:History of alcohol use-Documented in H&p on by Lamar Benitez MD Ammonia is 176-Documented in H&p on by Lamar Benitez MD Hepatic encephalopathy-Documented in H&p on by Lamar Benitez MD Acute metabolic encephalopathy-Documented in H&p on by Lamar Benitez MD Coagulopathy-Documented in H&p on by Lamar Benitez MD RISK FACTORS Altered mental status-Documented in H&p on by Lamar Benitez MD PMH:Liver cirrhosis from alcohol abuse-Documented in H&p on by Lamar Benitez MD Social history:History of alcohol use-Documented in H&p on by Lamar Benitez MD TREATMENTS: Lactulose 10 gm PO-Documented in medication snapshot Levofloxacin 50 mg po-Documented in medication snapshot IV fluid hydration-Documented in H&p on by Lamar Benitez MD IV proton pump inhibitor-Documented in H&p on by Lamar Benitez MD Transitioned to comfort care-Documented in PN on by Carmen Tapia 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 All Rights Reserved [email or web address] [phone] MTDD
--- NOTE | 2019-11-21 14:48 | EKG ---
Test Reason : Blood Pressure : / mmHG Vent. Rate : 060 BPM Atrial Rate : 060 BPM P-R Int : 176 ms QRS Dur : 092 ms QT Int : 482 ms P-R-T Axes : 109 -09 031 degrees QTc Int : 482 ms Normal sinus rhythm Anterior infarct , age undetermined Abnormal ECG Confirmed by ARLIN MILAN ([id number]), loan expeditor PAT GARCIA ([id number]) on 11/21/2019 2:48:31 PM Referred By: Confirmed By:ARLIN MILAN
== END 2019-11-15 14:27 | disposition hospice, inpatient (51) | DRG 432 ==
LOC: ERS 20:50 → T4-B 11-14 01:19
PROVIDERS: ADMIT Internal Medicine; ATTEND Internal Medicine
DX: K70.40 Alcoholic hepatic failure without coma (principal); G93.41 Metabolic encephalopathy; R40.2342 Coma scale, best motor response, flexion withdrawal, at arrival to emergency department; R40.2122 Coma scale, eyes open, to pain, at arrival to emergency department; R40.2222 Coma scale, best verbal response, incomprehensible words, at arrival to emergency department; E87.2 Acidosis; D68.9 Coagulation defect, unspecified; K92.2 Gastrointestinal hemorrhage, unspecified; I13.0 Hypertensive heart and chronic kidney disease with heart failure and stage 1 through stage 4 chronic kidney disease, or unspecified chronic kidney disease; F10.188 Alcohol abuse with other alcohol-induced disorder; Z66 Do not resuscitate; Z51.5 Encounter for palliative care; N18.3 Chronic kidney disease, stage 3 (moderate); K70.30 Alcoholic cirrhosis of liver without ascites; Z88.5 Allergy status to narcotic agent; Z91.041 Radiographic dye allergy status; K42.9 Umbilical hernia without obstruction or gangrene; I50.9 Heart failure, unspecified; F17.210 Nicotine dependence, cigarettes, uncomplicated
CPT/HCPCS: 36415; 36416; 80053; 82140; 82553; 83605; 84484; 85025; 85610; 85730; 93005; 93010; C9113; J2270

== ENCOUNTER 2019-11-15 14:34 | Inpatient (IN) | payer OTHER ==
[2019-11-15] MEDS ORDERED: Morphine 10 MG/0.5 ML ORAL SYRINGE SL PRN (14:49)
[2019-11-15] MEDS ORDERED: Scopolamine 1.5 mg/72 hour Patch TOP PRN (14:49)
[2019-11-15] MEDS ORDERED: Hyoscyamine Sulfate SL 0.125 mg Tablet SL PRN (14:49)
[2019-11-15] MEDS ORDERED: Ondansetron PF 4 MG/2 ML Vial IVP PRN (14:49)
[2019-11-15] MEDS: Morphine 2 MG/ML SYRINGE SLOW IVP PRN ×3 (15:22→19:17)
[2019-11-15] MEDS: Lorazepam 2 MG/ML VIAL SLOW IVP SCH ×3 (15:23→23:51)
[2019-11-15 18:17] VITALS: BMI 33.9
[2019-11-16] MEDS: Morphine 2 MG/ML SYRINGE SLOW IVP PRN ×4 (01:33→09:49)
[2019-11-16] MEDS: Lorazepam 2 MG/ML VIAL SLOW IVP SCH ×6 (03:04→23:40)
[2019-11-17] MEDS: Lorazepam 2 MG/ML VIAL SLOW IVP SCH ×5 (04:17→18:40)
[2019-11-17 20:24] VITALS: BP 120/70
[2019-11-18] MEDS: Lorazepam 2 MG/ML VIAL SLOW IVP SCH ×3 (00:12→06:25)
[2019-11-18] MEDS: Morphine 2 MG/ML SYRINGE SLOW IVP PRN (02:49)
[2019-11-18] MEDS: Acetaminophen 650 MG Suppository PR PRN ×2 (03:33→08:25)
[2019-11-18] MEDS ORDERED: Acetaminophen 650 MG Suppository PR SCH (06:00)
[2019-11-18 06:25] VITALS: TEMP 100.8
--- NOTE | 2019-11-19 12:26 | DIS ---
DATE OF ADMISSION: 11/15/2019 DATE OF DISCHARGE: 11/18/2019 BRIEF SUMMARY OF HOSPITAL COURSE: The patient was a 69-year-old white male who was admitted to [facility] on 11/14/2019 for hepatic encephalopathy secondary to end-stage liver cirrhosis. The patient was unresponsive and due to the patient's previous wishes and family's wishes, he was transferred to hospice status and made inpatient GIP. During his hospital course, the patient continued to be unresponsive throughout. His vital signs were fairly stable. He did have elevated temperature. His symptoms were managed with IV morphine, IV Ativan, and scopolamine patches. The patient was made comfortable without any signs of worsening distress. He did have some apneic spells on the day of 11/17/2019 and throughout the night and then the following morning at 0858 staff member went into the room to assess the patient who was found to have no respirations, no heart rate. Charge nurse evaluated the patient and he was found to be at that time, at 8:58 a.m. cause of was asystole secondary to cardiac arrhythmia related to encephalopathy which was caused by end-stage liver cirrhosis. Family was notified as well as inpatient care team and hospice team and the body was released to the home as appropriate. Job ID: [id number]
--- NOTE | 2019-11-20 17:19 | HP ---
ADMISSION DIAGNOSIS TO HOSPICE: End-stage liver cirrhosis with encephalopathy. DATE OF : 11/18/2019. DIAGNOSIS OF : End-stage liver cirrhosis with encephalopathy. REASON FOR TRANSFER: Family requesting inpatient hospice for acute care management in a terminal condition. HISTORY OF PRESENT ILLNESS: The patient is a 69-year-old white male who was admitted to [facility] on November 14, 2019, after complaining of abdominal pain and then became unresponsive. The patient was admitted to the hospital, diagnosed with hepatic encephalopathy due to liver cirrhosis. The patient continued to remain unresponsive during his hospital stay, and family discussed the care of palliative care and decided to transition the patient to comfort measures only and palliation due to his terminal state. The patient had severe symptoms with issues of pain and respiratory distress, requiring acute care management and that is the GIP status. The patient was transitioned to hospice care. REVIEW OF SYSTEMS: Unable to determine due to the patient's terminal status and unresponsiveness. PHYSICAL EXAMINATION: GENERAL: The patient appeared unresponsive to verbal stimuli and touch. VITAL SIGNS: Blood pressure 142/68, respiratory rate was 24, pulse was 92. HEENT: Oropharynx was dry with malodorous appearance. NECK: No jugular venous distention. CHEST: Diffuse rhonchi bilaterally with poor breath sounds. HEART: Rapid, regular rate and rhythm. ABDOMEN: Distended. There was a region of periumbilical hernia that was not reducible. There was diminished, but present bowel sounds. EXTREMITIES: 1+ to 2+ edema with pale extremities and poor capillary refill. ASSESSMENT AND PLAN: Hepatic encephalopathy. The patient with end-stage liver cirrhosis. Family is very aware of patient's terminal state. Per patient and family wishes, he is a DNR and requested for comfort measures only, which will be instituted. The patient will be started on scopolamine patches for significant secretions, will be given morphine for pain. Ativan for restlessness IV. We will discontinue all IV fluids. The patient does have a Ceballos catheter in place. DISPOSITION: The patient's life expectancy is likely less than 7 days. He is appropriate for inpatient hospice due to management of his acute symptoms. We will follow the patient daily. Job ID: [id number]
--- NOTE | 2019-11-23 00:46 | PQF ---
LIBBY DOUGLASS KIA E MD [id number] CLINICAL DOCUMENTATION CLARIFICATION FORM: POST DISCHARGE Addendum to original discharge summary date: ____ Late entry note date: __ DATE:11/23/2019 ATTN:ANAMARIA KIM MD Please exercise your independent, professional judgment in responding to the clarification form. Clinical indicators are provided on the bottom of this form for your review Please check appropriate box(s): kindly clarify the hepatic encephalopathy [ X] Acute hepatic encephalopathy (Please note this patient was admitted to inpatient hospice and was not an acute admission to hospital, thus does not require queries) [ ] Chronic hepatic encephalopathy [ ] Acute hepatic encephalopathy with coma [ ] Chronic hepatic encephalopathy with coma [ ] Other diagnosis [ ] Unable to determine For continuity of documentation, please document condition throughout progress notes and discharge summary. Thank You. CLINICAL INDICATORS - SIGNS / SYMPTOMS / LABS Admission diagnosis to hospice:End stage liver cirrhosis with encephalopathy- Documented in H&P on 11/14 by Anamaria Kim MD Hepatic encephalopathy. The patient with end stage liver cirrhosis, Family is callum aware of patient,s terminal state.Per patient and family wishes , he is a DNR and requested for comfort measures only -Documented in H&P on 11/14 by Anamaria Kim MD Cause of was asystolic secondary to cardiac arrhythmia related to encephalopathy which was caused by end stage liver cirrhosis -Documented in Discharge summary on 11/17 by Anamaria Kim MD RISK FACTORS Cause of was asystolic secondary to cardiac arrhythmia related to encephalopathy which was caused by end stage liver cirrhosis -Documented in Discharge summary on 11/17 by Anamaria Kim MD TREATMENTS: The patient will be started on scopolamine patches for significant secretions will be given morphine for pain. Ativan for restlessness IV -Documented in H&P on 11/14 by Anamaria Kim MD [employer] Can Fe[employer] Winform Viewer (This form is maintained as a part of the permanent medical record) 2014 [employer] All Rights Reserved [email or web address]
== END 2019-11-18 08:56 | disposition expired | DRG 951 ==
LOC: T4-B 14:34
PROVIDERS: ADMIT Family Medicine; ATTEND Family Medicine
DX: Z51.5 Encounter for palliative care (principal); K72.00 Acute and subacute hepatic failure without coma; K70.30 Alcoholic cirrhosis of liver without ascites; Z66 Do not resuscitate; I49.8 Other specified cardiac arrhythmias; I46.8 Cardiac arrest due to other underlying condition; Z88.5 Allergy status to narcotic agent; Z91.041 Radiographic dye allergy status; I12.9 Hypertensive chronic kidney disease with stage 1 through stage 4 chronic kidney disease, or unspecified chronic kidney disease; N18.3 Chronic kidney disease, stage 3 (moderate); F17.210 Nicotine dependence, cigarettes, uncomplicated; F10.21 Alcohol dependence, in remission
CPT/HCPCS: J2060; J2270